=== PATIENT | female | born 1955 | race Caucasian/White ===

== ENCOUNTER → 2016-08-12 | Outpatient (CLI) | payer OTHER, MEDICAID ==
[2016-05-07 13:13] VITALS: BP 111/92
--- NOTE | 2016-08-12 11:11 | RAD ---
HISTORY: Preoperative evaluation for shoulder surgery Study: Two view chest Comparison: 03/08/2016 Findings: Stable right IJ port catheter. The lungs are clear without consolidation, effusion or pneumothorax. The cardiac and mediastinal contours are within normal limits. The soft tissues are unremarkable. IMPRESSION: 1. No acute cardiopulmonary abnormality. Reported By:
[2016-08-12 11:33] LABS: BILIRUBIN,URINE NEGATIVE (NEGATIVE); BLOOD/HEMOGLOBIN,URINE 3+ (NEGATIVE); GLUCOSE, URINE 4+ (NEGATIVE); KETONES,URINE NEGATIVE (NEGATIVE); LEUKOCYTE ESTERASE ,URINE NEGATIVE (NEGATIVE); NITRITES,URINE NEGATIVE (NEGATIVE); PROTEIN,URINE NEGATIVE (NEGATIVE); UROBILINOGEN,URINE NORMAL (NORMAL)
[2016-08-12 11:40] LABS: ALANINE AMINOTRANSFERASE 26 Units/L (12-78); ALBUMIN 3.7 g/dL (3.4-5.0); ALKALINE PHOSPHATASE 103 Units/L (46-116); ASPARTATE AMINO TRANSFERASE 13 Units/L (15-37); BLOOD UREA NITROGEN 19 mg/dL (7-18); CALCIUM 8.7 mg/dL (8.5-10.1); CARBON DIOXIDE 27.1 mmol/L (21-32); CHLORIDE 103 mmol/L (98-107); COR NA(FOR HYPERGLY) 142 mmol/L (136-145); CREATININE 0.81 mg/dL (0.55-1.02); GLUCOSE 223 mg/dL (65-99); SODIUM 139 mmol/L (136-145); TOTAL PROTEIN 7.4 g/dL (6.4-8.2); eGFR BLACK RACES > 60 (>60); eGFR NON BLACK RACES > 60 (>60)
[2016-08-12 11:42] LABS: APPEARANCE,URINE CLEAR (CLEAR); BACTERIA,URINE TRACE /HPF (NEGATIVE); COLOR,URINE YELLOW (YELLOW); SQUAMOUS EPITHELIAL CELL,UR RARE /HPF (NEGATIVE)
[2016-08-12 11:53] LABS: BASOPHILS # (AUTO) 0.1 X10^3/uL (0.0-0.1); BASOPHILS % (AUTO) 1.4 % (0.2-1.0); EOSINOPHILS # (AUTO) 0.2 x10^3/uL (0.0-0.2); EOSINOPHILS % (AUTO) 1.8 % (0.9-2.9); HEMATOCRIT 46.6 % (36.0-47.0); HEMOGLOBIN 15.4 g/dL (12.0-16.0); LYMPHOCYTES # (AUTO) 3.1 X10^3/uL (1.3-2.9); LYMPHOCYTES % (AUTO) 31.8 % (21.0-51.0); MEAN CORPUSCULAR HEMOGLOBIN 30.1 pg (27.0-34.0); MEAN CORPUSCULAR HGB CONC 33.2 g/dL (33.0-35.0); MEAN CORPUSCULAR VOLUME 90.7 fL (80.0-100.0); MEAN PLATELET VOLUME 9.9 fL (7.4-11.0); MONOCYTES # (AUTO) 0.6 x10^3/uL (0.3-0.8); MONOCYTES % (AUTO) 6.8 % (0.0-13.0); NEUTROPHILS # (AUTO) 5.6 x10^3/uL (2.2-4.8); NEUTROPHILS % (AUTO) 58.2 % (42.0-75.0); PLATELET COUNT 270 X10^3/uL (150.0-450.0); RED BLOOD COUNT 5.14 X10^6/uL (3.5-5.4); RED CELL DISTRIBUTION WIDTH 14.5 % (11.6-16.5); WHITE BLOOD COUNT 9.6 X10^3/uL (3.6-10.0)
[2016-08-12 12:38] LABS: ERYTHROCYTE SEDIMENTATION RATE 86 MM/HOUR (0-20)
== END ==
LOC: LAB 10:32
PROVIDERS: ATTEND Specialist
DX: Z01.818 Encounter for other preprocedural examination (principal); Z01.810 Encounter for preprocedural cardiovascular examination; Z01.811 Encounter for preprocedural respiratory examination; Z79.899 Other long term (current) drug therapy; Z11.8 Encounter for screening for other infectious and parasitic diseases; M75.82 Other shoulder lesions, left shoulder; M19.012 Primary osteoarthritis, left shoulder
CPT/HCPCS: 36415; 71020; 80053; 81001; 85025; 85652; 86140; 87641; 93005; 93010

== ENCOUNTER → 2016-08-18 | Day surgery (SDC) | payer OTHER, MEDICAID ==
[~2016-08-18] MED LIST: ADRENALINE CHL INJ ONE; BENADRYL INJ 50 MG VIAL IVP PRN; D5 LR 1000 ML 1,000 ML IV ONE; DILAUDID INJ ONE; DIPRIVAN VIAL ONE; DYLOJECT INJ ONE; KENALOG INJ 40 MG ONE; MARCAINE 0.25% INJ ONE; MARCAINE 0.25% WITH EPI IJ ONE; NEOSTIGMINE INJ ONE; NORCURON INJ 10 MG VIAL ONE; NS 50 ML IV + SPIKE MINIBAG* 50 ML IV ONE; NS IRRIGATION 3000 ML 3,000 ML with ADRENALINE CHL INJ 1 MG IR ONE; PHENERGAN INJ 25 MG IVP PRN; QUELICIN (OR ANECTINE) ONE; REGLAN INJ 10 MG VIAL IVP PRN; ROBINUL ONE; ULTANE GAS IN ONE; VERSED ONE; ZOFRAN INJ 4 MG VIAL IVP PRN; ZOFRAN INJ 4 MG VIAL ONE
[2016-08-18] MEDS: ANCEF VIAL 1 GM ONE ×4 (08:30→08:45)
[2016-08-18] MEDS: FENTANYL INJ 100 mcg ONE ×2 (08:32→08:40)
[2016-08-18] MEDS: DILAUDID INJ IVP PRN ×2 (09:56→10:08)
[2016-08-18 11:34] VITALS: BP 106/64
== END ==
LOC: SURG1 07:27
PROVIDERS: ATTEND Specialist
PROC: 0MN24ZZ Release Left Shoulder Bursa and Ligament, Percutaneous Endoscopic Approach (ICD-10-PCS; principal; 2016-08-18 08:30)
PROC: 0PBB4ZZ Excision of Left Clavicle, Percutaneous Endoscopic Approach (ICD-10-PCS; principal; 2016-08-18 08:30)
DX: M75.42 Impingement syndrome of left shoulder (principal); M19.012 Primary osteoarthritis, left shoulder
CPT/HCPCS: A4216; A4222; S0020; J0170; J0330; J0690; J1170; J2250; J2405; J2710; J3010; J3301; J3490; J7120

== ENCOUNTER 2016-08-23 08:42 | Emergency (ER) | payer OTHER, MEDICAID ==
[2016-08-23 08:52] VITALS: BP 152/88; BMI 32.1
--- NOTE | 2016-08-23 09:38 | DR.GENAD ---
HPI - PCP Primary Care Physician: holli - HPI Comment HPI Comment: PATIENT HAD LEFT ROTATORY CUFF REPAIR 5 DAYS AGO. ONE OF THE WOUND IS DRAINIG. NO FEVER OR REDNESS. - Complaint/Symptoms Chief Complaint Doctors Comments: WOUND DRAINAGE. Chief Complaint:: patient stated had shoulder surgery on 08-18-16 and it starting bleeding and her home health aid stated she could not change the dressing due to bleeding. the office stated to come to the er. 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 - Family History History of Family Medical Conditions: Yes Family Medical History: Diabetes Mellitus, Cancer, [place], Coronary Artery Disease, Sudden Cardiac , Hypertension - Social History Does patient currently use any type of tobacco product: Yes Have you used tobacco products in the last 12 months: Yes Type of Tobacco Use: Cigarettes How many years tobacco product used: 40 Does any household member use tobacco: No Alcohol Use: None Do you use any recreational Drugs:: No Lives With: Family Lives Where: Home - infectious screening In the last 2 months have you had wt loss of >10#?: NO Have you had fever, night sweats or hemotysis?: No Have you traveled outside the country in the last 6 months?: No Isolation: Standard ROS - Review of Systems Constitutional: No Symptoms Reported. negative: Fever Eyes: No Symptoms Reported ENTM: No Symptoms Reported Respiratoy: No Symptoms Reported Cardiovascular: No Symptoms Reported Gastrointestinal/Abdominal: No Symptoms Reported Genitourinary: No Symptoms Reported Neurological: No Symptoms Reported Musculoskeletal: Left, Shoulder Integumentary: Wound (DRAINAGE LEFT SHOULDER WOUND.) Endocrine: No Symptoms Reported All Other Systems: Reviewed and Negative PE - Vital Signs Vitals: Pulse Rate 105 Respiratory Rate 16 Blood Pressure [Right Arm] 127/61 Blood Pressure [Left Arm] 137/60 Blood Pressure 152/88 O2 Sat by Pulse Oximetry 99 - General Limitations: No Limitations - Head Head Exam: Normal Inspection - Eyes Eye exam: Normal Appearance - Neck Neck Exam: Trachea Midline - Respiratory Respiratory Exam: Bilateral Clear to Auscultation - Cardiovascular Cardiovascular Exam: Regular Rate, Normal Rhythm, Normal Heart Sounds - Extremities Extremities Exam: Tenderness (LT SHOULDER) - Neurologic Neurological Exam: Alert, Oriented X3 - Skin Skin Exam: Other (LT SHOULDER WOUND RICHARD INTACT. NO BLEEDING OR DRAINAGE.) MDM - Differential Diagnosis Differential Diagnosis: WOUCH CHECK RIGHT SHOULDER. WOUND DRESSING. Course - Treatment Treatment: SEE ORDERS. DRESSING CHANGE IN ED. - Education/Counseling Education/Counseling: Patient, Education Educated On: Diagnosis, Needs for Follow Up - Diagnosis Discharge Problem: Visit for wound check - Discharge Plan Disposition: 01 HOME, SELF-CARE Condition: Stable - Follow ups/Referrals Follow ups/Referrals: FARSHAD FRAUSTO [Primary Care Provider] - 3 days - Instructions Instructions: Wound Care Additional Instructions: RETURN [facility] IF WORSE.
== END 2016-08-23 10:01 | disposition home or self-care (01) ==
LOC: ER 08:42
DX: Z48.01 Encounter for change or removal of surgical wound dressing (principal)
CPT/HCPCS: 10060; 99281; 99282

== ENCOUNTER 2016-08-26 07:58 | Observation (INO) | payer OTHER, MEDICAID ==
[2016-08-26] MEDS ORDERED: NS 1000 ML 1,000 ML IV ONE (08:06)
[2016-08-26] MEDS ORDERED: ZOFRAN INJ 4 MG VIAL IVP ONE (08:07)
--- NOTE | 2016-08-26 08:11 | DR.GENAD ---
HPI - PCP Primary Care Physician: hunt - Complaint/Symptoms Chief Complaint:: patient stated she has been vomiting and diarrhea since last night with abd pain. 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 - Family History History of Family Medical Conditions: Yes Family Medical History: Diabetes Mellitus, Cancer, [place], Coronary Artery Disease, Sudden Cardiac , Hypertension - Social History Does patient currently use any type of tobacco product: Yes Have you used tobacco products in the last 12 months: Yes How many years tobacco product used: 30 Does any household member use tobacco: No Alcohol Use: None Do you use any recreational Drugs:: No Lives With: Family Lives Where: Home - infectious screening In the last 2 months have you had wt loss of >10#?: NO Have you had fever, night sweats or hemotysis?: No Have you traveled outside the country in the last 6 months?: No Isolation: Standard ROS - Review of Systems Constitutional: Weakness Eyes: No Symptoms Reported ENTM: No Symptoms Reported Respiratoy: No Symptoms Reported Cardiovascular: No Symptoms Reported Gastrointestinal/Abdominal: Diarrhea, Nausea, Vomiting Genitourinary: No Symptoms Reported Neurological: No Symptoms Reported Musculoskeletal: No Symptoms Reported Integumentary: No Symptoms Reported Hematologic/Lymphatic: No Symptoms Reported Endocrine: No Symptoms Reported All Other Systems: Reviewed and Negative PE - Vital Signs Vitals: Temperature 98.2 F Pulse Rate 120 Respiratory Rate 16 Blood Pressure [Right Arm] 127/61 Blood Pressure [Left Arm] 137/60 Blood Pressure 130/95 O2 Sat by Pulse Oximetry 95 - General Limitations: No Limitations General Appearance: Alert - Eyes Eye exam: Normal Appearance, EOMI. negative: Scleral Icterus, Conjunctival Injection - ENT ENT Exam: Mucous Membranes Dry External Ear Exam: Normal External Inspection - Neck Neck Exam: Normal Inspection, Full ROM, Trachea Midline - Chest Chest Inspection: Normal Inspection - Respiratory Respiratory Exam: negative: Accessory Muscle Use, Respiratory Distress Respiratory Exam: Bilateral Clear to Auscultation - Cardiovascular Cardiovascular Exam: Tachycardia - Abdominal Exam Abdominal Exam: Normal Inspection, Normal Bowel Sounds, Soft. negative: Distention, Guarding, Rebound - Neurologic Neurological Exam: Alert, Oriented X3, CN II-XII Intact - Psychiatric Psychiatric Exam: Depressed - Skin Skin Exam: Intact, Normal Color Course - Consultation Called: 09:50 Call Returned: 09:50 Consultation Comments: case discussed with DR. Hunt admit and get AAS. give IVF ROR - Labs Reviewed Result Diagrams: 08/26/16 08:17 08/26/16 08:17 Laboratory: WBC 11.5 X10^3/uL (3.6-10.0) H 08/26/16 08:17 RBC 5.25 X10^6/uL (3.5-5.4) 08/26/16 08: Hgb 16.1 g/dL (12.0-16.0) H 08/26/16 08: Hct 47.2 % (36.0-47.0) H 08/26/16 08: MCV 89.9 fL (80.0-100.0) 08/26/16 08: MCH 30.7 pg (27.0-34.0) 08/26/16 08: MCHC 34.2 g/dL (33.0-35.0) 08/26/16 08: RDW 14.7 % (11.6-16.5) 08/26/16 08:17 Plt Count 229 X10^3/uL (150.0-450.0) 08/26/16 08:17 MPV 9.5 fL (7.4-11.0) 08/26/16 08:17 Neut % 86.2 % (42.0-75.0) H 08/26/16 08: Lymph % 6.3 % (21.0-51.0) L 08/26/16: [place] % 5.5 % (0.0-13.0) 08/26/16 08:17 Eos % 1.0 % (0.9-2.9) 08/26/16 08: Baso % 1.0 % (0.2-1.0) 08/26/16 08: Neut # 9.9 x10^3/uL (2.2-4.8) H 08/26/16 08:17 Lymph # 0.7 X10^3/uL (1.3-2.9) L 08/26/16 08:17 [place] # 0.6 x10^3/uL (0.3-0.8) 08/26/16 08:17 Eos # 0.1 x10^3/uL (0.0-0.2) 08/26/16 08:17 Baso # 0.1 X10^3/uL (0.0-0.1) 08/26/16 08:17 Absolute Nucleated RBC 0.0 /100WBC 08/26/16 08:17 Sodium 142 mmol/L (136-145) 08/26/16 08:17 Corrected Sodium 143 mmol/L (136-145) 08/26/16 08:17 Potassium 4.2 mmol/L (3.5-5.1) 08/26/16 08:17 Chloride 104 mmol/L (98-107) 08/26/16 08:17 Carbon Dioxide 19.4 mmol/L (21-32) L 08/26/16 08:17 BUN 16 mg/dL (7-18) 08/26/16 08:17 Creatinine 0.76 mg/dL (0.55-1.02) 08/26/16 08:17 Est GFR (MDRD) Af Amer > 60 (>60) 08/26/16 08:17 Est GFR (MDRD) Non-Af > 60 (>60) 08/26/16 08:17 Glucose 154 mg/dL (65-99) H 08/26/16 08:17 Calcium 8.4 mg/dL (8.5-10.1) L 08/26/16 08:17 Corrected Calcium TNP 08/26/16 08:17 Total Bilirubin 0.40 mg/dL (0.2-1.0) 08/26/16 08:17 AST 23 Units/L (15-37) 08/26/16 08:17 ALT 30 Units/L (12-78) 08/26/16 08:17 Alkaline Phosphatase 99 Units/L (46-116) 08/26/16 08:17 Total Protein 7.2 g/dL (6.4-8.2) 08/26/16 08:17 Albumin 3.5 g/dL (3.4-5.0) 08/26/16 08:17 Globulin 3.7 g/dL (2.5-4.5) 08/26/16 08:17 Albumin/Globulin Ratio 0.9 Ratio (1.1-2.1) L 08/26/16 08:17 Lipase 64 Units/L (73-393) L 08/26/16 08:17 Specimen Type Clean catch urine 08/26/16 09:25 Urine Color Yellow (YELLOW) 08/26/16 09:25 Urine Appearance Hazy (CLEAR) 08/26/16 09:25 Urine pH 5.0 (5.0 - 8.0) 08/26/16 09:25 Ur Specific [place] 1.025 (1.000-1.030) 08/26/16 09:25 Urine Protein 2+ (NEGATIVE) 08/26/16 09:25 Urine Glucose (UA) 4+ (NEGATIVE) 08/26/16 09:25 Urine Ketones 4+ (NEGATIVE) 08/26/16 09:25 Urine Occult Blood 4+ (NEGATIVE) 08/26/16 09:25 Urine Nitrite Negative (NEGATIVE) 08/26/16 09:25 Urine Bilirubin Negative (NEGATIVE) 08/26/16 09:25 Urine Urobilinogen Normal (NORMAL) 08/26/16 09:25 Ur Leukocyte Esterase Negative (NEGATIVE) 08/26/16 09:25 Urine RBC 0-3 /HPF (NEGATIVE) 08/26/16 09:25 Urine WBC 0-3 /HPF (NEGATIVE) 08/26/16 09:25 Ur Squamous Epith Cells Few /HPF (NEGATIVE) 08/26/16 09:25 Urine Bacteria Trace /HPF (NEGATIVE) 08/26/16 09:25 Ur Culture Indicated? No/not indicated 08/26/16 09:25 Acetone, Semi-Quant Moderate (NEGATIVE) H 08/26/16 08:17 - Diagnosis Discharge Problem: Gastroenteritis - Discharge Plan Condition: Stable - Follow ups/Referrals Follow ups/Referrals: Stuart Toth [Primary Care Provider] - 3 days - Instructions
[2016-08-26] MEDS ORDERED: ZOFRAN INJ 4 MG VIAL ONE (08:18)
[2016-08-26] MEDS ORDERED: NS 1000 ML 1,000 ML ONE (08:18)
[2016-08-26 08:33] LABS: BASOPHILS # (AUTO) 0.1 X10^3/uL (0.0-0.1); EOSINOPHILS # (AUTO) 0.1 x10^3/uL (0.0-0.2); HEMATOCRIT 47.2 % (36.0-47.0); HEMOGLOBIN 16.1 g/dL (12.0-16.0); LYMPHOCYTES # (AUTO) 0.7 X10^3/uL (1.3-2.9); LYMPHOCYTES % (AUTO) 6.3 % (21.0-51.0); MEAN CORPUSCULAR HEMOGLOBIN 30.7 pg (27.0-34.0); MEAN CORPUSCULAR HGB CONC 34.2 g/dL (33.0-35.0); MEAN CORPUSCULAR VOLUME 89.9 fL (80.0-100.0); MEAN PLATELET VOLUME 9.5 fL (7.4-11.0); MONOCYTES # (AUTO) 0.6 x10^3/uL (0.3-0.8); MONOCYTES % (AUTO) 5.5 % (0.0-13.0); NEUTROPHILS # (AUTO) 9.9 x10^3/uL (2.2-4.8); NEUTROPHILS % (AUTO) 86.2 % (42.0-75.0); PLATELET COUNT 229 X10^3/uL (150.0-450.0); RED BLOOD COUNT 5.25 X10^6/uL (3.5-5.4); RED CELL DISTRIBUTION WIDTH 14.7 % (11.6-16.5); WHITE BLOOD COUNT 11.5 X10^3/uL (3.6-10.0)
[2016-08-26 08:44] LABS: ALANINE AMINOTRANSFERASE 30 Units/L (12-78); ALBUMIN 3.5 g/dL (3.4-5.0); ALKALINE PHOSPHATASE 99 Units/L (46-116); ASPARTATE AMINO TRANSFERASE 23 Units/L (15-37); BLOOD UREA NITROGEN 16 mg/dL (7-18); CALCIUM 8.4 mg/dL (8.5-10.1); CARBON DIOXIDE 19.4 mmol/L (21-32); CHLORIDE 104 mmol/L (98-107); COR NA(FOR HYPERGLY) 143 mmol/L (136-145); CREATININE 0.76 mg/dL (0.55-1.02); GLUCOSE 154 mg/dL (65-99); LIPASE 64 Units/L (73-393); SODIUM 142 mmol/L (136-145); TOTAL PROTEIN 7.2 g/dL (6.4-8.2); eGFR BLACK RACES > 60 (>60); eGFR NON BLACK RACES > 60 (>60)
[2016-08-26 09:38] LABS: BILIRUBIN,URINE NEGATIVE (NEGATIVE); BLOOD/HEMOGLOBIN,URINE 4+ (NEGATIVE); GLUCOSE, URINE 4+ (NEGATIVE); KETONES,URINE 4+ (NEGATIVE); LEUKOCYTE ESTERASE ,URINE NEGATIVE (NEGATIVE); NITRITES,URINE NEGATIVE (NEGATIVE); PROTEIN,URINE 2+ (NEGATIVE); UROBILINOGEN,URINE NORMAL (NORMAL)
[2016-08-26 09:48] LABS: APPEARANCE,URINE HAZY (CLEAR); BACTERIA,URINE TRACE /HPF (NEGATIVE); COLOR,URINE YELLOW (YELLOW); RBC,URINE 0-3 /HPF (NEGATIVE); SQUAMOUS EPITHELIAL CELL,UR FEW /HPF (NEGATIVE)
[2016-08-26] MEDS ORDERED: REGLAN INJ 10 MG VIAL IVP ONE (09:59)
[2016-08-26] MEDS ORDERED: REGLAN INJ 10 MG VIAL ONE (10:00)
--- NOTE | 2016-08-26 10:31 | RAD ---
HISTORY: Abdominal pain, nausea, vomiting Study: Acute abdominal series Comparison: Abdomen CT 03/07/2014 Findings: Right subclavian port catheter terminates in the region of the SVC. The lungs are clear without cons olidation, effusion or pneumothorax. The cardiac and mediastinal contours are within normal limits. Flat plate and upright evaluation of the abdomen demonstrates a normal bowel gas pattern. No gross f ree intraperitoneal air. No pathological soft tissue mass or calcification can be observed. There i s chronic lumbar dextroscoliosis. Cholecystectomy clips are present. IMPRESSION: 1. No acute cardiopulmonary disease. 2. No evidence for acute abdominal pathology identified. Reported By:
[2016-08-26] MEDS ORDERED: LINZESS PO ONE (12:58)
[2016-08-26] MEDS ORDERED: COLACE CAP 100 MG PO STA (12:58)
[2016-08-26] MEDS ORDERED: REQUIP PO PRN (13:02)
[2016-08-26] MEDS: NS 1000 ML 1,000 ML IV SCH ×2 (13:12→21:13)
[2016-08-26] MEDS ORDERED: [UNRECOGNIZED DRUG - OTHER] PO SCH (13:15)
[2016-08-26] MEDS: CLARITIN PO SCH (13:39)
[2016-08-26] MEDS: ASPIRIN EC 81 MG PO SCH (13:39)
[2016-08-26] MEDS: NexIUM PO SCH (13:39)
[2016-08-26] MEDS: ACTOS PO SCH (13:40)
[2016-08-26] MEDS: GLUCOPHAGE XR PO SCH ×2 (13:40→21:09)
[2016-08-26] MEDS: SINGULAIR TAB 10 MG PO SCH (13:40)
[2016-08-26] MEDS: SYNTHROID 100 mcg TAB PO SCH (13:40)
[2016-08-26] MEDS: NEURONTIN CAP 300 MG PO SCH ×2 (13:40→21:08)
[2016-08-26] MEDS: MOBIC TAB 15 MG PO SCH (13:40)
[2016-08-26] MEDS: [UNRECOGNIZED DRUG - OTHER] PO SCH (13:41)
[2016-08-26] MEDS: [UNRECOGNIZED DRUG - OTHER] PO SCH (13:41)
[2016-08-26 14:23] VITALS: BMI 32.8
[2016-08-26] MEDS: NORCO 10/325 TAB PO PRN ×2 (14:59→21:09)
[2016-08-26] MEDS: ZOFRAN INJ 4 MG VIAL IVP PRN (16:32)
[2016-08-26] MEDS: PHENERGAN TAB 25 MG PO PRN (21:10)
[2016-08-26] MEDS: LIPITOR TAB 20 MG PO SCH (21:10)
[2016-08-27] MEDS: NS 1000 ML 1,000 ML IV SCH ×3 (03:00→16:44)
[2016-08-27] MEDS: ZOFRAN INJ 4 MG VIAL IVP PRN ×2 (04:15→13:24)
[2016-08-27] MEDS: NORCO 10/325 TAB PO PRN ×4 (04:15→23:01)
[2016-08-27] MEDS: NEURONTIN CAP 300 MG PO SCH ×3 (05:45→21:08)
[2016-08-27 05:56] LABS: BASOPHILS # (AUTO) 0.1 X10^3/uL (0.0-0.1); BASOPHILS % (AUTO) 0.8 % (0.2-1.0); EOSINOPHILS # (AUTO) 0.2 x10^3/uL (0.0-0.2); EOSINOPHILS % (AUTO) 2.8 % (0.9-2.9); HEMATOCRIT 43.5 % (36.0-47.0); HEMOGLOBIN 14.4 g/dL (12.0-16.0); LYMPHOCYTES # (AUTO) 1.5 X10^3/uL (1.3-2.9); LYMPHOCYTES % (AUTO) 21.2 % (21.0-51.0); MEAN CORPUSCULAR HEMOGLOBIN 29.9 pg (27.0-34.0); MEAN CORPUSCULAR HGB CONC 33.1 g/dL (33.0-35.0); MEAN CORPUSCULAR VOLUME 90.3 fL (80.0-100.0); MEAN PLATELET VOLUME 9.9 fL (7.4-11.0); MONOCYTES # (AUTO) 0.9 x10^3/uL (0.3-0.8); MONOCYTES % (AUTO) 12.6 % (0.0-13.0); NEUTROPHILS # (AUTO) 4.4 x10^3/uL (2.2-4.8); NEUTROPHILS % (AUTO) 62.6 % (42.0-75.0); PLATELET COUNT 211 X10^3/uL (150.0-450.0); RED BLOOD COUNT 4.82 X10^6/uL (3.5-5.4); RED CELL DISTRIBUTION WIDTH 14.7 % (11.6-16.5)
[2016-08-27 06:18] LABS: ALANINE AMINOTRANSFERASE 27 Units/L (12-78); ALKALINE PHOSPHATASE 81 Units/L (46-116); ASPARTATE AMINO TRANSFERASE 23 Units/L (15-37); BLOOD UREA NITROGEN 15 mg/dL (7-18); CALCIUM 7.5 mg/dL (8.5-10.1); CARBON DIOXIDE 23.1 mmol/L (21-32); CHLORIDE 105 mmol/L (98-107); COR CA(FOR HYPOALB) 8.3 mg/dL (8.5-10.1); COR NA(FOR HYPERGLY) 142 mmol/L (136-145); CREATININE 0.75 mg/dL (0.55-1.02); GLUCOSE 170 mg/dL (65-99); SODIUM 140 mmol/L (136-145); TOTAL PROTEIN 6.3 g/dL (6.4-8.2); eGFR BLACK RACES > 60 (>60); eGFR NON BLACK RACES > 60 (>60)
[2016-08-27] MEDS: ACTOS PO SCH (09:57)
[2016-08-27] MEDS: MOBIC TAB 15 MG PO SCH (09:57)
[2016-08-27] MEDS: CLARITIN PO SCH (09:57)
[2016-08-27] MEDS: GLUCOPHAGE XR PO SCH ×2 (09:58→21:08)
[2016-08-27] MEDS: SYNTHROID 100 mcg TAB PO SCH (09:58)
[2016-08-27] MEDS: COLACE CAP 100 MG PO SCH (09:58)
[2016-08-27] MEDS: ASPIRIN EC 81 MG PO SCH (09:58)
[2016-08-27] MEDS: SINGULAIR TAB 10 MG PO SCH (09:58)
[2016-08-27] MEDS: NexIUM PO SCH (09:58)
[2016-08-27] MEDS: [UNRECOGNIZED DRUG - OTHER] PO SCH (10:04)
[2016-08-27] MEDS: [UNRECOGNIZED DRUG - OTHER] PO SCH (10:04)
--- NOTE | 2016-08-27 12:53 | RAD ---
HISTORY: Fecal impaction Study: Frontal view of the chest, flat and upright views of the abdomen Comparison: None. Findings: Cardiomediastinal silhouette is normal in size. No focal consolidations, pleural effusions or pneumo thorax. Osseous structures are without acute abnormality. Flat and upright views of the abdomen demonstrates a normal bowel gas pattern. No free air. No abno rmal calcifications or abnormal soft tissue shadows. No acute bony abnormalities. IMPRESSION: 1. No acute cardiopulmonary disease. 2. No evidence for acute abdominal pathology. Reported By:
[2016-08-27] MEDS: PHENERGAN TAB 25 MG PO PRN (19:52)
[2016-08-27] MEDS ORDERED: SNACK - Diabetic Appropriate PO SCH (20:00)
[2016-08-27] MEDS: LIPITOR TAB 20 MG PO SCH (21:07)
[2016-08-28] MEDS: ZOFRAN INJ 4 MG VIAL IVP PRN ×2 (00:21→09:26)
[2016-08-28] MEDS: NS 1000 ML 1,000 ML IV SCH (02:35)
[2016-08-28] MEDS: NORCO 10/325 TAB PO PRN (05:05)
[2016-08-28] MEDS: NEURONTIN CAP 300 MG PO SCH (05:35)
[2016-08-28 08:26] VITALS: BP 95/51
[2016-08-28] MEDS: [UNRECOGNIZED DRUG - OTHER] PO SCH (09:15)
[2016-08-28] MEDS: [UNRECOGNIZED DRUG - OTHER] PO SCH (09:16)
[2016-08-28] MEDS: GLUCOPHAGE XR PO SCH (09:17)
[2016-08-28] MEDS: SYNTHROID 100 mcg TAB PO SCH (09:17)
[2016-08-28] MEDS: CLARITIN PO SCH (09:17)
[2016-08-28] MEDS: ASPIRIN EC 81 MG PO SCH (09:17)
[2016-08-28] MEDS: NexIUM PO SCH (09:17)
[2016-08-28] MEDS: COLACE CAP 100 MG PO SCH ×2 (09:17→09:21)
[2016-08-28] MEDS: ACTOS PO SCH (09:17)
[2016-08-28] MEDS: SINGULAIR TAB 10 MG PO SCH (09:18)
[2016-08-28] MEDS: MOBIC TAB 15 MG PO SCH (10:08)
== END 2016-08-28 11:30 | disposition home or self-care (01) ==
LOC: ER 07:58 → MED/SURG 09:52
PROVIDERS: ADMIT Obstetrics & Gynecology Obstetrics; ATTEND Obstetrics & Gynecology Obstetrics
DX: K52.89 Other specified noninfective gastroenteritis and colitis (principal); K59.1 Functional diarrhea; R10.84 Generalized abdominal pain; R11.2 Nausea with vomiting, unspecified; J44.9 Chronic obstructive pulmonary disease, unspecified; K21.9 Gastro-esophageal reflux disease without esophagitis; I10 Essential (primary) hypertension; E03.8 Other specified hypothyroidism; M13.89 Other specified arthritis, multiple sites; D72.828 Other elevated white blood cell count; E11.65 Type 2 diabetes mellitus with hyperglycemia; R25.8 Other abnormal involuntary movements
CPT/HCPCS: 36415; 74022; 80053; 81001; 82009; 83690; 85025; 94760; 96365; 96374; 96375; 97535; 99284; A4216; G8987; G8988; Q0169; G0378; J2405; J2765

== ENCOUNTER → 2016-11-25 | Outpatient (CLI) | payer OTHER, MEDICAID ==
--- NOTE | 2016-11-25 15:18 | MG ---
Examination: Bilateral diagnostic mammogram and left breast ultrasound. Clinical history: Pain in left axilla, questionable enlarged lymph nodes. Technique: Multiple digital images of both breasts were obtained. Targeted left breast ultrasound wa s also obtained evaluating the left axillary region. Comparison: 10/28/2015. Findings: The breasts are composed of scattered fibroglandular densities. Benign-appearing calcifications and vascular calcifications are noted in the breasts bilaterally. No suspicious mass, area of architectural distortion or suspicious cluster of microcalcifications is noted. Targeted left breast ultrasound evaluating the left axillary region reveals no sonographic abnormali ty. No suspicious cystic or solid mass is noted. No enlarged lymph nodes are evident in the left axi lla. Impression: 1. No mammographic or sonographic evidence of malignancy. BI-RADS category 2-benign findings. Recommend routine annual screening mammogram. Diagnostic CAD was utilized and reviewed. * 0 (ZERO) - ASSESSMENT INCOMPLETE; ADDITIONAL IMAGING IS NEEDED. * 0C - ASSESSMENT INCOMPLETE, NEEDS ADDITIONAL IMAGING EVALUATION AND/OR PRIOR MAMMOGRAMS FOR COMPAR [place]. * 1/1 (ONE) - NEGATIVE. * 2/II (TWO) - BENIGN FINDINGS. * 3/III (THREE) - PROBABLY BENIGN FINDING; SHORT INTERVAL FOLLOW-UP SUGGESTED. * 4/IV (FOUR) - SUSPICIOUS ABNORMALITY; BIOPSY SHOULD BE CONSIDERED. * 5/V - HIGHLY SUSPICIOUS OF MALIGNANCY; BIOPSY SHOULD BE PERFORMED. * 6/IV - KNOWN BIOPSY PROVEN MALIGNANCY-APPROPRIATE ACTION SHOULD BE TAKEN. A NEGATIVE X-RAY REPORT SHOULD NOT DELAY BIOPSY IF A DOMINANT OR CLINICALLY SUSPICIOUS MASS IS PRESENT; 4 TO 8 PERCENT OF CANCERS ARE NOT IDENTIFIED BY X-RAY. A NEGATIVE REPORT MAY REINFORCE THE CLINICAL IMPRESSION. ADENOSIS AND DENSE BREASTS MAY OBSCURE AN UNDERLYING NEOPLASM. Reported By:
--- NOTE | 2016-11-25 15:31 | US ---
History: Uterine bleeding. Exam: Pelvic ultrasound Comparison: None. Technique: Multiple grayscale and color flow Doppler images of the pelvis were obtained. Findings: The uterus measures 4.0 x 3.4 by 4.0 cm. No evidence for myometrial masses or calcifications can be observed. The endometrial stripe is normal in size measuring 1 mm. The right and left adnexa are unremarkable. The ovaries are not well seen. No adnexal mass or free fluid can be identified. IMPRESSION: 1. The ovaries are not well seen. 2. Otherwise, unremarkable pelvic ultrasound. Reported By:
== END ==
LOC: RAD 13:38
PROVIDERS: ATTEND Obstetrics & Gynecology Obstetrics
DX: N93.8 Other specified abnormal uterine and vaginal bleeding (principal); R59.0 Localized enlarged lymph nodes
CPT/HCPCS: 76642; 76856; 77066

== ENCOUNTER 2016-11-30 09:39 | Emergency (ER) | payer OTHER, MEDICAID ==
[2016-11-30 09:45] VITALS: BMI 32.1
[2016-11-30] MEDS ORDERED: DUONEB 0.5 MG/3 MG ONE (09:46)
[2016-11-30] MEDS ORDERED: DUONEB 0.5 MG/3 MG NEB ONE (09:47)
--- NOTE | 2016-11-30 09:57 | DR.GENAD ---
HPI - PCP Primary Care Physician: peñaloza - Complaint/Symptoms Chief Complaint:: pt has been sick coughing for two weeks now she woke up this moring and was having a hard time breathing - Nurses notes reviewed Nurses Notes Review: Yes - Source History Provided: Patient - Mode of Arrival Mode of Arrival: Ambulatory - Timing Onset of Chief Complaint: 11/24/16 Came on: Gradually - Duration Duration: Constant How lon Duration: Weeks - Location Location: lungs - Severity Severity: Moderate - Modifying Factors Worsens:: exertion - Associated Signs and Symptoms Associated Signs and Symptoms: productive cough - Other History Other History: COPD PMH - PMH Past Medical History: Yes Past Medical History: Arthritis, COPD, Diabetes, GERD, Hypertension, Hypothyroidism Past Surgical History: Yes 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 - Family History History of Family Medical Conditions: Yes Family Medical History: Diabetes Mellitus, Hypertension - Social History Does patient currently use any type of tobacco product: Yes Have you used tobacco products in the last 12 months: Yes Type of Tobacco Use: Cigarettes How many years tobacco product used: 20 Does any household member use tobacco: No Alcohol Use: None Do you use any recreational Drugs:: No Lives With: Alone Lives Where: Home - infectious screening In the last 2 months have you had wt loss of >10#?: NO Have you had fever, night sweats or hemotysis?: No Have you traveled outside the country in the last 6 months?: No Isolation: Standard ROS - Review of Systems Constitutional: No Symptoms Reported Eyes: No Symptoms Reported ENTM: Nose Discharge Respiratoy: Productive Cough Cardiovascular: No Symptoms Reported Gastrointestinal/Abdominal: No Symptoms Reported Genitourinary: No Symptoms Reported Neurological: No Symptoms Reported Musculoskeletal: No Symptoms Reported Integumentary: No Symptoms Reported Hematologic/Lymphatic: No Symptoms Reported Endocrine: No Symptoms Reported Psychiatric: Depression PE - Vital Signs Vitals: Temperature 98.5 F Pulse Rate [Right Brachial] 105 Pulse Rate 108 Respiratory Rate 22 Blood Pressure [Right Arm] 175/81 Blood Pressure [Left Arm] 137/60 Blood Pressure 162/87 O2 Sat by Pulse Oximetry 96 - General Limitations: No Limitations General Appearance: Alert, In No Apparent Distress - Head Head Exam: Normal Inspection - Eyes Eye exam: Normal Appearance, EOMI. negative: Scleral Icterus, Conjunctival Injection - ENT ENT Exam: Normal Exam, Normal Oropharynx External Ear Exam: Normal External Inspection Mouth Exam: Normal Inspection Throat Exam: Normal Inspection - Neck Neck Exam: Normal Inspection, Full ROM, Trachea Midline - Chest Chest Inspection: Normal Inspection - Respiratory Respiratory Exam: Respiratory Distress. negative: Normal Lung Sounds Bilat, Accessory Muscle Use Respiratory Exam: Bilateral Wheezing (moderate) - Abdominal Exam Abdominal Exam: Normal Inspection - Extremities Extremities Exam: Normal Inspection, Full ROM, Tenderness - Back Back Exam: Normal Inspection - Neurologic Neurological Exam: Alert, Oriented X3, CN II-XII Intact - Psychiatric Psychiatric Exam: Depressed - Skin Skin Exam: Intact, Normal Color ROR - Labs Reviewed Result Diagrams: 11/30/16 10:15 11/30/16 10:15 Laboratory: WBC 11.4 X10^3/uL (3.6-10.0) H 11/30/16 10:15 RBC 5.07 X10^6/uL (3.5-5.4) 11/30/16 10:15 Hgb 15.4 g/dL (12.0-16.0) 11/30/16 10:15 Hct 45.2 % (36.0-47.0) 11/30/16 10:15 MCV 89.1 fL (80.0-100.0) 11/30/16 10:15 MCH 30.4 pg (27.0-34.0) 11/30/16 10:15 MCHC 34.1 g/dL (33.0-35.0) 11/30/16 10:15 RDW 14.8 % (11.6-16.5) 11/30/16 10:15 Plt Count 263 X10^3/uL (150.0-450.0) 11/30/16 10:15 MPV 9.9 fL (7.4-11.0) 11/30/16 10:15 Neut % 54.8 % (42.0-75.0) 11/30/16 10:15 Lymph % 35.2 % (21.0-51.0) 11/30/16 10:15 [place] % 6.7 % (0.0-13.0) 11/30/16 10:15 Eos % 1.9 % (0.9-2.9) 11/30/16 10:15 Baso % 1.4 % (0.2-1.0) H 11/30/16 10:15 Neut # 6.3 x10^3/uL (2.2-4.8) H 11/30/16 10:15 Lymph # 4.0 X10^3/uL (1.3-2.9) H 11/30/16 10:15 [place] # 0.8 x10^3/uL (0.3-0.8) 11/30/16 10:15 Eos # 0.2 x10^3/uL (0.0-0.2) 11/30/16 10:15 Baso # 0.2 X10^3/uL (0.0-0.1) H 11/30/16 10:15 Absolute Nucleated RBC 0.0 /100WBC 11/30/16 10:15 Sample Site Rr 11/30/16 10:18 ABG pH 7.400 (7.35-7.45) 11/30/16 10:18 ABG pCO2 38.0 mmHg (35.0-45.0) 11/30/16 10:18 ABG pO2 77.0 mmHg (80.0-100.0) L 11/30/16 10:18 ABG HCO3 23.5 mmol/L (22-26) 11/30/16 10:18 ABG O2 Saturation 95.0 % (90-100) 11/30/16 10:18 ABG Base Excess -1.1 mmol/L (-2.0-2.0) 11/30/16 10:18 Nikolay Test Pos 11/30/16 10:18 A-a Gradient 75.0 mmHg 11/30/16 10:18 FiO2 28.000 11/30/16 10:18 Blood Gas Comments Pt sunil well. cdn 11/30/16 10:18 Sodium 137 mmol/L (136-145) 11/30/16 10:15 Corrected Sodium 141 mmol/L (136-145) 11/30/16 10:15 Potassium 3.8 mmol/L (3.5-5.1) 11/30/16 10:15 Chloride 102 mmol/L (98-107) 11/30/16 10:15 Carbon Dioxide 22.8 mmol/L (21-32) 11/30/16 10:15 BUN 18 mg/dL (7-18) 11/30/16 10:15 Creatinine 0.80 mg/dL (0.55-1.02) 11/30/16 10:15 Est GFR (MDRD) Af Amer > 60 (>60) 11/30/16 10:15 Est GFR (MDRD) Non-Af > 60 (>60) 11/30/16 10:15 Glucose 274 mg/dL (65-99) H 11/30/16 10:15 Calcium 8.7 mg/dL (8.5-10.1) 11/30/16 10:15 Corrected Calcium TNP 11/30/16 10:15 Total Bilirubin 0.40 mg/dL (0.2-1.0) 11/30/16 10:15 AST 10 Units/L (15-37) L 11/30/16 10:15 ALT 16 Units/L (12-78) 11/30/16 10:15 Alkaline Phosphatase 111 Units/L (46-116) 11/30/16 10:15 Creatine Kinase 36 Units/L (26-192) 11/30/16 10:15 CK-MB (CK-2) < 1.0 ng/mL (0-4.0) 11/30/16 10:15 CK/CKMB % Calc 2.8 % (<4) 11/30/16 10:15 Troponin I < 0.02 ng/mL (0-1.5) 11/30/16 10:15 Total Protein 7.3 g/dL (6.4-8.2) 11/30/16 10:15 Albumin 3.7 g/dL (3.4-5.0) 11/30/16 10:15 Globulin 3.6 g/dL (2.5-4.5) 11/30/16 10:15 Albumin/Globulin Ratio 1.0 Ratio (1.1-2.1) L 11/30/16 10:15 - EKG Rate: 96 [place]: LAD Rhythm: NSR Hypertrophy: None ST: Nonsp - Diagnosis Discharge Problem: COPD exacerbation Acute sinusitis Qualifiers: Sinusitis location: maxillary Recurrence: recurrent Qualified Code(s): J01.01 - Acute recurrent maxillary sinusitis - Discharge Plan Condition: Stable Prescriptions: Amoxicillin/Potassium Clav [Augmentin 875-125 Tablet] 1 tab PO Q12H #20 tab Prednisone [Prednisone DS Dosepak 10 mg (12 day)] 1 nilson PO ONCE #1 nilson - Follow ups/Referrals Follow ups/Referrals: TEMO PEÑALOZA [Primary Care Provider] - 3 days - Instructions
[2016-11-30] MEDS ORDERED: SOLU-Medrol 125 MG VIAL IVP ONE (10:05)
[2016-11-30] MEDS ORDERED: XOPENEX 1.25 MG/3 ML NEBULE NEB ONE (10:06)
[2016-11-30] MEDS ORDERED: XOPENEX 1.25 MG/3 ML NEBULE ONE (10:08)
[2016-11-30] MEDS ORDERED: SOLU-Medrol 125 MG VIAL ONE (10:19)
[2016-11-30 10:24] LABS: ABG ALLEN TEST POS; ABG BASE EXCESS -1.1 mmol/L (-2.0-2.0); ABG HCO3 23.5 mmol/L (22-26)
[2016-11-30 10:28] LABS: BASOPHILS # (AUTO) 0.2 X10^3/uL (0.0-0.1); BASOPHILS % (AUTO) 1.4 % (0.2-1.0); EOSINOPHILS # (AUTO) 0.2 x10^3/uL (0.0-0.2); EOSINOPHILS % (AUTO) 1.9 % (0.9-2.9); HEMATOCRIT 45.2 % (36.0-47.0); HEMOGLOBIN 15.4 g/dL (12.0-16.0); LYMPHOCYTES % (AUTO) 35.2 % (21.0-51.0); MEAN CORPUSCULAR HEMOGLOBIN 30.4 pg (27.0-34.0); MEAN CORPUSCULAR HGB CONC 34.1 g/dL (33.0-35.0); MEAN CORPUSCULAR VOLUME 89.1 fL (80.0-100.0); MEAN PLATELET VOLUME 9.9 fL (7.4-11.0); MONOCYTES # (AUTO) 0.8 x10^3/uL (0.3-0.8); MONOCYTES % (AUTO) 6.7 % (0.0-13.0); NEUTROPHILS # (AUTO) 6.3 x10^3/uL (2.2-4.8); NEUTROPHILS % (AUTO) 54.8 % (42.0-75.0); PLATELET COUNT 263 X10^3/uL (150.0-450.0); RED BLOOD COUNT 5.07 X10^6/uL (3.5-5.4); RED CELL DISTRIBUTION WIDTH 14.8 % (11.6-16.5); WHITE BLOOD COUNT 11.4 X10^3/uL (3.6-10.0)
--- NOTE | 2016-11-30 10:38 | RAD ---
History: Shortness of breath Study: Chest two views Findings: PA and left lateral projections of the chest are compared to the study of of August 27 7. Heart and mediastinal structures are unchanged in appearance. The right subclavian Port-A-Cath re luisana in place. There is mild overexpansion of the lungs with slight accentuation of the interstitia l markings unchanged. There are mild to moderate spondylitic changes of the thoracic spine. Impression: No change in the appearance of the chest and no evidence of acute disease. Reported By:
[2016-11-30 10:42] LABS: BLOOD UREA NITROGEN 18 mg/dL (7-18); CALCIUM 8.7 mg/dL (8.5-10.1); CARBON DIOXIDE 22.8 mmol/L (21-32); CHLORIDE 102 mmol/L (98-107); COR NA(FOR HYPERGLY) 141 mmol/L (136-145); GLUCOSE 274 mg/dL (65-99); SODIUM 137 mmol/L (136-145); TROPONIN I < 0.02 ng/mL (0-1.5); eGFR BLACK RACES > 60 (>60); eGFR NON BLACK RACES > 60 (>60)
[2016-11-30 10:43] VITALS: BP 175/81
[2016-11-30 10:46] LABS: ALANINE AMINOTRANSFERASE 16 Units/L (12-78); ALBUMIN 3.7 g/dL (3.4-5.0); ALKALINE PHOSPHATASE 111 Units/L (46-116); ASPARTATE AMINO TRANSFERASE 10 Units/L (15-37); CKMB % 2.8 % (<4); CREATINE KINASE 36 Units/L (26-192); CREATINE KINASE MB < 1.0 ng/mL (0-4.0); TOTAL PROTEIN 7.3 g/dL (6.4-8.2)
[2016-11-30] MEDS ORDERED: ROCEPHIN VIAL 1 GM IM ONE (11:31)
[2016-11-30] MEDS ORDERED: ROCEPHIN VIAL 1 GM 1 GM in NS 50 ML IV + SPIKE MINIBAG* 50 ML IV ONE (11:34)
[2016-11-30] MEDS ORDERED: ROCEPHIN 1 GM IV PREMIX * OUT OF STOCK 50 ML IV ONE (11:34)
== END 2016-11-30 11:51 | disposition home or self-care (01) ==
LOC: ER 09:48
DX: J44.1 Chronic obstructive pulmonary disease with (acute) exacerbation (principal); J01.01 Acute recurrent maxillary sinusitis; Z72.0 Tobacco use
CPT/HCPCS: 36415; 36600; 71020; 80053; 82550; 82553; 82803; 84484; 85025; 93005; 93010; 94640; 96365; 96374; 96375; 99283; A4222; J0696; J2930; J7620

== ENCOUNTER → 2016-12-02 | Outpatient (CLI) | payer OTHER, MEDICAID ==
[2016-11-30 10:43] VITALS: BP 175/81
== END ==
LOC: RAD 13:25
PROVIDERS: ATTEND Specialist
DX: M75.02 Adhesive capsulitis of left shoulder (principal)
CPT/HCPCS: 73030

== ENCOUNTER → 2016-12-23 | Outpatient (CLI) | payer OTHER, MEDICAID ==
[2016-12-03 09:59] VITALS: BP 151/87
== END ==
LOC: RT 09:15
PROVIDERS: ATTEND Obstetrics & Gynecology Obstetrics
DX: M25.512 Pain in left shoulder (principal)
CPT/HCPCS: 95909

== ENCOUNTER → 2017-01-27 | Outpatient (CLI) | payer OTHER, MEDICAID ==
[2016-12-03 09:59] VITALS: BP 151/87
[2017-01-27 12:29] LABS: BASOPHILS # (AUTO) 0.1 X10^3/uL (0.0-0.1); BASOPHILS % (AUTO) 1.5 % (0.2-1.0); EOSINOPHILS # (AUTO) 0.2 x10^3/uL (0.0-0.2); EOSINOPHILS % (AUTO) 2.2 % (0.9-2.9); HEMATOCRIT 45.5 % (36.0-47.0); HEMOGLOBIN 15.5 g/dL (12.0-16.0); LYMPHOCYTES # (AUTO) 2.7 X10^3/uL (1.3-2.9); LYMPHOCYTES % (AUTO) 33.8 % (21.0-51.0); MEAN CORPUSCULAR HEMOGLOBIN 30.6 pg (27.0-34.0); MEAN CORPUSCULAR HGB CONC 34.1 g/dL (33.0-35.0); MEAN CORPUSCULAR VOLUME 89.9 fL (80.0-100.0); MEAN PLATELET VOLUME 9.9 fL (7.4-11.0); MONOCYTES # (AUTO) 0.6 x10^3/uL (0.3-0.8); MONOCYTES % (AUTO) 7.5 % (0.0-13.0); NEUTROPHILS # (AUTO) 4.4 x10^3/uL (2.2-4.8); PLATELET COUNT 243 X10^3/uL (150.0-450.0); RED BLOOD COUNT 5.06 X10^6/uL (3.5-5.4); RED CELL DISTRIBUTION WIDTH 14.6 % (11.6-16.5)
[2017-01-27 12:38] LABS: ALANINE AMINOTRANSFERASE 15 Units/L (12-78); ALBUMIN 3.5 g/dL (3.4-5.0); ALKALINE PHOSPHATASE 99 Units/L (46-116); ASPARTATE AMINO TRANSFERASE 7 Units/L (15-37); BLOOD UREA NITROGEN 22 mg/dL (7-18); CALCIUM 8.9 mg/dL (8.5-10.1); CARBON DIOXIDE 32.2 mmol/L (21-32); CHLORIDE 102 mmol/L (98-107); COR NA(FOR HYPERGLY) 143 mmol/L (136-145); CREATININE 1.17 mg/dL (0.55-1.02); SODIUM 138 mmol/L (136-145); eGFR BLACK RACES > 60 (>60); eGFR NON BLACK RACES 50 (>60)
[2017-01-27 13:09] LABS: ERYTHROCYTE SEDIMENTATION RATE 9 MM/HOUR (0-20)
== END ==
LOC: LAB 11:44
PROVIDERS: ATTEND Orthopaedic Surgery
DX: M25.512 Pain in left shoulder (principal); R94.4 Abnormal results of kidney function studies; E11.65 Type 2 diabetes mellitus with hyperglycemia; R79.82 Elevated C-reactive protein (CRP); Z79.899 Other long term (current) drug therapy
CPT/HCPCS: 36415; 80053; 85025; 85652; 86140

== ENCOUNTER → 2017-02-10 | Outpatient (CLI) | payer OTHER, MEDICAID ==
[2016-12-03 09:59] VITALS: BP 151/87
--- NOTE | 2017-02-10 11:25 | MRI ---
MRI the left shoulder without contrast indication: Left shoulder pain. Technique: Multiplanar, multi sequence imaging of the left shoulder without IV contrast administratio n. Findings: There is high-grade, near complete, bursal and articular surface tearing of the entire dist al supraspinatus tendon, there appears to be a few residual intact fibers with moderate tendinopathy. There is no retraction of the supraspinatus tendon. Mild supraspinatus muscle belly atrophy. The inf raspinatus tendon demonstrates mild tendinopathy and undersurface fraying without intermediate or hig h-grade tear. No muscle belly atrophy. There is high-grade partial thickness tearing of the superior subscapularis tendon. No muscle belly atrophy. The intra-articular long head biceps tendon is medially subluxed with tendinopathy of the intra-artic ular biceps tendon however there is no full thickness tear or retraction. The superior labrum demonst rates intermediate signal consistent with chronic tearing at the superior labrum/biceps labral anchor . Additionally there is truncation and intermediate signal within the posterior labrum on axial image 12 consistent with chronic tear. There is irregularity of the anterior inferior labrum with increase d fluid extending into a labral tear seen on axial image 13 as well. Glenohumeral joint demonstrates moderate chondral thinning without subchondral marrow edema or cystic change. There is a large volume of fluid within the subacromial, subdeltoid bursa. There is also moderate edema within the AC joint with fluid extending from the subacromial, subdeltoid bursa into the AC joint. There is debris presen t within the subacromial, subdeltoid bursa. The inferior glenohumeral ligament is intact. Impression: 1.High-grade, near complete, bursal and articular surface tearing of the entire supraspinatus infrasp inatus tendon with mild muscle belly atrophy. No full thickness tear or retraction of the supraspinat us tendon. 2. Tendinopathy with low-grade articular surface fraying of the infraspinatus tendon. No muscle belly atrophy. 3. High-grade partial thickness tearing of the superior subscapularis tendon with associated medial s ubluxation of the intracanicular long head biceps tendon. The biceps tendon demonstrates moderate ten dinopathy without tear or retraction. 4. A 360, circumferential labral tear, there is mild displacement of the anterior inferior labral te ar. 5. Moderate diffuse thinning of the glenohumeral articular cartilage. 6. Large subacromial, subdeltoid bursal fluid with heterogeneous signal consistent with bursitis. The fluid extends into the AC joint with osteolysis of distal clavicle potentially secondary to previous trauma or surgical resection in the appropriate clinical setting. Reported By:
== END | disposition home or self-care (01) ==
LOC: RAD 08:47
PROVIDERS: ATTEND Orthopaedic Surgery
DX: M25.512 Pain in left shoulder (principal); S46.812A Strain of other muscles, fascia and tendons at shoulder and upper arm level, left arm, initial encounter; X58.XXXA Exposure to other specified factors, initial encounter
CPT/HCPCS: 73221

== ENCOUNTER → 2017-02-24 | Outpatient (CLI) | payer OTHER, MEDICAID ==
[2016-12-03 09:59] VITALS: BP 151/87
[2017-02-24 10:07] LABS: BASOPHILS # (AUTO) 0.1 X10^3/uL (0.0-0.1); BASOPHILS % (AUTO) 1.4 % (0.2-1.0); EOSINOPHILS # (AUTO) 0.2 x10^3/uL (0.0-0.2); EOSINOPHILS % (AUTO) 2.1 % (0.9-2.9); HEMATOCRIT 46.5 % (36.0-47.0); HEMOGLOBIN 15.7 g/dL (12.0-16.0); LYMPHOCYTES # (AUTO) 2.4 X10^3/uL (1.3-2.9); LYMPHOCYTES % (AUTO) 30.1 % (21.0-51.0); MEAN CORPUSCULAR HEMOGLOBIN 30.3 pg (27.0-34.0); MEAN CORPUSCULAR HGB CONC 33.8 g/dL (33.0-35.0); MEAN CORPUSCULAR VOLUME 89.5 fL (80.0-100.0); MEAN PLATELET VOLUME 9.4 fL (7.4-11.0); MONOCYTES # (AUTO) 0.6 x10^3/uL (0.3-0.8); NEUTROPHILS # (AUTO) 4.8 x10^3/uL (2.2-4.8); NEUTROPHILS % (AUTO) 59.4 % (42.0-75.0); PLATELET COUNT 245 X10^3/uL (150.0-450.0); RED BLOOD COUNT 5.19 X10^6/uL (3.5-5.4); RED CELL DISTRIBUTION WIDTH 14.8 % (11.6-16.5)
[2017-02-24 10:32] LABS: ALANINE AMINOTRANSFERASE 22 Units/L (12-78); ALBUMIN 3.6 g/dL (3.4-5.0); ALKALINE PHOSPHATASE 95 Units/L (46-116); ASPARTATE AMINO TRANSFERASE 15 Units/L (15-37); BLOOD UREA NITROGEN 19 mg/dL (7-18); CALCIUM 8.9 mg/dL (8.5-10.1); CARBON DIOXIDE 25.1 mmol/L (21-32); CHLORIDE 102 mmol/L (98-107); COR NA(FOR HYPERGLY) 140 mmol/L (136-145); CREATININE 0.85 mg/dL (0.55-1.02); SODIUM 137 mmol/L (136-145); TOTAL PROTEIN 7.1 g/dL (6.4-8.2); eGFR BLACK RACES > 60 (>60); eGFR NON BLACK RACES > 60 (>60)
[2017-02-24 11:06] LABS: ERYTHROCYTE SEDIMENTATION RATE 4 MM/HOUR (0-20)
== END ==
LOC: LAB 09:10
PROVIDERS: ATTEND Orthopaedic Surgery
DX: Z01.818 Encounter for other preprocedural examination (principal); Z01.812 Encounter for preprocedural laboratory examination; M75.50 Bursitis of unspecified shoulder
CPT/HCPCS: 36415; 80053; 85025; 85652; 86140

== ENCOUNTER 2017-07-03 08:52 | Emergency (ER) | payer OTHER, MEDICAID ==
[2017-07-03 09:00] VITALS: BP 114/75; BMI 32.1
--- NOTE | 2017-07-03 09:11 | DR.GENAD ---
HPI - PCP Primary Care Physician: peñaloza - Complaint/Symptoms Chief Complaint Doctors Comments: Patient presents with complaint of vomting and diarreha of one days duration. She denies fever or dysuria. 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 - Family History History of Family Medical Conditions: Yes Family Medical History: Diabetes Mellitus, Hypertension - Social History Does patient currently use any type of tobacco product: No Have you used tobacco products in the last 12 months: No Type of Tobacco Use: None Does any household member use tobacco: No Alcohol Use: None Do you use any recreational Drugs:: No Lives With: Alone Lives Where: Home - infectious screening In the last 2 months have you had wt loss of >10#?: NO Have you had fever, night sweats or hemotysis?: No Have you traveled outside the country in the last 6 months?: No Isolation: Standard ROS - Review of Systems Eyes: No Symptoms Reported ENTM: No Symptoms Reported Respiratoy: No Symptoms Reported Cardiovascular: No Symptoms Reported Gastrointestinal/Abdominal: No Symptoms Reported Genitourinary: No Symptoms Reported Neurological: No Symptoms Reported Musculoskeletal: No Symptoms Reported Integumentary: No Symptoms Reported Hematologic/Lymphatic: No Symptoms Reported Endocrine: No Symptoms Reported Psychiatric: No Symptoms Reported All Other Systems: Reviewed and Negative PE - Vital Signs Vitals: Temperature 97.9 F Pulse Rate 100 Respiratory Rate 18 Blood Pressure [Right Arm] 175/81 Blood Pressure [Left Arm] 137/60 Blood Pressure 114/75 O2 Sat by Pulse Oximetry 96 - General Limitations: No Limitations General Appearance: Alert, In No Apparent Distress - Head Head Exam: Normal Inspection, Atraumatic - Eyes Eye exam: Normal Appearance, PERRL, EOMI - ENT ENT Exam: Normal Exam External Ear Exam: Normal External Inspection TM/Canal Exam: Bilateral Normal Nose Exam: Normal Nose Exam Mouth Exam: Normal Inspection Throat Exam: Normal Inspection - Neck Neck Exam: Normal Inspection, Full ROM - Chest Chest Inspection: Normal Inspection, Symmetric Chest Wall Rise - Respiratory Respiratory Exam: Normal Lung Sounds Bilat Respiratory Exam: Bilateral Clear to Auscultation - Cardiovascular Cardiovascular Exam: Regular Rate, Tachycardia - Abdominal Exam Abdominal Exam: Normal Inspection Abdominal Tenderness: negative: RUQ, RLQ, LUQ, LLQ, Epigastrium, Suprapubic, Diffuse, Mild, Moderate, Severe, Other - Extremities Extremities Exam: Normal Inspection. negative: Normal Capillary Refill ( prolonged) - Back Back Exam: Normal Inspection - Neurologic Neurological Exam: Alert, Oriented X3, CN II-XII Intact - Psychiatric Psychiatric Exam: Normal Affect - Skin Skin Exam: Warm ROR - Labs Reviewed Result Diagrams: 07/03/17 09:22 07/03/17 09:22 Laboratory: WBC 12.2 X10^3/uL (3.6-10.0) H 07/03/17: RBC 5.16 X10^6/uL (3.5-5.4) 07/03/17 09: Hgb 15.7 g/dL (12.0-16.0) 07/03/17 09: Hct 46.7 % (36.0-47.0) 07/03/17 09: MCV 90.5 fL (80.0-100.0) 07/03/17 09: MCH 30.4 pg (27.0-34.0) 07/03/17 09: MCHC 33.6 g/dL (33.0-35.0) 07/03/17 09: RDW 14.6 % (11.6-16.5) 07/03/17 09: Plt Count 251 X10^3/uL (150.0-450.0) 07/03/17: MPV 9.4 fL (7.4-11.0) 07/03/17 09: Neut % 81.9 % (42.0-75.0) H 07/03/17: Lymph % 9.5 % (21.0-51.0) L 07/03/17: [place] % 6.5 % (0.0-13.0) 07/03/17 09: Eos % 1.3 % (0.9-2.9) 07/03/17 09: Baso % 0.8 % (0.2-1.0) 07/03/17: Neut # 10.0 x10^3/uL (2.2-4.8) H 07/03/17 09:22 Lymph # 1.2 X10^3/uL (1.3-2.9) L 07/03/17 09:22 [place] # 0.8 x10^3/uL (0.3-0.8) 07/03/17 09:22 Eos # 0.2 x10^3/uL (0.0-0.2) 07/03/17 09:22 Baso # 0.1 X10^3/uL (0.0-0.1) 07/03/17 09:22 Absolute Nucleated RBC 0.0 /100WBC 07/03/17 09:22 Sodium 140 mmol/L (136-145) 07/03/17 09:22 Corrected Sodium 142 mmol/L (136-145) 07/03/17 09:22 Potassium 4.2 mmol/L (3.5-5.1) 07/03/17 09:22 Chloride 105 mmol/L (98-107) 07/03/17 09:22 Carbon Dioxide 23.7 mmol/L (21-32) 07/03/17 09:22 BUN 25 mg/dL (7-18) H 07/03/17 09:22 Creatinine 0.75 mg/dL (0.55-1.02) 07/03/17 09:22 Est GFR (MDRD) Af Amer > 60 (>60) 07/03/17 09:22 Est GFR (MDRD) Non-Af > 60 (>60) 07/03/17 09:22 Glucose 180 mg/dL (65-99) H 07/03/17 09:22 Calcium 8.7 mg/dL (8.5-10.1) 07/03/17 09:22 Corrected Calcium TNP 07/03/17 09:22 Total Bilirubin 0.40 mg/dL (0.2-1.0) 07/03/17 09:22 AST 12 Units/L (15-37) L 07/03/17 09:22 ALT 18 Units/L (12-78) 07/03/17 09:22 Alkaline Phosphatase 91 Units/L (46-116) 07/03/17 09:22 C-Reactive Protein 2.70 mg/L (0-3.0) 07/03/17 09: Total Protein 7.1 g/dL (6.4-8.2) 07/03/17: Albumin 3.5 g/dL (3.4-5.0) 07/03/17: Globulin 3.6 g/dL (2.5-4.5) 07/03/17: Albumin/Globulin Ratio 1.0 Ratio (1.1-2.1) L 07/03/17: Specimen Type Random urine 07/03/17: Urine Color Yellow (YELLOW) 07/03/17: Urine Appearance Clear (CLEAR) 07/03/17: Urine pH 5.0 (5.0 - 8.0) 07/03/17: Ur Specific [place] 1.020 (1.000-1.030) 07/03/17 09: Urine Protein 1+ (NEGATIVE) 07/03/17 09: Urine Glucose (UA) 4+ (NEGATIVE) 07/03/17: Urine Ketones 3+ (NEGATIVE) 07/03/17 09: Urine Occult Blood 3+ (NEGATIVE) 07/03/17 09: Urine Nitrite Negative (NEGATIVE) 07/03/17 09: Urine Bilirubin Negative (NEGATIVE) 07/03/17 09: Urine Urobilinogen Normal (NORMAL) 07/03/17 09:26 Ur Leukocyte Esterase Negative (NEGATIVE) 07/03/17 09:26 Urine RBC 02 - 05 /HPF (NEGATIVE) 07/03/17 09:26 Urine WBC 02 - 05 /HPF (NEGATIVE) 07/03/17 09:26 Ur Squamous Epith Cells Few /HPF (NEGATIVE) 07/03/17 09:26 Amorphous Sediment Trace /HPF (NEGATIVE) 07/03/17 09:26 Urine Bacteria Trace /HPF (NEGATIVE) 07/03/17 09: Ur Culture Indicated? No/not indicated 07/03/17 09: H. pylori IgG Antibody Negative (NEGATIVE) 07/03/17: S. pyogenes (TEM-PCR) Not detected (NOT DETECT) 07/03/17: - Diagnosis Discharge Problem: Viral illness - Discharge Plan Condition: Stable - Follow ups/Referrals Follow ups/Referrals: TEMO PEÑALOZA [Primary Care Provider] - 3 days - Instructions
[2017-07-03] MEDS ORDERED: NS 1000 ML 1,000 ML IV ONE (09:13)
[2017-07-03] MEDS ORDERED: PROTONIX INJ 40 MG VIAL IVP ONE (09:14)
[2017-07-03] MEDS ORDERED: ZOFRAN INJ 4 MG VIAL IVP ONE (09:15)
[2017-07-03] MEDS ORDERED: NS 1000 ML 1,000 ML ONE (09:18)
[2017-07-03] MEDS ORDERED: PROTONIX INJ 40 MG VIAL ONE (09:18)
[2017-07-03] MEDS ORDERED: ZOFRAN INJ 4 MG VIAL ONE (09:18)
[2017-07-03 09:28] LABS: BASOPHILS # (AUTO) 0.1 X10^3/uL (0.0-0.1); BASOPHILS % (AUTO) 0.8 % (0.2-1.0); EOSINOPHILS # (AUTO) 0.2 x10^3/uL (0.0-0.2); EOSINOPHILS % (AUTO) 1.3 % (0.9-2.9); HEMATOCRIT 46.7 % (36.0-47.0); HEMOGLOBIN 15.7 g/dL (12.0-16.0); LYMPHOCYTES # (AUTO) 1.2 X10^3/uL (1.3-2.9); LYMPHOCYTES % (AUTO) 9.5 % (21.0-51.0); MEAN CORPUSCULAR HEMOGLOBIN 30.4 pg (27.0-34.0); MEAN CORPUSCULAR HGB CONC 33.6 g/dL (33.0-35.0); MEAN CORPUSCULAR VOLUME 90.5 fL (80.0-100.0); MEAN PLATELET VOLUME 9.4 fL (7.4-11.0); MONOCYTES # (AUTO) 0.8 x10^3/uL (0.3-0.8); MONOCYTES % (AUTO) 6.5 % (0.0-13.0); NEUTROPHILS % (AUTO) 81.9 % (42.0-75.0); PLATELET COUNT 251 X10^3/uL (150.0-450.0); RED BLOOD COUNT 5.16 X10^6/uL (3.5-5.4); RED CELL DISTRIBUTION WIDTH 14.6 % (11.6-16.5); WHITE BLOOD COUNT 12.2 X10^3/uL (3.6-10.0)
[2017-07-03 09:45] LABS: ALANINE AMINOTRANSFERASE 18 Units/L (12-78); ALBUMIN 3.5 g/dL (3.4-5.0); ALKALINE PHOSPHATASE 91 Units/L (46-116); ASPARTATE AMINO TRANSFERASE 12 Units/L (15-37); BLOOD UREA NITROGEN 25 mg/dL (7-18); CALCIUM 8.7 mg/dL (8.5-10.1); CARBON DIOXIDE 23.7 mmol/L (21-32); CHLORIDE 105 mmol/L (98-107); COR NA(FOR HYPERGLY) 142 mmol/L (136-145); CREATININE 0.75 mg/dL (0.55-1.02); SODIUM 140 mmol/L (136-145); TOTAL PROTEIN 7.1 g/dL (6.4-8.2); eGFR BLACK RACES > 60 (>60); eGFR NON BLACK RACES > 60 (>60)
[2017-07-03 09:58] LABS: BILIRUBIN,URINE NEGATIVE (NEGATIVE); BLOOD/HEMOGLOBIN,URINE 3+ (NEGATIVE); GLUCOSE, URINE 4+ (NEGATIVE); KETONES,URINE 3+ (NEGATIVE); LEUKOCYTE ESTERASE ,URINE NEGATIVE (NEGATIVE); NITRITES,URINE NEGATIVE (NEGATIVE); PROTEIN,URINE 1+ (NEGATIVE); UROBILINOGEN,URINE NORMAL (NORMAL)
[2017-07-03 10:10] LABS: APPEARANCE,URINE CLEAR (CLEAR); COLOR,URINE YELLOW (YELLOW)
[2017-07-03 10:22] LABS: AMORPHOUS SEDIMENT,UR TRACE /HPF (NEGATIVE); BACTERIA,URINE TRACE /HPF (NEGATIVE); SQUAMOUS EPITHELIAL CELL,UR FEW /HPF (NEGATIVE)
[2017-07-03] MEDS ORDERED: BENTYL CAP 10 MG PO ONE ×2 (10:34)
== END 2017-07-03 10:45 | disposition home or self-care (01) ==
LOC: ER 09:03
DX: R11.10 Vomiting, unspecified (principal); B97.89 Other viral agents as the cause of diseases classified elsewhere
CPT/HCPCS: 36415; 36591; 80053; 81001; 85025; 86140; 86677; 87651; 96365; 96374; 96375; 99282; 99283; C9113; J2405

== ENCOUNTER → 2017-07-05 | Outpatient (CLI) | payer OTHER, MEDICAID ==
[2017-07-03 09:00] VITALS: BP 114/75
--- NOTE | 2017-07-05 12:43 | RAD ---
Indication: Pain Exam: Acute abdominal series Comparison: 08/26/2016 Findings: The heart is normal. The pulmonary vessels are normal. There is a right Port-A-Cath in plac e which is unchanged. The lungs are mildly hyperinflated but clear. Supine and upright views of the abdomen were obtained which shows a nonspecific gas pattern. No renal stones are seen. Surgical clips are seen along the right upper quadrant. There is no free air. The b ones are intact. Impression: Stable chest. Nonspecific abdominal series. Reported By:
== END ==
LOC: RAD 10:50
PROVIDERS: ATTEND Obstetrics & Gynecology Obstetrics
DX: R10.12 Left upper quadrant pain (principal)
CPT/HCPCS: 74022

== ENCOUNTER 2017-07-06 01:35 | Emergency (ER) | payer OTHER, MEDICAID ==
[2017-07-06 01:52] VITALS: BP 118/55; BMI 32.1
--- NOTE | 2017-07-06 02:35 | DR.GENAD ---
HPI - PCP Primary Care Physician: JH - Complaint/Symptoms Chief Complaint Doctors Comments: Patient presents with complaint of constipation. Chief Complaint:: "I WAS HERE TUESDAY SEEN , BUT WHAT HE DID HAS NOT HELPED. I SEEN TUESDAY, HE SENT ME HERE TO HAVE XRAYS. THE XRAYS SHOWED I AM IMPACTED. I KEEP THROWING UP AND I AM HURTING. 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 - Family History History of Family Medical Conditions: Yes Family Medical History: Diabetes Mellitus, Hypertension - Social History Does patient currently use any type of tobacco product: No Have you used tobacco products in the last 12 months: No Type of Tobacco Use: None Does any household member use tobacco: No Alcohol Use: None Do you use any recreational Drugs:: No Lives With: Alone Lives Where: Home - infectious screening Have you traveled outside the country in the last 6 months?: No Isolation: Standard ROS - Review of Systems Eyes: No Symptoms Reported ENTM: No Symptoms Reported Respiratoy: No Symptoms Reported Cardiovascular: No Symptoms Reported Gastrointestinal/Abdominal: No Symptoms Reported Genitourinary: No Symptoms Reported Neurological: No Symptoms Reported Musculoskeletal: No Symptoms Reported Integumentary: No Symptoms Reported Hematologic/Lymphatic: No Symptoms Reported Endocrine: No Symptoms Reported Psychiatric: No Symptoms Reported All Other Systems: Reviewed and Negative PE - Vital Signs Vitals: Temperature 96.3 F Pulse Rate 100 Respiratory Rate 18 Blood Pressure [Right Arm] 175/81 Blood Pressure [Left Arm] 137/60 Blood Pressure 118/55 O2 Sat by Pulse Oximetry 95 - General Limitations: No Limitations General Appearance: Alert, In No Apparent Distress - Head Head Exam: Normal Inspection, Atraumatic - Eyes Eye exam: Normal Appearance, PERRL, EOMI - ENT ENT Exam: Normal Exam External Ear Exam: Normal External Inspection TM/Canal Exam: Bilateral Normal Nose Exam: Normal Nose Exam Mouth Exam: Normal Inspection Throat Exam: Normal Inspection - Neck Neck Exam: Normal Inspection, Full ROM - Chest Chest Inspection: Normal Inspection - Respiratory Respiratory Exam: Normal Lung Sounds Bilat Respiratory Exam: Bilateral Clear to Auscultation - Cardiovascular Cardiovascular Exam: Regular Rate, Normal Rhythm - Abdominal Exam Abdominal Exam: Normal Inspection Abdominal Tenderness: negative: RUQ, RLQ, LUQ, LLQ, Epigastrium, Suprapubic, Diffuse, Mild, Moderate, Severe, Other - Extremities Extremities Exam: Normal Inspection, Full ROM - Back Back Exam: Normal Inspection, Full ROM - Neurologic Neurological Exam: Alert, Oriented X3, CN II-XII Intact - Psychiatric Psychiatric Exam: Normal Affect - Skin Skin Exam: Warm, Dry, Intact Course - Treatment Treatment: Patient refused rectal inspection/exam ROR - XRAY XRAY Interpreted by: Radiologist (Ct: Abd/pel: The gallbladder is absent. The liver, spleen, adrenal glands, pancreas, stomach and small bowel are normal. Colonic diverticulosis noted without acute inflammatory change. No acute colonic abnormalities seen. Appendix is not convincingly demonstrated. Vascular plaque noted. The kindyes show no hydroureteronephrosis or stone. No acute abnormality to explain the patien's pain. Diverticulosis and other findings as discussed..) - Diagnosis Discharge Problem: Abdominal pain Qualifiers: Abdominal location: generalized Qualified Code(s): R10.84 - Generalized abdominal pain Diverticulosis Qualifiers: Diverticulosis site: diverticulosis of large intestine Diverticulosis bleeding : diverticulosis without bleeding Qualified Code(s): K57.30 - Diverticulosis of large intestine without perforation or abscess without bleeding - Discharge Plan Condition: Stable - Follow ups/Referrals Follow ups/Referrals: TEMO PEÑALOZA [Primary Care Provider] - 3 days - Instructions
[2017-07-06 03:40] LABS: BILIRUBIN,URINE NEGATIVE (NEGATIVE); BLOOD/HEMOGLOBIN,URINE 3+ (NEGATIVE); GLUCOSE, URINE 3+ (NEGATIVE); KETONES,URINE 3+ (NEGATIVE); LEUKOCYTE ESTERASE ,URINE 1+ (NEGATIVE); NITRITES,URINE NEGATIVE (NEGATIVE); PROTEIN,URINE 1+ (NEGATIVE); UROBILINOGEN,URINE NORMAL (NORMAL)
--- NOTE | 2017-07-06 03:42 | CT ---
CT abdomen and pelvis without contrast Indication: Abdominal pain with nausea vomiting Comparison: 03/07/2014 Technique: Helical images through the abdomen and pelvis without contrast. Coronal and sagittal refor mats provided. Findings: Limited images through the lower chest show acute abnormality. Review of bone windows shows no destructive osseous lesion with spine degenerative change noted. Abdomen: The gallbladder is absent. The liver, spleen, adrenal glands, pancreas, stomach and small edilia wel are normal. Colonic diverticulosis noted without acute inflammatory change. No acute colonic abno rmalities seen. Appendix is not convincingly demonstrated. Vascular plaque noted. The kidneys show no hydroureteronephrosis or stone. Pelvis: The urinary bladder and rectum appear. Rectal prolapse suggested. Uterus and adnexa show no a cute abnormality. Impression: 1. No acute abnormality to explain the patient's pain. 2. Diverticulosis and other findings as above. Reported By:
[2017-07-06 03:49] LABS: APPEARANCE,URINE CLEAR (CLEAR); BACTERIA,URINE NEGATIVE /HPF (NEGATIVE); COLOR,URINE YELLOW (YELLOW); RBC,URINE RARE /HPF (NEGATIVE); SQUAMOUS EPITHELIAL CELL,UR RARE /HPF (NEGATIVE)
== END 2017-07-06 04:05 | disposition home or self-care (01) ==
LOC: ER 01:35
DX: K57.30 Diverticulosis of large intestine without perforation or abscess without bleeding (principal); R10.84 Generalized abdominal pain
CPT/HCPCS: 74176; 81001; 99282; 99283

== ENCOUNTER 2017-08-29 10:54 | Emergency (ER) | payer OTHER, MEDICAID ==
[2017-08-29 11:03] VITALS: BP 129/75; BMI 32.1
--- NOTE | 2017-08-29 11:37 | DR.GENAD ---
HPI - PCP Primary Care Physician: Dr. Peñaloza - Complaint/Symptoms Chief Complaint Doctors Comments: I agree with history as stated. Patient reports that the injections she is getting from her primary care physician are not working. She take oxycodone 10/325 up to four times times a day for her shoulder but it is not helping her hip. Chief Complaint:: pt c/o ongoing left hip pain for about a year. about a week ago the pain is shooting down left leg to the pain pt can't stand, sit or lay down without pain. Pt has not been able to sleep because of pain Self Treatment fo Chief Complaint: pt has had multiple injection last of which was this past tuesday. also takes hydrocodone without relief - Source History Provided: Patient - Mode of Arrival Mode of Arrival: Ambulatory - Timing Onset of Chief Complaint: 09/22/16 PMH - PMH Past Medical History: Yes Past Medical History: Arthritis, Asthma, COPD, Diabetes, Hypothyroidism Past Medical History Comment: neuropathy Past Surgical History: Yes Surgical History: Joint Replacement Past Surgical History Comment: right shoulder surgery, right TKA x 2, cyst removed from ovary, PAC placement - Family History History of Family Medical Conditions: No Family Medical History: Diabetes Mellitus, Cancer, Coronary Artery Disease, Hypertension - Social History Does patient currently use any type of tobacco product: No Have you used tobacco products in the last 12 months: No Type of Tobacco Use: None Does any household member use tobacco: No Alcohol Use: Occasionally Do you use any recreational Drugs:: No Lives With: Alone Lives Where: Home - infectious screening In the last 2 months have you had wt loss of >10#?: NO Have you had fever, night sweats or hemotysis?: No Have you traveled outside the country in the last 6 months?: No Isolation: Standard ROS - Review of Systems Eyes: No Symptoms Reported ENTM: No Symptoms Reported Respiratoy: No Symptoms Reported Cardiovascular: No Symptoms Reported Gastrointestinal/Abdominal: No Symptoms Reported Genitourinary: No Symptoms Reported Neurological: No Symptoms Reported Musculoskeletal: No Symptoms Reported Integumentary: No Symptoms Reported Hematologic/Lymphatic: No Symptoms Reported Endocrine: No Symptoms Reported Psychiatric: No Symptoms Reported All Other Systems: Reviewed and Negative PE - Vital Signs Vitals: Temperature 97.3 F Pulse Rate 92 Respiratory Rate 24 Blood Pressure [Right Arm] 175/81 Blood Pressure [Left Arm] 137/60 Blood Pressure 129/75 O2 Sat by Pulse Oximetry 96 - General General Appearance: Alert, In No Apparent Distress - Head Head Exam: Normal Inspection, Atraumatic - Eyes Eye exam: Normal Appearance, PERRL, EOMI - ENT ENT Exam: Normal Exam External Ear Exam: Normal External Inspection TM/Canal Exam: Bilateral Normal Nose Exam: Normal Nose Exam Mouth Exam: Normal Inspection Throat Exam: Normal Inspection - Neck Neck Exam: Normal Inspection - Chest Chest Inspection: Normal Inspection - Respiratory Respiratory Exam: Normal Lung Sounds Bilat Respiratory Exam: Bilateral Clear to Auscultation - Cardiovascular Cardiovascular Exam: Regular Rate, Normal Rhythm - Abdominal Exam Abdominal Exam: Normal Inspection Abdominal Tenderness: negative: RUQ, RLQ, LUQ, LLQ, Epigastrium, Suprapubic, Diffuse, Mild, Moderate, Severe, Other - Extremities Extremities Exam: Normal Inspection - Back Back Exam: Normal Inspection, Full ROM - Neurologic Neurological Exam: Alert, Oriented X3, CN II-XII Intact - Psychiatric Psychiatric Exam: Normal Affect - Skin Skin Exam: Warm, Dry, Intact - Diagnosis Discharge Problem: Osteoarthritis Qualifiers: Osteoarthritis location: hip Osteoarthritis type: unspecified Laterality: left Qualified Code(s): M16.12 - Unilateral primary osteoarthritis, left hip - Discharge Plan Condition: Stable - Follow ups/Referrals Follow ups/Referrals: TEMO PEÑALOZA [Primary Care Provider] - 3 days - Instructions
[2017-08-29] MEDS ORDERED: DILAUDID INJ IM ONE (11:52)
[2017-08-29] MEDS ORDERED: DILAUDID INJ ONE (12:01)
== END 2017-08-29 12:09 | disposition home or self-care (01) ==
LOC: ER 11:08
DX: M16.12 Unilateral primary osteoarthritis, left hip (principal)
CPT/HCPCS: 96372; 99282; J1170

== ENCOUNTER 2017-09-01 10:54 | Emergency (ER) | payer OTHER, MEDICAID ==
[2017-09-01 11:00] VITALS: BP 122/69; BMI 32.1
[2017-09-01] MEDS ORDERED: TORADOL 30 MG VIAL IM ONE (11:37)
--- NOTE | 2017-09-01 11:38 | DR.GENAD ---
HPI - PCP Primary Care Physician: peñaloza - Complaint/Symptoms Chief Complaint Doctors Comments: Relates left hip pain radiating to the groin. She was here with same on 07/29/17. She sates se has oste something (OA hip ?). She has not seen orthopedist yet. Chief Complaint:: Patient c/o pain to left hip that radiates down her leg. Patient stated she has bursitis and recd a shot on tuesday that has wore off. Patient states she can not deal with the pain anymore. - Nurses notes reviewed Nurses Notes Review: Yes - Source History Provided: Patient - Mode of Arrival Mode of Arrival: Ambulatory - Timing Onset of Chief Complaint: 08/14/17 PMH - PMH Past Medical History: Yes Past Medical History: Arthritis, Asthma, COPD, Diabetes, Hypothyroidism Past Surgical History: Yes Surgical History: Joint Replacement - Family History History of Family Medical Conditions: Yes Family Medical History: Diabetes Mellitus, Cancer, Coronary Artery Disease, Hypertension - Social History Does patient currently use any type of tobacco product: No Have you used tobacco products in the last 12 months: No Type of Tobacco Use: None Does any household member use tobacco: No Do you use any recreational Drugs:: No Lives Where: Home - infectious screening In the last 2 months have you had wt loss of >10#?: NO Have you had fever, night sweats or hemotysis?: No Have you traveled outside the country in the last 6 months?: No Isolation: Standard ROS - Review of Systems Constitutional: No Symptoms Reported Eyes: No Symptoms Reported ENTM: No Symptoms Reported Respiratoy: No Symptoms Reported Cardiovascular: No Symptoms Reported Musculoskeletal: Left (going to groin. ), Hip Integumentary: No Symptoms Reported Hematologic/Lymphatic: No Symptoms Reported Endocrine: No Symptoms Reported PE - Vital Signs Vitals: Temperature 97.6 F Pulse Rate 95 Respiratory Rate 18 Blood Pressure [Right Arm] 175/81 Blood Pressure [Left Arm] 137/60 Blood Pressure 122/69 O2 Sat by Pulse Oximetry 96 - General Limitations: No Limitations General Appearance: Alert, In No Apparent Distress - Head Head Exam: Normal Inspection - Eyes Eye exam: Normal Appearance - ENT ENT Exam: Normal Exam External Ear Exam: Normal External Inspection TM/Canal Exam: Bilateral Normal Nose Exam: Normal Nose Exam Mouth Exam: Normal Inspection Throat Exam: Normal Inspection - Cardiovascular Cardiovascular Exam: Regular Rate, Normal Rhythm, +S1, +S2 - Extremities Extremities Exam: Normal Inspection, Other (SLR is positive on the left and Fabere's test could not be tested there. She ambukates with a cane ) - Back Back Exam: Normal Inspection - Neurologic Neurological Exam: Alert, Oriented X3 - Psychiatric Psychiatric Exam: Normal Mood - Skin Skin Exam: Warm, Dry, Intact, Normal Color Course - Reevaluation 1st: Improved - Education/Counseling Education/Counseling: Patient, Family, Education, Counseling Educated On: Treatment, Diagnosis, Prognosis, Needs for Follow Up - Diagnosis Discharge Problem: Osteoarthritis of left hip - Discharge Plan Disposition: 01 HOME, SELF-CARE Condition: Stable - Follow ups/Referrals Follow ups/Referrals: TEMO PEÑALOZA [Primary Care Provider] - 3 days - Instructions
[2017-09-01] MEDS ORDERED: TORADOL 30 MG VIAL ONE (11:51)
== END 2017-09-01 12:10 | disposition home or self-care (01) ==
LOC: ER 11:07
DX: M16.12 Unilateral primary osteoarthritis, left hip (principal)
CPT/HCPCS: 96372; 99282; J1885

== ENCOUNTER → 2017-09-08 | Outpatient (CLI) | payer OTHER, MEDICAID ==
[2017-09-01 11:00] VITALS: BP 122/69
--- NOTE | 2017-09-08 09:38 | RAD ---
Examination: X-rays of the left hip. Clinical history: Left hip pain. Technique: An AP view of the pelvis and a frog-leg lateral view of the left hip were obtained. Comparison: None available. Findings: No acute fracture, dislocation, or destructive bony lesion is noted. No arthropathy is noted at the hips bilaterally. Mild degenerative changes are noted in the visualize d portion of the lumbar spine. A soft tissue opacity is seen overlying the pelvis, likely a partially filled bladder. Calcific densi ties are seen overlying the pelvis, likely due to phleboliths. Additional vascular calcifications als o seen overlying the pelvis and inguinal regions bilaterally. Impression: 1. No acute fracture or dislocation. Reported By:
== END ==
LOC: RAD 08:37
PROVIDERS: ATTEND Orthopaedic Surgery
DX: M25.552 Pain in left hip (principal)
CPT/HCPCS: 73501

== ENCOUNTER → 2017-09-22 | Outpatient (CLI) | payer OTHER, MEDICAID ==
[2017-09-01 11:00] VITALS: BP 122/69
--- NOTE | 2017-09-22 10:06 | RAD ---
HISTORY: Low back pain Study: Five views of the lumbar spine Comparison: None Findings: Images demonstrate 5 [id number]-hjelzte lumbar vertebral bodies. Slight dextrocurvature of the lumbar sp ine is noted. Images demonstrate an anterior compression deformity of the L3 vertebral body which was also demonstrated on previous CT of the abdomen and pelvis performed on July 06, 2017. Correlatio n with MRI may be helpful as clinically indicated. The remaining lumbar vertebral body heights are re latively maintained. Mild degenerate facet changes are seen throughout the lumbar spine. Multilevel i ntervertebral disc space narrowing is noted and is most pronounced at L1/L2 and L2/L3. Degenerate fac et changes are seen throughout the lumbar spine. Mild multilevel osteophytosis is also noted. IMPRESSION: Anterior compression deformity of the L3 vertebral body which was also demonstrated on previous CT of the abdomen pelvis performed on July 06, 2017. Correlation with MRI may be helpful as clinically indicated. Multilevel degenerative changes as noted above. Reported By:
== END ==
LOC: RAD 08:40
PROVIDERS: ATTEND Orthopaedic Surgery
DX: M54.17 Radiculopathy, lumbosacral region (principal)
CPT/HCPCS: 72110

== ENCOUNTER 2022-09-01 11:34 | Inpatient (IN) ==
[2022-09-01 11:47] VITALS: BMI 24.5
--- NOTE | 2022-09-01 11:49 | DR.EXTPAIN ---
HPI Time seen Time Seen by Provider: 09/01/22 11:49 PCP Primary Care Physician: TEMO PEÑALOZA Complaint/Symptoms Chief Complaint Doctor Comments: 67 y/o female brought in via EMS, after having a fall. Tripped on curb, was walking without her cane. Landed on the ground, on her R hip. C/o pain of the right hip, down the right leg. + worse with palpation, movement. Nothing makes it better. Denies head injury, neck pain, LOC. No recent illness. Is on chronic pain management. Chief Complaint:: PT STATES SHE WENT TO STEP OVER A CURVE WITHOUT HER ABUNDIO AND FELL ON THE RIGHT SIDE PT C/O OF RIGHT HIP/KNEE,LEG PAIN COVID-19 Coronavirus risk:travel/contact w/high risk person: No Has patient experienced Coronavirus symptoms: No Source History Provided: Patient Mode of arrival Mode of Arrival: Stretcher Timing Onset of Chief Complaint: 09/01/22 PMH PMH Past Medical History: Yes Past Medical History: COPD, Diabetes and GERD Past Surgical History: Yes Surgical History: Ortho Surgery Past Surgical History Comment: KNEE Family History History of Family Medical Conditions: Yes Family Medical History: Diabetes Mellitus and CA Social History Does patient currently use any type of tobacco product: Yes Have you used tobacco products in the last 12 months: Yes Type of Tobacco Use: Cigarettes Does any household member use tobacco: Yes Alcohol Use: None Do you use any recreational Drugs:: No Lives With: Family Lives Where: Home Travel Risk Coronavirus risk:travel/contact w/high risk person: No Has patient experienced Coronavirus symptoms: No Infectious screening In the last 2 months have you had wt loss of >10#?: NO Have you had fever, night sweats or hemotysis?: No Have you traveled outside the country in the last 6 months?: No Isolation: Standard ROS Review of Systems Constitutional: No Symptoms Reported Eyes: No Symptoms Reported ENTM: No Symptoms Reported Respiratoy: No Symptoms Reported Cardiovascular: No Symptoms Reported Gastrointestinal/Abdominal: No Symptoms Reported Genitourinary: No Symptoms Reported Neurological: No Symptoms Reported Musculoskeletal: See HPI Integumentary: No Symptoms Reported Psychiatric: No Symptoms Reported All Other Systems: Reviewed and Negative PE Vital Signs Vitals: Temperature 98.3 F Pulse Rate 81 Respiratory Rate 17 Blood Pressure [Right Arm] 115/68 Blood Pressure [Left Arm] 120/53 Blood Pressure 142/62 O2 Sat by Pulse Oximetry 96 General General Appearance: Alert and In No Apparent Distress Head Head Exam: Normal Inspection, Atraumatic and Normocephalic Eyes Eye exam: Normal Appearance ENT ENT Exam: Normal Oropharynx and Mucous Membranes Moist Neck Neck Exam: Normal Inspection Respiratory Respiratory Exam: Normal Lung Sounds Bilat; negative Accessory Muscle Use or Respiratory Distress Cardiovascular Cardiovascular Exam: Regular Rate, Normal Rhythm and Normal Heart Sounds Abdominal Exam Abdominal Exam: Normal Bowel Sounds and Soft; negative Tenderness Extremities Extremities Exam: negative Edema Lower Extremities Hip/Pelvis Exam: Tenderness (R lateral hip, + pain with limited ROM. Distal NV intact.) Neurological Neurological Exam: Alert, Oriented X3 and CN II-XII Intact; negative Motor Sensory Deficit Skin Skin Exam: Warm and Dry COURSE Treatment Treatment: Pt fell [employer], onto her R hip. Will x-ray the R hip/tib/fib regions. 1300 - x-rays without obvious fracture. Cannot absolutely r/o intertrochanteric fx, will pursue a CT of the R hip. 1330 - CT of R hip concerning for non displaced fracture of the R greater trochanter, andbase of the surgical neck, not displaced. Pt should have hip pinned, consulted with Dr Lal. He discussed with anesthesia, will plan on pinning tomorrow. Will admit to medicine, call put out to her MD, Dr Peñaloza. Dr Peñaloza accepts the admission. ROR Labs Reviewed Laboratory Results Reviewed?: Yes Result Diagrams: 09/01/22 14:15 09/01/22 14:15 Laboratory: WBC 8.0 X10^3/uL (3.6-10.0) 09/01/22 14:15 RBC 4.73 X10^6/uL (3.5-5.4) 09/01/22 14:15 Hgb 14.4 g/dL (12.0-16.0) 09/01/22 14:15 Hct 42.7 % (36.0-47.0) 09/01/22 14:15 MCV 90.1 fL (80.0-100.0) 09/01/22 14:15 MCH 30.4 pg (27.0-34.0) 09/01/22 14:15 MCHC 33.7 g/dL (33.0-35.0) 09/01/22 14:15 RDW 14.2 % (11.6-16.5) 09/01/22 14:15 Plt Count 242 X10^3/uL (150.0-450.0) 09/01/22 14:15 MPV 9.2 fL (7.4-11.0) 09/01/22 14:15 Neut % (Auto) 65.1 % (42.0-75.0) 09/01/22 14:15 Lymph % (Auto) 26.7 % (21.0-51.0) 09/01/22 14:15 [place] % (Auto) 5.5 % (0.0-13.0) 09/01/22 14:15 Eos % (Auto) 1.7 % (0.9-2.9) 09/01/22 14:15 Baso % (Auto) 1.0 % (0.2-1.0) 09/01/22 14:15 Neut # (Auto) 5.2 x10^3/uL (2.2-4.8) H 09/01/22 14:15 Lymph # (Auto) 2.1 X10^3/uL (1.3-2.9) 09/01/22 14:15 [place] # (Auto) 0.4 x10^3/uL (0.3-0.8) 09/01/22 14:15 Eos # (Auto) 0.1 x10^3/uL (0.0-0.2) 09/01/22 14:15 Baso # (Auto) 0.1 X10^3/uL (0.0-0.1) 09/01/22 14:15 Absolute Nucleated RBC 0.1 /100WBC 09/01/22 14:15 PT 12.8 SECONDS (11.8-14.3) 09/01/22 14:20 INR Target Range - 09/01/22 14:20 INR 0.99 (0.8-1.3) 09/01/22 14:20 APTT 73.4 SECONDS (22.9-36.5) H 09/01/22 14:20 PTT Comment - 09/01/22 14:20 Sodium 138 mmol/L (136-145) 09/01/22 14:15 Corrected Sodium 143 mmol/L (136-145) 09/01/22 14:15 Potassium 4.2 mmol/L (3.5-5.1) 09/01/22 14:15 Chloride 101 mmol/L (98-107) 09/01/22 14:15 Carbon Dioxide 29.5 mmol/L (21-32) 09/01/22 14:15 BUN 10 mg/dL (7-18) 09/01/22 14:15 Creatinine 0.69 mg/dL (0.55-1.02) 09/01/22 14:15 Est GFR (MDRD) Af Amer > 60 (>60) 09/01/22 14:15 Est GFR (MDRD) Non-Af > 60 (>60) 09/01/22 14:15 Glucose 325 mg/dL (65-99) H 09/01/22 14:15 Calcium 8.3 mg/dL (8.5-10.1) L 09/01/22 14:15 Corrected Calcium TNP 09/01/22 14:15 Total Bilirubin 0.40 mg/dL (0.2-1.0) 09/01/22 14:15 AST 22 Units/L (15-37) 09/01/22 14:15 ALT 19 Units/L (12-78) 09/01/22 14:15 Alkaline Phosphatase 100 Units/L (46-116) 09/01/22 14:15 Total Protein 6.6 g/dL (6.4-8.2) 09/01/22 14:15 Albumin 3.5 g/dL (3.4-5.0) 09/01/22 14:15 Globulin 3.1 g/dL (2.5-4.5) 09/01/22 14:15 Albumin/Globulin Ratio 1.1 Ratio (1.1-2.1) 09/01/22 14:15 Specimen Type Catherized urine 09/01/22 14:45 Urine Color Yellow (YELLOW) 09/01/22 14:45 Urine Appearance Clear (CLEAR) 09/01/22 14:45 Urine pH 5.0 (5.0 - 8.0) 09/01/22 14:45 Ur Specific [place] 1.015 (1.000-1.030) 09/01/22 14:45 Urine Protein 2+ (NEGATIVE) 09/01/22 14:45 Urine Glucose (UA) 4+ (NEGATIVE) 09/01/22 14:45 Urine Ketones 2+ (NEGATIVE) 09/01/22 14:45 Urine Blood Negative (NEGATIVE) 09/01/22 14:45 Urine Nitrite Negative (NEGATIVE) 09/01/22 14:45 Urine Bilirubin Negative (NEGATIVE) 09/01/22 14:45 Urine Urobilinogen Normal (NORMAL) 09/01/22 14:45 Ur Leukocyte Esterase 1+ (NEGATIVE) 09/01/22 14:45 Urine RBC None seen /HPF (0-3) 09/01/22 14:45 Urine WBC 0-2 /HPF (0-5) 09/01/22 14:45 Ur Squamous Epith Cells Rare /HPF (NEGATIVE) 09/01/22 14:45 Urine Bacteria Trace /HPF (NEGATIVE) 09/01/22 14:45 Ur Culture Indicated? No/not indicated 09/01/22 14:45 elevated glucose, labs otherwise acceptable. XRAY XRAY Interpreted by: Both Opioid Opioid Risk Tool Age (Ryan box if 16-45): No History of Preadolescent Sexual Abuse: No Total: 0 Total Score Risk Category: Low Risk Copyright: Luke WOMACK predicting aberrant behaviors Discharge Plan Diagnosis Discharge Problem: Fracture of femoral neck, right Discharge Plan Patient Disposition: ADMITTED INPATIENT Condition: Stable
[2022-09-01] MEDS ORDERED: DILAUDID INJ IVP ONE ×2 (12:00→14:22)
[2022-09-01] MEDS ORDERED: DILAUDID INJ ONE (12:07)
--- NOTE | 2022-09-01 14:06 | RAD ---
HISTORYpre op cxr for hip fx Relevant Clinical InformationSTUDYCHEST, 1 VIEWCOMPARISONChest radiograph dated June 27, 2022.FINDINGSThe trachea is midline. The cardiac silhouette is unremarkable. The lungs are clear without focal infiltrate or effusion. The bony thorax is unremarkable.There is an unchanged right-sided huseyin catheter CVL. Chronic interstitial changes are seen throughout the lung marie, likely from COPD/chronic bronchitis.IMPRESSIONNo acute cardiopulmonary findings or changes.Electronically signed by: MONICA FLOWERS III (Sep 01, 2022 14:03:49)
--- NOTE | 2022-09-01 14:13 | CT ---
HISTORYRight hip painSTUDYCT right hip without contrastTechnique: Axial noncontrast images with coronal and sagittal reformats. Dose reduction procedures were used with mA/kv adjusted for body size.COMPARISONPlain-film same dateFINDINGSBones are osteopenic. The visualized right side of the sacrum is intact as is the right SI joint. The visualized right pelvic bones are intact. The right hip joint is intact. No joint erosions are identified. No definite degenerative arthritic changes are identified. There is a cortical discontinuity along the superior aspect of the right greater trochanter best visualized on CT series 12, image 43 similarly there does appear to be a cortical discontinuity along the lateral aspect of the greater trochanter best visualized on CT series 12, image 41. These appear to represent cortical fractures of the greater trochanter. No hip joint effusion is identified. No periarticular soft tissue abnormality is identified with the exception of what may represent some soft tissue contusion in the subcutaneous fat overlying the greater trochanter.IMPRESSIONFindings suggestive of an incomplete fracture of the right greater trochanter with some overlying subcutaneous soft tissue contusion.Electronically signed by: JOSH RANDOLPH (Sep 01, 2022 14:12:25)
--- NOTE | 2022-09-01 14:24 | EKG ---
Test Reason : pre op Blood Pressure : */* mmHG Vent. Rate : 70 BPM Atrial Rate : 70 BPM P-R Int : 158 ms QRS Dur : 94 ms QT Int : 412 ms P-R-T Axes : 73 -34 80 degrees QTc Int : 444 ms Normal sinus rhythm Left axis deviation Abnormal ECG No previous ECGs available Confirmed by Shekhar Schumacher ([id number]) on 09/03/2022 10:28:31 AM Referred By: Confirmed By: Shekhar Schumacher
[2022-09-01 14:34] LABS: BASOPHILS # (AUTO) 0.1 X10^3/uL (0.0-0.1); EOSINOPHILS # (AUTO) 0.1 x10^3/uL (0.0-0.2); EOSINOPHILS % (AUTO) 1.7 % (0.9-2.9); HEMATOCRIT 42.7 % (36.0-47.0); HEMOGLOBIN 14.4 g/dL (12.0-16.0); LYMPHOCYTES # (AUTO) 2.1 X10^3/uL (1.3-2.9); LYMPHOCYTES % (AUTO) 26.7 % (21.0-51.0); MEAN CORPUSCULAR HEMOGLOBIN 30.4 pg (27.0-34.0); MEAN CORPUSCULAR HGB CONC 33.7 g/dL (33.0-35.0); MEAN CORPUSCULAR VOLUME 90.1 fL (80.0-100.0); MEAN PLATELET VOLUME 9.2 fL (7.4-11.0); MONOCYTES # (AUTO) 0.4 x10^3/uL (0.3-0.8); MONOCYTES % (AUTO) 5.5 % (0.0-13.0); NEUTROPHILS # (AUTO) 5.2 x10^3/uL (2.2-4.8); NEUTROPHILS % (AUTO) 65.1 % (42.0-75.0); RED BLOOD COUNT 4.73 X10^6/uL (3.5-5.4); RED CELL DISTRIBUTION WIDTH 14.2 % (11.6-16.5)
[2022-09-01 14:37] LABS: INR 0.99 (0.8-1.3)
[2022-09-01 14:45] LABS: ALANINE AMINOTRANSFERASE 19 Units/L (12-78); ALBUMIN 3.5 g/dL (3.4-5.0); ALKALINE PHOSPHATASE 100 Units/L (46-116); ASPARTATE AMINO TRANSFERASE 22 Units/L (15-37); BLOOD UREA NITROGEN 10 mg/dL (7-18); CALCIUM 8.3 mg/dL (8.5-10.1); CARBON DIOXIDE 29.5 mmol/L (21-32); CHLORIDE 101 mmol/L (98-107); COR NA(FOR HYPERGLY) 143 mmol/L (136-145); CREATININE 0.69 mg/dL (0.55-1.02); SODIUM 138 mmol/L (136-145); TOTAL PROTEIN 6.6 g/dL (6.4-8.2); eGFR NON BLACK RACES > 60 (>60)
[2022-09-01 14:57] LABS: BILIRUBIN,URINE NEGATIVE (NEGATIVE); BLOOD/HEMOGLOBIN,URINE NEGATIVE (NEGATIVE); GLUCOSE, URINE 4+ (NEGATIVE); KETONES,URINE 2+ (NEGATIVE); LEUKOCYTE ESTERASE ,URINE 1+ (NEGATIVE); NITRITES,URINE NEGATIVE (NEGATIVE); PROTEIN,URINE 2+ (NEGATIVE); UROBILINOGEN,URINE NORMAL (NORMAL)
[2022-09-01 15:00] LABS: APPEARANCE,URINE CLEAR (CLEAR); COLOR,URINE YELLOW (YELLOW)
[2022-09-01 15:01] LABS: BACTERIA,URINE TRACE /HPF (NEGATIVE); RBC,URINE NONE SEEN /HPF (0-3); SQUAMOUS EPITHELIAL CELL,UR RARE /HPF (NEGATIVE)
[2022-09-01] MEDS ORDERED: ZOFRAN INJ 4 MG VIAL IVP PRN (15:35)
[2022-09-01] MEDS: DILAUDID INJ IVP PRN ×2 (15:50→21:12)
[2022-09-01] MEDS: D5 1/2 NS 1,000 ML 1,000 ML IV SCH (15:51)
[2022-09-01] MEDS ORDERED: D5 1/2 NS 1,000 ML 1,000 ML IV ONE (15:52)
--- NOTE | 2022-09-01 16:15 | RAD ---
HISTORYFALL, PAIN DM, COPD, GERD, CATARACTS SX: ORTHO, PARTIAL HYST, RIGHT SIDE PORTSTUDYHIP-RIGHTCOMPARISONFI NDINGSA single frontal view of the pelvis demonstrates the pelvic ring to be intact. No evidence for acute cortical disruption or dislocation of the hip can be observed. Frog leg views of the hip fails to demonstrate evidence for fracture or significant joint abnormality.IMPRESSIONNegative examElectronically signed by: Antwon Og (Sep 01, 2022 16:14:03)
--- NOTE | 2022-09-01 16:16 | RAD ---
HISTORYFALL, PAIN DM, COPD, GERD, CATARACTS SX: ORTHO, PARTIAL HYST, RIGHT SIDE PORTSTUDYLOWER LEG, TIB/FIB RIGHTCOMPARISONFINDINGSAP and lateral radiographs of the lower extremity demonstrate no evidence for acute cortical disruption. Total right knee arthroplasty with extended intramedullary tibial component. No significant soft tissue abnormality can be identified.IMPRESSIONTotal right knee arthroplasty.No acute bony abnormalityElectronically signed by: Antwon Og (Sep 01, 2022 16:15:07)
[2022-09-01] MEDS ORDERED: PULMICORT NEB TX 0.5 MG NEB ONE (19:57)
[2022-09-01] MEDS ORDERED: XOPENEX 1.25 MG/3 ML NEBULE NEB ONE (19:57)
[2022-09-01] MEDS: NEURONTIN CAP 300 MG PO SCH (21:05)
[2022-09-01] MEDS: REQUIP PO SCH (21:05)
[2022-09-01] MEDS: BUSPAR PO SCH (21:06)
[2022-09-01] MEDS: GLUCOPHAGE XR 24-HR PO SCH (21:07)
[2022-09-01] MEDS: PULMICORT NEB TX 0.5 MG NEB SCH (21:20)
[2022-09-01] MEDS: XOPENEX 1.25 MG/3 ML NEBULE NEB SCH (21:20)
[2022-09-02] MEDS: D5 1/2 NS 1,000 ML 1,000 ML IV SCH ×3 (00:42→09:42)
[2022-09-02] MEDS: BUSPAR PO SCH ×3 (05:53→21:00)
[2022-09-02] MEDS: SYNTHROID 150 mcg TAB PO SCH (05:58)
[2022-09-02 06:01] LABS: BASOPHILS # (AUTO) 0.1 X10^3/uL (0.0-0.1); BASOPHILS % (AUTO) 1.3 % (0.2-1.0); EOSINOPHILS # (AUTO) 0.2 x10^3/uL (0.0-0.2); EOSINOPHILS % (AUTO) 2.4 % (0.9-2.9); HEMATOCRIT 40.6 % (36.0-47.0); HEMOGLOBIN 13.7 g/dL (12.0-16.0); LYMPHOCYTES # (AUTO) 1.5 X10^3/uL (1.3-2.9); LYMPHOCYTES % (AUTO) 16.9 % (21.0-51.0); MEAN CORPUSCULAR HEMOGLOBIN 30.7 pg (27.0-34.0); MEAN CORPUSCULAR HGB CONC 33.8 g/dL (33.0-35.0); MEAN CORPUSCULAR VOLUME 90.9 fL (80.0-100.0); MEAN PLATELET VOLUME 10.1 fL (7.4-11.0); MONOCYTES # (AUTO) 0.8 x10^3/uL (0.3-0.8); MONOCYTES % (AUTO) 8.7 % (0.0-13.0); NEUTROPHILS # (AUTO) 6.3 x10^3/uL (2.2-4.8); NEUTROPHILS % (AUTO) 70.7 % (42.0-75.0); RED BLOOD COUNT 4.46 X10^6/uL (3.5-5.4); RED CELL DISTRIBUTION WIDTH 14.6 % (11.6-16.5); WHITE BLOOD COUNT 8.9 X10^3/uL (3.6-10.0)
[2022-09-02 06:16] LABS: ALANINE AMINOTRANSFERASE 15 Units/L (12-78); ALBUMIN 3.2 g/dL (3.4-5.0); ALKALINE PHOSPHATASE 93 Units/L (46-116); ASPARTATE AMINO TRANSFERASE 13 Units/L (15-37); BLOOD UREA NITROGEN 13 mg/dL (7-18); CALCIUM 8.1 mg/dL (8.5-10.1); CARBON DIOXIDE 30.5 mmol/L (21-32); CHLORIDE 100 mmol/L (98-107); COR CA(FOR HYPOALB) 8.7 mg/dL (8.5-10.1); COR NA(FOR HYPERGLY) 144 mmol/L (136-145); CREATININE 0.88 mg/dL (0.55-1.02); SODIUM 136 mmol/L (136-145); TOTAL PROTEIN 6.2 g/dL (6.4-8.2); eGFR NON BLACK RACES > 60 (>60)
[2022-09-02] MEDS: XOPENEX 1.25 MG/3 ML NEBULE NEB SCH ×3 (06:20→21:00)
[2022-09-02] MEDS: DILAUDID INJ IVP PRN ×2 (08:00→18:20)
[2022-09-02] MEDS: PULMICORT NEB TX 0.5 MG NEB SCH ×2 (08:04→21:00)
[2022-09-02] MEDS: SINGULAIR TAB 10 MG PO SCH (09:40)
[2022-09-02] MEDS: GLUCOPHAGE XR 24-HR PO SCH ×2 (09:40→21:00)
[2022-09-02] MEDS: WELLBUTRIN XL 150 MG (DAILY) PO SCH ×2 (09:40→15:00)
[2022-09-02] MEDS: LEXAPRO PO SCH ×2 (09:41→15:00)
[2022-09-02] MEDS: LIPITOR TAB 20 MG PO SCH (09:41)
[2022-09-02] MEDS: NEURONTIN CAP 300 MG PO SCH ×2 (09:41→21:01)
[2022-09-02] MEDS: PROTONIX TAB 40 MG PO SCH (09:41)
[2022-09-02] MEDS: REQUIP PO SCH ×2 (09:41→21:01)
[2022-09-02] MEDS: ACTOS PO SCH (09:42)
[2022-09-02] MEDS: INVOKANA PO SCH (09:42)
[2022-09-02] MEDS ORDERED: NS 1,000 ML IV 1,000 ML ONE (11:35)
[2022-09-02] MEDS: VERSED ONE ×2 (12:11→12:56)
[2022-09-02] MEDS: DIPRIVAN VIAL 20 ML ONE ×2 (12:12→12:55)
[2022-09-02] MEDS: PEPCID 20 MG VIAL ONE ×2 (12:12→12:56)
[2022-09-02] MEDS: ZOFRAN INJ 4 MG VIAL ONE ×2 (12:12→12:55)
[2022-09-02] MEDS: FENTANYL VIAL INJ 100 mcg ONE ×2 (12:12→12:56)
[2022-09-02] MEDS: XYLOCAINE 2 % (PLAIN) ONE ×2 (12:30→12:56)
[2022-09-02] MEDS: NS 100 ML IV 100 ML ONE ×2 (12:49→12:56)
[2022-09-02] MEDS ORDERED: KETAMINE HCL ONE (12:49)
[2022-09-02] MEDS: NEO-SYNEPHRINE INJ ONE ×2 (12:49→13:31)
[2022-09-02] MEDS: MARCAINE SPINAL ONE ×2 (12:49→12:56)
[2022-09-02] MEDS: ANCEF VIAL 1 GRAM ONE ×2 (12:49→12:56)
[2022-09-02] MEDS: NS 1,000 ML IV 1,000 ML IV SCH ×3 (12:55→18:24)
[2022-09-02] MEDS ORDERED: LEXAPRO ONE (13:04)
--- NOTE | 2022-09-02 13:53 | DR.OPNOTE ---
OP NOTE Pre-Op Diagnosis: femoral neck fracture, right nondisplaced Post-Op Diagnosis: same Procedure Date Date Of Procedure: 09/01/22 Procedure: percutaneous screw fixation right hip fracture Type of Anesthesia: Spinal Anesthetic EBL: less than 10cc Hardware: armond 6.5mm screws x 3 Disposition/Condition: Pt. tolerated procedure without difficulty. Extubated in the OR and taken to PACU in stable condition.
[2022-09-02] MEDS ORDERED: BENADRYL INJ 50 MG VIAL IVP PRN (14:14)
[2022-09-02] MEDS ORDERED: ZOFRAN INJ 4 MG VIAL IVP PRN (14:14)
[2022-09-02] MEDS ORDERED: DILAUDID INJ IVP PRN (14:14)
[2022-09-02] MEDS ORDERED: REGLAN INJ 10 MG VIAL IVP PRN (14:14)
[2022-09-02] MEDS ORDERED: BARHEMSYS INJ IVP PRN (14:14)
[2022-09-02] MEDS: NovoLIN R (or HumuLIN R) SC PRN (21:45)
[2022-09-03] MEDS: NS 1,000 ML IV 1,000 ML IV SCH ×4 (02:15→17:59)
[2022-09-03] MEDS: BUSPAR PO SCH ×3 (05:21→21:26)
[2022-09-03] MEDS: XOPENEX 1.25 MG/3 ML NEBULE NEB SCH ×3 (05:45→20:50)
[2022-09-03] MEDS: SYNTHROID 150 mcg TAB PO SCH (05:47)
[2022-09-03] MEDS: NovoLIN R (or HumuLIN R) SC PRN ×2 (05:50→12:01)
[2022-09-03 06:38] LABS: BASOPHILS # (AUTO) 0.1 X10^3/uL (0.0-0.1); BASOPHILS % (AUTO) 1.2 % (0.2-1.0); EOSINOPHILS # (AUTO) 0.3 x10^3/uL (0.0-0.2); EOSINOPHILS % (AUTO) 3.1 % (0.9-2.9); HEMATOCRIT 38.3 % (36.0-47.0); HEMOGLOBIN 12.9 g/dL (12.0-16.0); LYMPHOCYTES # (AUTO) 1.3 X10^3/uL (1.3-2.9); LYMPHOCYTES % (AUTO) 14.6 % (21.0-51.0); MEAN CORPUSCULAR HEMOGLOBIN 30.7 pg (27.0-34.0); MEAN CORPUSCULAR HGB CONC 33.7 g/dL (33.0-35.0); MEAN CORPUSCULAR VOLUME 91.2 fL (80.0-100.0); MEAN PLATELET VOLUME 9.8 fL (7.4-11.0); MONOCYTES # (AUTO) 0.9 x10^3/uL (0.3-0.8); MONOCYTES % (AUTO) 9.8 % (0.0-13.0); NEUTROPHILS # (AUTO) 6.3 x10^3/uL (2.2-4.8); NEUTROPHILS % (AUTO) 71.3 % (42.0-75.0); RED CELL DISTRIBUTION WIDTH 13.9 % (11.6-16.5); WHITE BLOOD COUNT 8.8 X10^3/uL (3.6-10.0)
[2022-09-03 06:57] LABS: ALANINE AMINOTRANSFERASE 14 Units/L (12-78); ALBUMIN 2.7 g/dL (3.4-5.0); ALKALINE PHOSPHATASE 85 Units/L (46-116); ASPARTATE AMINO TRANSFERASE 10 Units/L (15-37); BLOOD UREA NITROGEN 12 mg/dL (7-18); CALCIUM 8.1 mg/dL (8.5-10.1); CARBON DIOXIDE 27.7 mmol/L (21-32); CHLORIDE 105 mmol/L (98-107); COR CA(FOR HYPOALB) 9.1 mg/dL (8.5-10.1); COR NA(FOR HYPERGLY) 145 mmol/L (136-145); CREATININE 0.68 mg/dL (0.55-1.02); SODIUM 141 mmol/L (136-145); TOTAL PROTEIN 5.9 g/dL (6.4-8.2); eGFR NON BLACK RACES > 60 (>60)
[2022-09-03] MEDS ORDERED: LEXAPRO ONE (08:19)
[2022-09-03] MEDS: PULMICORT NEB TX 0.5 MG NEB SCH ×2 (08:49→20:50)
[2022-09-03] MEDS: ACTOS PO SCH (08:51)
[2022-09-03] MEDS: PROTONIX TAB 40 MG PO SCH (08:51)
[2022-09-03] MEDS: NORCO 5/325 MG TAB PO PRN ×2 (08:51→17:54)
[2022-09-03] MEDS: GLUCOPHAGE XR 24-HR PO SCH ×2 (08:51→21:26)
[2022-09-03] MEDS: REQUIP PO SCH ×2 (08:51→21:28)
[2022-09-03] MEDS: WELLBUTRIN XL 150 MG (DAILY) PO SCH (08:51)
[2022-09-03] MEDS: NEURONTIN CAP 300 MG PO SCH ×2 (08:51→21:27)
[2022-09-03] MEDS: SINGULAIR TAB 10 MG PO SCH (08:51)
[2022-09-03] MEDS: LEXAPRO PO SCH (08:52)
[2022-09-03] MEDS: INVOKANA PO SCH (08:52)
[2022-09-03] MEDS: LIPITOR TAB 20 MG PO SCH (11:02)
[2022-09-03] MEDS: XARELTO PO SCH (12:01)
[2022-09-03] MEDS ORDERED: LINZESS PO ONE (14:00)
[2022-09-03] MEDS ORDERED: BUTT CREAM (COMPOUND) TOP PRN (18:40)
[2022-09-03] MEDS: COLACE CAP 100 MG PO SCH (21:27)
[2022-09-03] MEDS: MIRALAX POWDER (1 DOSE 17 G) PO SCH (21:29)
[2022-09-04] MEDS: NORCO 5/325 MG TAB PO PRN ×3 (01:16→12:56)
[2022-09-04] MEDS: BUSPAR PO SCH ×3 (05:49→21:28)
[2022-09-04] MEDS: NS 1,000 ML IV 1,000 ML IV SCH ×4 (05:51→20:07)
[2022-09-04] MEDS: XOPENEX 1.25 MG/3 ML NEBULE NEB SCH ×3 (05:53→21:00)
[2022-09-04] MEDS: SYNTHROID 150 mcg TAB PO SCH (06:15)
[2022-09-04] MEDS: PULMICORT NEB TX 0.5 MG NEB SCH ×2 (08:46→21:00)
[2022-09-04] MEDS ORDERED: LINZESS PO SCH (09:00)
[2022-09-04] MEDS ORDERED: LEXAPRO ONE (09:13)
[2022-09-04] MEDS: REQUIP PO SCH ×2 (09:35→20:09)
[2022-09-04] MEDS: GLUCOPHAGE XR 24-HR PO SCH ×2 (09:36→20:08)
[2022-09-04] MEDS: WELLBUTRIN XL 150 MG (DAILY) PO SCH (09:36)
[2022-09-04] MEDS: INVOKANA PO SCH (09:36)
[2022-09-04] MEDS: XARELTO PO SCH (09:37)
[2022-09-04] MEDS: PROTONIX TAB 40 MG PO SCH (09:37)
[2022-09-04] MEDS: LIPITOR TAB 20 MG PO SCH (09:37)
[2022-09-04] MEDS: NEURONTIN CAP 300 MG PO SCH ×2 (09:37→20:10)
[2022-09-04] MEDS: SINGULAIR TAB 10 MG PO SCH (10:08)
[2022-09-04] MEDS: ACTOS PO SCH (10:08)
[2022-09-04] MEDS: LEXAPRO PO SCH (10:08)
[2022-09-04] MEDS: COLACE CAP 100 MG PO SCH (20:08)
[2022-09-04] MEDS: MIRALAX POWDER (1 DOSE 17 G) PO SCH (20:11)
[2022-09-04] MEDS: NovoLIN R (or HumuLIN R) SC PRN (20:13)
[2022-09-05] MEDS: NS 1,000 ML IV 1,000 ML IV SCH ×6 (03:08→21:51)
[2022-09-05] MEDS: NORCO 5/325 MG TAB PO PRN ×3 (04:18→18:27)
[2022-09-05] MEDS: XOPENEX 1.25 MG/3 ML NEBULE NEB SCH ×4 (05:10→22:08)
[2022-09-05] MEDS: BUSPAR PO SCH ×3 (05:18→21:41)
[2022-09-05] MEDS: SYNTHROID 150 mcg TAB PO SCH (05:31)
[2022-09-05 06:26] LABS: BASOPHILS # (AUTO) 0.1 X10^3/uL (0.0-0.1); BASOPHILS % (AUTO) 1.3 % (0.2-1.0); EOSINOPHILS # (AUTO) 0.4 x10^3/uL (0.0-0.2); EOSINOPHILS % (AUTO) 5.5 % (0.9-2.9); HEMATOCRIT 34.1 % (36.0-47.0); HEMOGLOBIN 11.4 g/dL (12.0-16.0); LYMPHOCYTES # (AUTO) 1.3 X10^3/uL (1.3-2.9); LYMPHOCYTES % (AUTO) 19.7 % (21.0-51.0); MEAN CORPUSCULAR HEMOGLOBIN 30.5 pg (27.0-34.0); MEAN CORPUSCULAR HGB CONC 33.5 g/dL (33.0-35.0); MEAN PLATELET VOLUME 9.5 fL (7.4-11.0); MONOCYTES # (AUTO) 0.8 x10^3/uL (0.3-0.8); MONOCYTES % (AUTO) 11.9 % (0.0-13.0); NEUTROPHILS % (AUTO) 61.6 % (42.0-75.0); RED BLOOD COUNT 3.74 X10^6/uL (3.5-5.4); WHITE BLOOD COUNT 6.5 X10^3/uL (3.6-10.0)
[2022-09-05 06:46] LABS: ALANINE AMINOTRANSFERASE 13 Units/L (12-78); ALBUMIN 2.3 g/dL (3.4-5.0); ALKALINE PHOSPHATASE 74 Units/L (46-116); ASPARTATE AMINO TRANSFERASE 12 Units/L (15-37); BLOOD UREA NITROGEN 10 mg/dL (7-18); CALCIUM 7.9 mg/dL (8.5-10.1); CARBON DIOXIDE 26.7 mmol/L (21-32); CHLORIDE 107 mmol/L (98-107); COR CA(FOR HYPOALB) 9.3 mg/dL (8.5-10.1); COR NA(FOR HYPERGLY) 143 mmol/L (136-145); CREATININE 0.69 mg/dL (0.55-1.02); SODIUM 142 mmol/L (136-145); TOTAL PROTEIN 5.4 g/dL (6.4-8.2); eGFR NON BLACK RACES > 60 (>60)
[2022-09-05] MEDS ORDERED: LEXAPRO ONE (07:31)
[2022-09-05] MEDS: PULMICORT NEB TX 0.5 MG NEB SCH ×2 (09:20→22:08)
[2022-09-05] MEDS: INVOKANA PO SCH (09:51)
[2022-09-05] MEDS: REQUIP PO SCH ×2 (09:51→20:35)
[2022-09-05] MEDS: LEXAPRO PO SCH (09:51)
[2022-09-05] MEDS: SINGULAIR TAB 10 MG PO SCH (09:51)
[2022-09-05] MEDS: XARELTO PO SCH (09:52)
[2022-09-05] MEDS: WELLBUTRIN XL 150 MG (DAILY) PO SCH (09:52)
[2022-09-05] MEDS: GLUCOPHAGE XR 24-HR PO SCH ×2 (09:52→20:36)
[2022-09-05] MEDS: PROTONIX TAB 40 MG PO SCH (09:52)
[2022-09-05] MEDS: NEURONTIN CAP 300 MG PO SCH ×2 (09:52→20:34)
[2022-09-05] MEDS: LIPITOR TAB 20 MG PO SCH (09:52)
[2022-09-05] MEDS: ACTOS PO SCH (09:59)
[2022-09-05] MEDS ORDERED: K-RIDER 10 MEQ/NS 100 ML 10 MEQ/100 ML BAG IV PRN (11:11)
[2022-09-05] MEDS ORDERED: KLOR-CON PO PRN (11:11)
[2022-09-05] MEDS ORDERED: POTASSIUM CHLORIDE LIQ 20 MEQ UDC PO PRN (11:11)
[2022-09-05] MEDS ORDERED: POTASSIUM CHL 40 MEQ/NS 0.45% 500 ML IV PRN (11:11)
[2022-09-05] MEDS ORDERED: MICRO K EXTEN CAP 10 MEQ PO PRN (11:11)
[2022-09-05] MEDS ORDERED: POTASSIUM CHL 60 MEQ/NS 0.45% 500 ML IV PRN (11:11)
[2022-09-05] MEDS: K-DUR TAB 20 MEQ PO PRN (13:29)
[2022-09-05] MEDS: COLACE CAP 100 MG PO SCH (20:36)
[2022-09-05] MEDS: MIRALAX POWDER (1 DOSE 17 G) PO SCH (20:36)
[2022-09-06] MEDS: NS 1,000 ML IV 1,000 ML IV SCH ×4 (03:11→20:47)
[2022-09-06] MEDS: NORCO 5/325 MG TAB PO PRN ×4 (04:02→22:46)
[2022-09-06] MEDS: BUSPAR PO SCH ×3 (05:23→21:04)
[2022-09-06] MEDS: SYNTHROID 150 mcg TAB PO SCH (05:36)
[2022-09-06] MEDS ORDERED: LEXAPRO ONE (08:16)
[2022-09-06] MEDS: XARELTO PO SCH (08:38)
[2022-09-06] MEDS: REQUIP PO SCH ×2 (08:39→20:48)
[2022-09-06] MEDS: GLUCOPHAGE XR 24-HR PO SCH ×2 (08:39→20:48)
[2022-09-06] MEDS: SINGULAIR TAB 10 MG PO SCH (08:40)
[2022-09-06] MEDS: LEXAPRO PO SCH (08:41)
[2022-09-06] MEDS: PROTONIX TAB 40 MG PO SCH (08:41)
[2022-09-06] MEDS: INVOKANA PO SCH (08:41)
[2022-09-06] MEDS: ACTOS PO SCH (08:41)
[2022-09-06] MEDS: WELLBUTRIN XL 150 MG (DAILY) PO SCH (08:42)
[2022-09-06] MEDS: NEURONTIN CAP 300 MG PO SCH ×2 (08:42→20:48)
[2022-09-06] MEDS: LIPITOR TAB 20 MG PO SCH (08:42)
[2022-09-06] MEDS: PULMICORT NEB TX 0.5 MG NEB SCH ×2 (08:53→21:04)
[2022-09-06] MEDS: XOPENEX 1.25 MG/3 ML NEBULE NEB SCH ×2 (14:38→21:04)
[2022-09-06] MEDS: MIRALAX POWDER (1 DOSE 17 G) PO SCH (20:51)
[2022-09-06] MEDS: COLACE CAP 100 MG PO SCH (20:51)
[2022-09-07] MEDS: NS 1,000 ML IV 1,000 ML IV SCH ×2 (05:01→17:07)
[2022-09-07] MEDS: BUSPAR PO SCH (05:29)
[2022-09-07] MEDS: SYNTHROID 150 mcg TAB PO SCH (05:30)
[2022-09-07 05:44] LABS: BASOPHILS # (AUTO) 0.1 X10^3/uL (0.0-0.1); BASOPHILS % (AUTO) 1.4 % (0.2-1.0); EOSINOPHILS # (AUTO) 0.4 x10^3/uL (0.0-0.2); EOSINOPHILS % (AUTO) 6.7 % (0.9-2.9); HEMATOCRIT 33.3 % (36.0-47.0); HEMOGLOBIN 11.4 g/dL (12.0-16.0); LYMPHOCYTES # (AUTO) 1.4 X10^3/uL (1.3-2.9); LYMPHOCYTES % (AUTO) 24.2 % (21.0-51.0); MEAN CORPUSCULAR HEMOGLOBIN 30.8 pg (27.0-34.0); MEAN CORPUSCULAR HGB CONC 34.2 g/dL (33.0-35.0); MEAN CORPUSCULAR VOLUME 90.1 fL (80.0-100.0); MEAN PLATELET VOLUME 8.7 fL (7.4-11.0); MONOCYTES # (AUTO) 0.6 x10^3/uL (0.3-0.8); MONOCYTES % (AUTO) 10.5 % (0.0-13.0); NEUTROPHILS # (AUTO) 3.4 x10^3/uL (2.2-4.8); NEUTROPHILS % (AUTO) 57.2 % (42.0-75.0); RED BLOOD COUNT 3.69 X10^6/uL (3.5-5.4)
[2022-09-07 05:58] LABS: ALANINE AMINOTRANSFERASE 11 Units/L (12-78); ALBUMIN 2.3 g/dL (3.4-5.0); ALKALINE PHOSPHATASE 71 Units/L (46-116); ASPARTATE AMINO TRANSFERASE 10 Units/L (15-37); BLOOD UREA NITROGEN 7 mg/dL (7-18); CARBON DIOXIDE 27.5 mmol/L (21-32); CHLORIDE 107 mmol/L (98-107); COR CA(FOR HYPOALB) 9.4 mg/dL (8.5-10.1); COR NA(FOR HYPERGLY) 142 mmol/L (136-145); CREATININE 0.69 mg/dL (0.55-1.02); SODIUM 141 mmol/L (136-145); TOTAL PROTEIN 5.3 g/dL (6.4-8.2); eGFR NON BLACK RACES > 60 (>60)
[2022-09-07] MEDS: XOPENEX 1.25 MG/3 ML NEBULE NEB SCH ×2 (06:21→13:13)
[2022-09-07] MEDS ORDERED: LEXAPRO ONE (08:19)
[2022-09-07] MEDS: REQUIP PO SCH (08:37)
[2022-09-07] MEDS: NEURONTIN CAP 300 MG PO SCH (08:37)
[2022-09-07] MEDS: NORCO 5/325 MG TAB PO PRN ×2 (08:37→17:16)
[2022-09-07] MEDS: INVOKANA PO SCH (08:38)
[2022-09-07] MEDS: SINGULAIR TAB 10 MG PO SCH (08:39)
[2022-09-07] MEDS: PROTONIX TAB 40 MG PO SCH (08:39)
[2022-09-07] MEDS: WELLBUTRIN XL 150 MG (DAILY) PO SCH (08:39)
[2022-09-07] MEDS: GLUCOPHAGE XR 24-HR PO SCH (08:39)
[2022-09-07] MEDS: XARELTO PO SCH (08:39)
[2022-09-07] MEDS: ACTOS PO SCH (09:06)
[2022-09-07] MEDS: LIPITOR TAB 20 MG PO SCH (09:07)
[2022-09-07] MEDS: LEXAPRO PO SCH (09:07)
[2022-09-07] MEDS: K-DUR TAB 20 MEQ PO PRN (09:12)
[2022-09-07] MEDS: PULMICORT NEB TX 0.5 MG NEB SCH (09:26)
[2022-09-07] MEDS ORDERED: APLISOL ID ONE (10:34)
[2022-09-07 12:34] VITALS: BP 148/65
== END 2022-09-07 17:10 | DRG 482 ==
LOC: ER 11:34 → MED/SURG 15:08
PROVIDERS: ADMIT Obstetrics & Gynecology Obstetrics; ATTEND Obstetrics & Gynecology Obstetrics
PROC: [UNRECOGNIZED PROCEDURE] (2022-09-02 12:15)
DX: Z01.811 Encounter for preprocedural respiratory examination; K59.09 Other constipation; R79.89 Other specified abnormal findings of blood chemistry; Y92.9 Unspecified place or not applicable; X58.XXXA Exposure to other specified factors, initial encounter; Z20.822 Contact with and (suspected) exposure to COVID-19; R26.89 Other abnormalities of gait and mobility; I10 Essential (primary) hypertension; Z66 Do not resuscitate; S72.044A Nondisplaced fracture of base of neck of right femur, initial encounter for closed fracture; Z99.81 Dependence on supplemental oxygen; E11.65 Type 2 diabetes mellitus with hyperglycemia

== ENCOUNTER 2023-05-24 11:31 | Inpatient (IN) ==
--- NOTE | 2023-05-24 11:37 | EKG ---
Test Reason : sob Blood Pressure : */* mmHG Vent. Rate : 71 BPM Atrial Rate : 71 BPM P-R Int : 152 ms QRS Dur : 106 ms QT Int : 430 ms P-R-T Axes : 44 -34 49 degrees QTc Int : 467 ms Normal sinus rhythm Left axis deviation Minimal voltage criteria for LVH, may be normal variant ( [place] product ) Nonspecific T wave abnormality Abnormal ECG When compared with ECG of 11-NOV-2022 10:38, Criteria for Septal infarct are no longer present Nonspecific T wave abnormality has replaced inverted T waves in Anterolateral leads Confirmed by Dakota Abernathy MD ([id number]) on 05/25/2023 7:39:02 AM Referred By: Confirmed By: Dakota Abernathy MD
--- NOTE | 2023-05-24 11:46 | DR.AMS ---
HPI Time Seen Time Seen by Provider: 05/24/23 11:42 PCP Primary Care Physician: DARI Complaint Cheif Complaint Doctors Comments: 68 y/o female , [facility], sent over for decreased responsiveness. Reportedly developed this a.m., had an outpatient ABG which showed elevated pCO2 at 81. Patient is a COPD patient. Patient oxygenating well, placed on BiPAP. She is somnolent, unarousable to verbal or noxious stimuli to me. Has pinpoint pupils. No fever. Patient unable to offer complaints. Chief Complaint:: [facility] STATES PT HAS BEEN UNRESPONSIVE AND HAVING A LOW O2 SAT SINCE THEY ARRIVED ON THE SHIFT THIS AM. SHE IS [place] IN [place] AT THIS TIME. COVID-19 Coronavirus risk:travel/contact w/high risk person: No Has patient experienced Coronavirus symptoms: No Reviewed Nurses Notes Reviewed: Yes Source History Provided: [facility] Mode of Arrival Mode of Arrival: Wheelchair Timing Onset of Chief Complaint: 05/24/23 PMH PMH Past Medical History: Yes Past Medical History: COPD, Diabetes and GERD Past Surgical History: Yes Surgical History: Cholecystectomy, Hysterectomy and Ortho Surgery Family History History of Family Medical Conditions: Yes Family Medical History: Diabetes Mellitus and ID Social History Does any household member use tobacco: No Alcohol Use: None Do you use any recreational Drugs:: No Lives With: Family Lives Where: Home Travel Risk Coronavirus risk:travel/contact w/high risk person: No Has patient experienced Coronavirus symptoms: No Infectious screening In the last 2 months have you had wt loss of >10#?: NO Have you had fever, night sweats or hemotysis?: No Have you traveled outside the country in the last 6 months?: No Isolation: Standard ROS Review of Systems Unable to Obtain Due To: Altered mental status PE Vitals Vital Signs: Temp Pulse Resp BP Pulse Ox O2 Del Method FiO2 05/24/23 16:00 89 33 H 05/24/23 16:00 140/95 05/24/23 15:45 93 H 66 H 05/24/23 15:30 165/78 05/24/23 15:30 165/78 05/24/23 15:30 165/78 05/24/23 15:30 85 27 H 100 05/24/23 15:15 84 30 H 100 05/24/23 15:15 171/73 05/24/23 15:00 81 32 H 100 05/24/23 15:00 170/79 05/24/23 14:50 186/91 05/24/23 14:50 80 22 99 05/24/23 14:45 81 20 99 05/24/23 14:42 79 26 H 97 05/24/23 14:15 202/98 05/24/23 14:15 83 18 98 05/24/23 14:15 202/98 05/24/23 14:01 79 18 98 05/24/23 14:01 94/51 05/24/23 14:00 79 18 99 05/24/23 13:45 78 18 99 05/24/23 13:30 76 18 05/24/23 13:30 183/96 05/24/23 13:15 75 15 05/24/23 13:15 181/88 05/24/23 13:00 73 14 05/24/23 13:00 181/93 05/24/23 12:57 74 15 05/24/23 11:35 40 05/24/23 11:32 98.7 F 73 26 H 187/87 72 L Bi-pap General General Appearance: Obtunded Head Head Exam: Normal Inspection, Atraumatic and Normocephalic Eyes Eye exam: Other (bilateral pinpoint pupils. ) Respiratory Respiratory Exam: Normal Lung Sounds Bilat; negative Accessory Muscle Use or Respiratory Distress Cardiovascular Cardiovascular Exam: Regular Rate, Normal Rhythm and Normal Heart Sounds Abdominal Exam Abdominal Exam: Normal Bowel Sounds and Soft Extremities Extremities Exam: negative Edema Skin Skin Exam: Warm and Dry COURSE Treatment Treatment: 68-year-old female history of COPD retirement patient, is unresponsive. In no respiratory distress. pCO2 of 81 prior to arrival. Placed on BiPAP. Workup initiated. Patient was maintained on BiPAP, repeat ABG being on for a while shows slight improvement of her pCO2 down to 78. Respiratory does have a history of CO2 retention. Becoming more alert after CT scan. CT of the head without acute abnormalities. Discussed with her covering attending, will admit to the hospital for exacerbation of COPD, altered mental status. ROR Labs Reviewed 05/24/23 11:45 05/24/23 11:45 Laboratory: WBC 8.7 X10^3/uL (3.6-10.0) 05/24/23 11:45 RBC 3.39 X10^6/uL (3.5-5.4) L 05/24/23 11:45 Hgb 9.1 g/dL (12.0-16.0) L 05/24/23 11:45 Hct 29.1 % (36.0-47.0) L 05/24/23 11:45 MCV 85.6 fL (80.0-100.0) 05/24/23 11:45 MCH 26.9 pg (27.0-34.0) L 05/24/23 11:45 MCHC 31.5 g/dL (33.0-35.0) L 05/24/23 11:45 RDW 17.6 % (11.6-16.5) H 05/24/23 11:45 Plt Count 394 X10^3/uL (150.0-450.0) 05/24/23 11:45 MPV 8.5 fL (7.4-11.0) 05/24/23 11:45 Neut % (Auto) 80.0 % (42.0-75.0) H 05/24/23 11:45 Lymph % (Auto) 15.0 % (21.0-51.0) L 05/24/23 11:45 [place] % (Auto) 3.0 % (0.0-13.0) 05/24/23 11:45 Eos % (Auto) 0.7 % (0.9-2.9) L 05/24/23 11:45 Baso % (Auto) 1.3 % (0.2-1.0) H 05/24/23 11:45 Neut # (Auto) 7.0 x10^3/uL (2.2-4.8) H 05/24/23 11:45 Lymph # (Auto) 1.3 X10^3/uL (1.3-2.9) 05/24/23 11:45 [place] # (Auto) 0.3 x10^3/uL (0.3-0.8) 05/24/23 11:45 Eos # (Auto) 0.1 x10^3/uL (0.0-0.2) 05/24/23 11:45 Baso # (Auto) 0.1 X10^3/uL (0.0-0.1) 05/24/23 11:45 Absolute Nucleated RBC 0.0 /100WBC 05/24/23 11:45 Sample Site Rbra 05/24/23 13:49 ABG pH 7.310 (7.35-7.45) L 05/24/23 13:49 ABG pCO2 78.0 mmHg (35.0-45.0) H* 05/24/23 13:49 ABG pO2 80.0 mmHg (80.0-100.0) 05/24/23 13:49 ABG HCO3 39.3 mmol/L (22-26) H* 05/24/23 13:49 ABG O2 Saturation 95.0 % (90-100) 05/24/23 13:49 ABG Base Excess 10.1 mmol/L (-2.0-2.0) H 05/24/23 13:49 Nikolay Test N/a 05/24/23 13:49 A-a Gradient 108.0 mmHg 05/24/23 13:49 FiO2 40.0 05/24/23 13:49 Blood Gas Comments Pt sunil well elj 05/24/23 13:49 Sodium 142 mmol/L (136-145) 05/24/23 11:45 Corrected Sodium 143 mmol/L (136-145) 05/24/23 11:45 Potassium 5.0 mmol/L (3.5-5.1) 05/24/23 11:45 Chloride 104 mmol/L (98-107) 05/24/23 11:45 Carbon Dioxide 36.9 mmol/L (21-32) H 05/24/23 11:45 BUN 19 mg/dL (7-18) H 05/24/23 11:45 Creatinine 1.07 mg/dL (0.55-1.02) H 05/24/23 11:45 Est GFR (MDRD) Af Amer > 60 (>60) 05/24/23 11:45 Est GFR (MDRD) Non-Af 54 (>60) L 05/24/23 11:45 Glucose 145 mg/dL (65-99) H 05/24/23 11:45 POC Glucose (mg/dL) 121 mg/dL (65-99) H 05/24/23 11:44 Lactic Acid 0.8 mmol/L (0.4-2.0) 05/24/23 12:27 Calcium 8.1 mg/dL (8.5-10.1) L 05/24/23 11:45 Corrected Calcium 9.3 mg/dL (8.5-10.1) 05/24/23 11:45 Total Bilirubin 0.20 mg/dL (0.2-1.0) 05/24/23 11:45 AST 29 Units/L (15-37) 05/24/23 11:45 ALT 18 Units/L (12-78) 05/24/23 11:45 Alkaline Phosphatase 133 Units/L (46-116) H 05/24/23 11:45 Total Protein 7.9 g/dL (6.4-8.2) 05/24/23 11:45 Albumin 2.5 g/dL (3.4-5.0) L 05/24/23 11:45 Globulin 5.4 g/dL (2.5-4.5) H 05/24/23 11:45 Albumin/Globulin Ratio 0.5 Ratio (1.1-2.1) L 05/24/23 11:45 Specimen Type Catherized urine 05/24/23 14:20 Urine Color Yellow (YELLOW) 05/24/23 14:20 Urine Appearance Clear (CLEAR) 05/24/23 14:20 Urine pH 6.0 (5.0 - 8.0) 05/24/23 14:20 Ur Specific [place] 1.020 (1.000-1.030) 05/24/23 14:20 Urine Protein 2+ (NEGATIVE) 05/24/23 14:20 Urine Glucose (UA) 4+ (NEGATIVE) 05/24/23 14:20 Urine Ketones Negative (NEGATIVE) 05/24/23 14:20 Urine Blood 1+ (NEGATIVE) 05/24/23 14:20 Urine Nitrite Negative (NEGATIVE) 05/24/23 14:20 Urine Bilirubin Negative (NEGATIVE) 05/24/23 14:20 Urine Urobilinogen Normal (NORMAL) 05/24/23 14:20 Ur Leukocyte Esterase 2+ (NEGATIVE) 05/24/23 14:20 Urine RBC 0-2 /HPF (0-3) 05/24/23 14:20 Urine WBC 3-5 /HPF (0-5) 05/24/23 14:20 Ur Squamous Epith Cells Rare /HPF (NEGATIVE) 05/24/23 14:20 Ur Renal Epithelial Cell Rare /HPF (NEGATIVE) 05/24/23 14:20 Amorphous Sediment Trace /HPF (NEGATIVE) 05/24/23 14:20 Urine Bacteria Trace /HPF (NEGATIVE) 05/24/23 14:20 Hyaline Casts Moderate /LPF (NEGATIVE) 05/24/23 14:20 Granular Casts Rare /LPF (NEGATIVE) 05/24/23 14:20 Ur Culture Indicated? No/not indicated 05/24/23 14:20 EKG Rate: 71 Mellott: LAD (-34) Rhythm: NSR ST: Nonsp Opioid Opioid Risk Tool Age (Ryan box if 16-45): No History of Preadolescent Sexual Abuse: No Total: 0 Total Score Risk Category: Low Risk Copyright: Luke WMOACK predicting aberrant behaviors Discharge Plan Diagnosis Discharge Problem: COPD exacerbation, Altered mental status Discharge Plan Patient Disposition: ADMITTED INPATIENT Condition: Stable
[2023-05-24] MEDS ORDERED: ROCEPHIN VIAL 1 GRAM IVP ONE (12:09)
[2023-05-24 12:15] LABS: BASOPHILS # (AUTO) 0.1 X10^3/uL (0.0-0.1); BASOPHILS % (AUTO) 1.3 % (0.2-1.0); EOSINOPHILS # (AUTO) 0.1 x10^3/uL (0.0-0.2); EOSINOPHILS % (AUTO) 0.7 % (0.9-2.9); HEMATOCRIT 29.1 % (36.0-47.0); HEMOGLOBIN 9.1 g/dL (12.0-16.0); LYMPHOCYTES # (AUTO) 1.3 X10^3/uL (1.3-2.9); MEAN CORPUSCULAR HEMOGLOBIN 26.9 pg (27.0-34.0); MEAN CORPUSCULAR HGB CONC 31.5 g/dL (33.0-35.0); MEAN CORPUSCULAR VOLUME 85.6 fL (80.0-100.0); MEAN PLATELET VOLUME 8.5 fL (7.4-11.0); MONOCYTES # (AUTO) 0.3 x10^3/uL (0.3-0.8); PLATELET COUNT 394 X10^3/uL (150.0-450.0); RED BLOOD COUNT 3.39 X10^6/uL (3.5-5.4); RED CELL DISTRIBUTION WIDTH 17.6 % (11.6-16.5); WHITE BLOOD COUNT 8.7 X10^3/uL (3.6-10.0)
[2023-05-24] MEDS ORDERED: ROCEPHIN VIAL 1 GRAM ONE (12:16)
[2023-05-24 12:25] LABS: ALANINE AMINOTRANSFERASE 18 Units/L (12-78); ALBUMIN 2.5 g/dL (3.4-5.0); ALKALINE PHOSPHATASE 133 Units/L (46-116); ASPARTATE AMINO TRANSFERASE 29 Units/L (15-37); BLOOD UREA NITROGEN 19 mg/dL (7-18); CALCIUM 8.1 mg/dL (8.5-10.1); CARBON DIOXIDE 36.9 mmol/L (21-32); CHLORIDE 104 mmol/L (98-107); COR CA(FOR HYPOALB) 9.3 mg/dL (8.5-10.1); COR NA(FOR HYPERGLY) 143 mmol/L (136-145); CREATININE 1.07 mg/dL (0.55-1.02); GLUCOSE 145 mg/dL (65-99); SODIUM 142 mmol/L (136-145); TOTAL PROTEIN 7.9 g/dL (6.4-8.2); eGFR NON BLACK RACES 54 (>60)
[2023-05-24 13:51] LABS: ABG BASE EXCESS 10.1 mmol/L (-2.0-2.0)
[2023-05-24 13:52] LABS: ABG HCO3 39.3 mmol/L (22-26)
[2023-05-24 14:26] LABS: BILIRUBIN,URINE NEGATIVE (NEGATIVE); BLOOD/HEMOGLOBIN,URINE 1+ (NEGATIVE); GLUCOSE, URINE 4+ (NEGATIVE); KETONES,URINE NEGATIVE (NEGATIVE); LEUKOCYTE ESTERASE ,URINE 2+ (NEGATIVE); NITRITES,URINE NEGATIVE (NEGATIVE); PROTEIN,URINE 2+ (NEGATIVE); UROBILINOGEN,URINE NORMAL (NORMAL)
[2023-05-24 14:37] LABS: APPEARANCE,URINE CLEAR (CLEAR); COLOR,URINE YELLOW (YELLOW)
[2023-05-24 14:38] LABS: BACTERIA,URINE TRACE /HPF (NEGATIVE); GRANULAR CASTS,URINE RARE /LPF (NEGATIVE); HYALINE CASTS, URINE MODERATE /LPF (NEGATIVE); RBC,URINE 0-2 /HPF (0-3); RENAL EPITHELIAL CELLS,URINE RARE /HPF (NEGATIVE); SQUAMOUS EPITHELIAL CELL,UR RARE /HPF (NEGATIVE)
--- NOTE | 2023-05-24 15:08 | CT ---
EXAM:BRAIN W/O CONHISTORY:ALTERED MENTAL STATUS;COMPARISON:None.TECHNIQUE:Multipl e axial images of the head were performed from the skullbase to the vertex using standard departmental protocol. Sagittal and coronal reformatted images were performed. Dose reduction techniques including Automated Exposure Control (AEC) and adjustment of mA and kV were utilized.FINDINGS:No hemorrhage or midline shift. [place]-white matter differentiation maintained. Mild atrophy and chronic small vessel ischemic change.Ventricles and cisterns are appropriate.Visualized sinuses show mucosal thickening left sphenoid sinus.. Calvarium unremarkable. No evidence for mass or mass effect by noncontrast CT.IMPRESSION:Mild atrophy and chronic small-vessel ischemic change with no acute intracranial findings. MRI is more sensitive for acute infarct. Mucosal thickening left sphenoid sinus.THIS IS AN ELECTRONICALLY VERIFIED FINAL [id number]/2023 3:05 PM - Electronically signed by Jack Guevara MD
[2023-05-24] MEDS ORDERED: DUONEB 0.5 MG/3 MG (3 mL) NEB ONE (16:20)
[2023-05-24] MEDS: DUONEB 0.5 MG/3 MG (3 mL) NEB SCH ×2 (16:28→18:36)
[2023-05-24] MEDS ORDERED: CONSULT PHARMACY - POTASSIUM & MAGNESIUM XX SCH (16:49)
--- NOTE | 2023-05-24 17:34 | RAD ---
EXAM:CHEST, 1 VIEWHISTORY:UNRESPONSIVE;COMPARISON:10/28FINDINGS:The cardiomediastinal silhouette is prominent. Post sternotomy changes. Right-sided chest port unchanged.Scattered bilateral opacities and large right-sided effusion. No pneumothorax.No acute osseous abnormality.IMPRESSION:Pleural-parenchymal opacities which may be due to edema or pneumonia. Recommend follow-up to resolution.THIS IS AN ELECTRONICALLY VERIFIED FINAL [id number]/24/2023 5:31 PM - Electronically signed by Gil Healy MD
[2023-05-24] MEDS ORDERED: VALIUM INJ ONE (17:43)
[2023-05-24 17:49] VITALS: BMI 25.7
[2023-05-24] MEDS ORDERED: VALIUM INJ IVP ONE (17:51)
[2023-05-24] MEDS ORDERED: DUONEB 0.5 MG/3 MG (3 mL) NEB SCH (18:00)
[2023-05-24] MEDS: D5 1/2 NS 1,000 ML 1,000 ML IV SCH (18:19)
[2023-05-24] MEDS: ROCEPHIN VIAL 1 GRAM 1 G in NS 100 ML IV 100 ML IV SCH (18:20)
[2023-05-24] MEDS ORDERED: RESTORIL CAP 15 MG PO PRN (18:50)
[2023-05-24] MEDS: SOLU-Medrol 40 MG VIAL IVP SCH (21:09)
[2023-05-24] MEDS: PULMICORT NEB TX 0.5 MG NEB SCH (21:30)
[2023-05-25] MEDS: DUONEB 0.5 MG/3 MG (3 mL) NEB SCH ×4 (00:15→17:26)
[2023-05-25] MEDS: D5 1/2 NS 1,000 ML 1,000 ML IV SCH ×3 (04:09→20:07)
[2023-05-25] MEDS ORDERED: MORPHINE SULFATE INJ 2 MG INJ IVP ONE (04:55)
[2023-05-25 05:10] LABS: BASOPHILS % (AUTO) 0.4 % (0.2-1.0); HEMATOCRIT 30.6 % (36.0-47.0); HEMOGLOBIN 9.5 g/dL (12.0-16.0); LYMPHOCYTES # (AUTO) 0.9 X10^3/uL (1.3-2.9); LYMPHOCYTES % (AUTO) 10.6 % (21.0-51.0); MEAN CORPUSCULAR HEMOGLOBIN 26.7 pg (27.0-34.0); MEAN CORPUSCULAR HGB CONC 31.2 g/dL (33.0-35.0); MEAN CORPUSCULAR VOLUME 85.5 fL (80.0-100.0); MEAN PLATELET VOLUME 8.8 fL (7.4-11.0); MONOCYTES # (AUTO) 0.1 x10^3/uL (0.3-0.8); MONOCYTES % (AUTO) 1.6 % (0.0-13.0); NEUTROPHILS # (AUTO) 7.1 x10^3/uL (2.2-4.8); NEUTROPHILS % (AUTO) 87.4 % (42.0-75.0); PLATELET COUNT 400 X10^3/uL (150.0-450.0); RED BLOOD COUNT 3.58 X10^6/uL (3.5-5.4); RED CELL DISTRIBUTION WIDTH 17.9 % (11.6-16.5); WHITE BLOOD COUNT 8.1 X10^3/uL (3.6-10.0)
[2023-05-25 05:16] LABS: ALANINE AMINOTRANSFERASE 14 Units/L (12-78); ALBUMIN 2.4 g/dL (3.4-5.0); ALKALINE PHOSPHATASE 137 Units/L (46-116); ASPARTATE AMINO TRANSFERASE 18 Units/L (15-37); BLOOD UREA NITROGEN 19 mg/dL (7-18); CALCIUM 8.4 mg/dL (8.5-10.1); CHLORIDE 101 mmol/L (98-107); COR CA(FOR HYPOALB) 9.7 mg/dL (8.5-10.1); COR NA(FOR HYPERGLY) 141 mmol/L (136-145); CREATININE 0.99 mg/dL (0.55-1.02); GLUCOSE 200 mg/dL (65-99); MAGNESIUM 2.3 mg/dL (2.0-2.9); POTASSIUM 4.9 mmol/L (3.5-5.1); SODIUM 139 mmol/L (136-145); TOTAL PROTEIN 7.7 g/dL (6.4-8.2); eGFR NON BLACK RACES 59 (>60)
[2023-05-25] MEDS: SOLU-Medrol 40 MG VIAL IVP SCH ×3 (05:27→21:38)
[2023-05-25] MEDS: ROCEPHIN VIAL 1 GRAM 1 G in NS 100 ML IV 100 ML IV SCH (08:22)
--- NOTE | 2023-05-25 08:30 | RAD ---
EXAM:CHEST, 1 VIEWHISTORY:SOB, EXACERBATED COPD ;COMPARISON:05/24/2023FINDINGS:Lungs are better inflated than on prior study. Abnormal opacity present in the lower lateral right chest. This is probably a combination of effusion lung disease. Lung disease may be atelectasis or pneumonia.There may be a small left effusion.Overall no change from yesterday.Heart size probably large. There are calcifications in the arteries consistent with atherosclerosis.The bones are unremarkable.Right subclavian central venous catheter is in the expected location of the superior vena cava. Median sternotomy fixation hardware is present. EKG leads are noted.IMPRESSION:1. Unchanged right effusion2. Unchanged right basilar atelectasis or pneumoniaTHIS IS AN ELECTRONICALLY VERIFIED FINAL [id number]/25/2023 8:21 AM - Electronically signed by Nitesh Danielle MD
[2023-05-25] MEDS ORDERED: LEVAQUIN PREMIX IV 500 MG 500 MG/100 ML BAG IV SCH (09:00)
[2023-05-25] MEDS ORDERED: LOVENOX INJ 40 MG SYR SC SCH (09:00)
[2023-05-25] MEDS: PULMICORT NEB TX 0.5 MG NEB SCH ×2 (09:01→20:24)
[2023-05-25] MEDS: LOVENOX INJ 30 MG SYR SC SCH (09:11)
[2023-05-25] MEDS: FORTAZ or TAZICEF VIAL INJ 1 G in NS 100 ML IV 100 ML IV SCH ×3 (09:21→22:51)
[2023-05-25] MEDS ORDERED: SOLU-Medrol 125 MG VIAL IVP ONE (10:09)
[2023-05-25 10:24] LABS: ABG BASE EXCESS 7.6 mmol/L (-2.0-2.0)
[2023-05-25 10:25] LABS: ABG HCO3 34.7 mmol/L (22-26)
[2023-05-25] MEDS: KLONOPIN TAB 0.5 MG PO SCH ×2 (10:42→21:37)
[2023-05-25] MEDS: NovoLIN R (or HumuLIN R) SUBCUT PRN ×2 (10:58→16:44)
[2023-05-25] MEDS: MORPHINE SULFATE INJ 2 MG INJ IVP PRN ×2 (11:16→21:41)
--- NOTE | 2023-05-25 12:33 | DR.H&P ---
H&P - History & Physical for Day of: H&P Date: 05/24/23 - Chief Complaint Chief Complaint: AMS, RESPIRATORY DISTRESS - History of Present Illness History of Present Illness: IS A 68 YEAR OLD PATIENT OF . SHE HAS A PMH OF COPD, DM II, HYPERLIPIDEMIA, RLS, GERD, ALLERGIC RHINITIS, HTN, HYPOTHYROIDISM, CHF, DEPRESSION. SHE IS A RESIDENT OF [facility]. SHE WAS SENT OVER TO THE ER FROM THE ALF DUE TO DECREASED RESPONSIVENESS AND RESPIRATORY DISTRESS. THEY REPORT THAT HER OXYGEN SATURATIONS HAVE BEEN 84-85% ON OXYGEN AT 4 LPM. AN OUTPATIENT ABG WAS OBTAINED AT 11:45 ON 05/24 AND REVEALED: PH 7.310, PC02 81, P02 82, HC03 40.8, 02 SAT 95, BASE EXCESS 11.3, A-A GRADIENT 73, FI02 36. ON ARRIVAL TO THE ER, SHE WAS SOMNOLENT AND UNAROUSABLE TO VERBAL STIMULATION. SKIN WAS NOTED TO BE GREYISH IN COLOR. ON A RRIVAL, HER VITALS WERE: 98.7-73-26-72%-187/87. SHE WAS PLACED ON THE BIPAP. SATURATIONS INCREASED TO 99% ON THE BIPAP. LABS WERE OBTAINED. WBC 8.7, RBC 3.39, HGB 9.1, HCT 29.1, PLT COUNT 394, SODIUM 142, POTASSIUM 5.0, CHLORIDE 104, BUN 19, CREATININE 1.07, GLUCOSE 145, CALCIUM 8.1, TOTAL BILI 0.20, AST 29, ALT 18, ALK PHOS 133, TOTAL PROTEIN 7.9, ALBUMIN 2.5. ABG WAS REPEATED AT 13:49 AND REVEALED: PH 7.310, PC02 78, P02 80, HC03 39.3, 02 SAT 95, FI02 40. URINALYSIS WAS OBTAINED AND REVEALED: WBC 3-5, RBC 0-2, LEUKOCYTES 2+, BACTERIA TRACE. BLOOD CULTURES WERE SET UP. A CHEST XRAY WAS OBTAINED AND REVEALED: Pleural- parenchymal opacities which may be due to edema or pneumonia. BRAIN CT WITHOUT CONTRAST WAS OBTAINED AND REVEALED: Mild atrophy and chronic small-vessel ischemic change with no acute intracranial findings. MRI is more sensitive for acute infarct. Mucosal thickening left sphenoid sinus. IN THE ER, SHE WAS GIVEN ROCEPHIN 1G IV X 1 DOSE. SHE WAS ADMITTED TO THE HOSPITAL FOR FURTHER EVALUATION AND TREATMENT OF PNEUMONIA, COPD EXACERBATION, RESPIRATORY FAILURE WITH HYPERCAPNIA AND HYPOXIA, AND AMS. SHE WAS STARTED ON D51/2 NS AT KVO, LEVAQUIN 500MG IV DAILY, FORTAZ 1 G IV Q8H, SOLU-MEDROL 80MG IV Q8H, MORPHINE SULFATE 2MG IV Q4H PRN, DUONEBS Q6H, PULMICORT NEBS BID, LOVENOX 30MG SC DAILY, OTBS ACHS, HUMULIN R SLIDING SCALE, KLONOPIN 0.5MG BID. WE WILL RESUME HER HOME MEDICATIONS OF ROSUVASTATIN, PIOGLITAZONE, PANTOPRAZOLE, MONTELUKAST, MYRBETRIQ, METOPROLOL, METFORMIN, LINZESS, LEVOTHYROXINE, LACTULOSE, NORCO, LEVEMIR, GABAPENTIN, FUROSEMIDE, FLONASE, ESCITALOPRAM, EMPAGLIFLOZIN, COLACE, DICLOFENAC, BUSPIRONE, BUPROPION, AND ASPIRIN. OTHERWISE, WE PLAN TO FOLLOW-UP WITH AM LABS AND CHEST XRAY AND CONTINUE TO MONITOR. TIME SPENT ON CLINICAL ASSESSMENT, REVIEWING LABS AND IMAGING, DECISION MAKING, AND DOCUMENTATION GREATER THAN 45 MINUTES. - Past Medical History Past Medical History: Diabetes, COPD, GERD - Past Surgical History Surgical History: Angioplasty/Stents, CABG/Valve Surgery, Cholecystectomy, Hysterectomy, Ortho Surgery - Family History Family Medical History: Diabetes Mellitus, [place] - Social History Does patient currently use any type of tobacco product: No Have you used tobacco products in the last 12 months: No Type of Tobacco Use: None Does any household member use tobacco: No Alcohol Use: None Drug Use: Prescription Drugs - Review of Systems Constitutional: Weakness. denies: Fever, Chills Eyes: No Symptoms Reported ENT: No Symptoms Reported Respiratory: Cough, Shortness of Breath, SOB with Excertion, Wheezing Cardiovascular: Light Headedness Gastrointestinal: No Symptoms Reported Genitourinary: No Symptoms Reported Musculoskeletal: No Symptoms Reported Skin: No Symptoms Reported Neurological: Weakness - Physical Exam Vital Signs: Vital Signs Temperature 97.7 F Pulse Rate [Apical] 71 Pulse Rate [Apical] 71 Pulse Rate 93 Pulse Rate 87 Pulse Rate 81 Pulse Rate 80 Pulse Rate 75 Pulse Rate 73 Pulse Rate 74 Pulse Rate 73 Pulse Rate 72 Pulse Rate 73 Pulse Rate 72 Pulse Rate 71 Pulse Rate 73 Pulse Rate 73 Pulse Rate 75 Pulse Rate 77 Pulse Rate 74 Pulse Rate 78 Pulse Rate 74 Pulse Rate 72 Pulse Rate 70 Pulse Rate 68 Pulse Rate 69 Pulse Rate 71 Pulse Rate 76 Pulse Rate 75 Pulse Rate 76 Pulse Rate 76 Pulse Rate 79 Pulse Rate 78 Pulse Rate 72 Pulse Rate 72 Respiratory Rate 22 Respiratory Rate 23 Respiratory Rate 22 Respiratory Rate 24 Respiratory Rate 23 Respiratory Rate 18 Respiratory Rate 20 Respiratory Rate 20 Respiratory Rate 21 Respiratory Rate 22 Respiratory Rate 24 Respiratory Rate 19 Respiratory Rate 13 Respiratory Rate 15 Respiratory Rate 13 Respiratory Rate 15 Respiratory Rate 14 Respiratory Rate 22 Respiratory Rate 12 Respiratory Rate 17 Respiratory Rate 16 Respiratory Rate 19 Respiratory Rate 22 Respiratory Rate 22 Respiratory Rate 19 Respiratory Rate 22 Respiratory Rate 24 Respiratory Rate 20 Respiratory Rate 22 Respiratory Rate 23 Respiratory Rate 24 Respiratory Rate 24 Respiratory Rate 19 Respiratory Rate 17 Respiratory Rate 14 Blood Pressure [Right Arm] 141/91 Blood Pressure [Right Arm] 165/72 Blood Pressure 144/82 Blood Pressure 144/82 Blood Pressure 144/82 Blood Pressure 135/76 Blood Pressure 142/102 Blood Pressure 155/79 Blood Pressure 152/61 Blood Pressure 154/73 Blood Pressure 141/91 Blood Pressure 165/72 Blood Pressure 201/88 Blood Pressure 213/90 Blood Pressure 183/78 Blood Pressure 201/91 O2 Sat by Pulse Oximetry 95 O2 Sat by Pulse Oximetry 93 O2 Sat by Pulse Oximetry 100 O2 Sat by Pulse Oximetry 99 O2 Sat by Pulse Oximetry 97 O2 Sat by Pulse Oximetry 98 O2 Sat by Pulse Oximetry 99 O2 Sat by Pulse Oximetry 98 O2 Sat by Pulse Oximetry 98 O2 Sat by Pulse Oximetry 96 O2 Sat by Pulse Oximetry 98 O2 Sat by Pulse Oximetry 99 O2 Sat by Pulse Oximetry 99 O2 Sat by Pulse Oximetry 100 O2 Sat by Pulse Oximetry 100 O2 Sat by Pulse Oximetry 100 O2 Sat by Pulse Oximetry 100 O2 Sat by Pulse Oximetry 100 O2 Sat by Pulse Oximetry 100 O2 Sat by Pulse Oximetry 100 O2 Sat by Pulse Oximetry 100 O2 Sat by Pulse Oximetry 100 O2 Sat by Pulse Oximetry 100 O2 Sat by Pulse Oximetry 99 O2 Sat by Pulse Oximetry 100 O2 Sat by Pulse Oximetry 100 O2 Sat by Pulse Oximetry 99 O2 Sat by Pulse Oximetry 100 O2 Sat by Pulse Oximetry 100 O2 Sat by Pulse Oximetry 100 O2 Sat by Pulse Oximetry 100 O2 Sat by Pulse Oximetry 100 O2 Sat by Pulse Oximetry 98 O2 Sat by Pulse Oximetry 98 Oriented: Normal Eyes: Normal Nose: Normal Throat: Normal Respiratory: Wheezes Throughout Cardiovascular: Normal : Normal Auscultation: Bowel Sounds: Normal Palpation: Normal Tenderness: Normal Skin: Normal Musculoskeletal: Normal Psychiatric: Normal Mood Description: Flat Affect: Flat Speech Pattern: Clear, Inappropriate - Assessment/Plan (1) Pneumonia Qualifiers: Pneumonia type: due to unspecified organism Laterality: right Lung locati on: lower lobe of lung Qualified Code(s): J18.9 - Pneumonia, unspecified organism Status: Acute Plan: ADMIT, RESPIRATORY THERAPY, BIPAP/SUPPLEMENTAL OXYGEN, D51/2 NS AT KVO, LEVAQUIN 500MG IV DAILY, FORTAZ 1 G IV Q8H, SOLU-MEDROL 80MG IV Q8H, MORPHINE SULFATE 2MG IV Q4H PRN, DUONEBS Q6H, PULMICORT NEBS BID, LOVENOX 30MG SC DAILY, OTBS ACHS, HUMULIN R SLIDING SCALE, KLONOPIN 0.5MG BID. 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 insulin use: with fpc use Diabetes mellitus complication status: with hyperglycemia Qualified Code(s): E11.65 - Type 2 diabetes mellitus with hyperglycemia; Z79.4 - jail (current) use of insulin Status: Chronic (7) Depressive disorder Status: Chronic (8) Essential hypertension Status: Chronic (9) Hypothyroidism Qualifiers: Hypothyroidism type: acquired Qualified Code(s): E03.9 - Hypothyroidism, unspecified Status: Chronic - Allergies Allergies/Adverse Reactions: Allergies Allergy/AdvReac Type Severity Reaction Status Date / Time No Known Allergies [NKA] Allergy Verified 01/28/22 09:59 - Medications Home Medications: Home Medications Medication Instructions Recorded Confirmed albuterol sulfate 2.5 mg/3 mL 2.5 mg inhalation Q6H 05/25/23 05/25/23 (0.083 %) solution for nebulization aspirin 81 mg tablet 81 mg PO QDAY 05/25/23 05/25/23 budesonide 0.25 mg/2 mL suspension 0.25 mg inhalation BID 05/25/23 05/25/23 for nebulization bupropion HCl 150 mg 24 hr tablet, 150 mg PO QDAY 05/25/23 05/25/23 extended release buspirone 7.5 mg tablet 7.5 mg PO TID 05/25/23 05/25/23 buspirone 7.5 mg tablet 7.5 mg PO TID 05/25/23 05/25/23 diclofenac sodium 1 % topical gel 1 g topical BID 05/25/23 05/25/23 docusate sodium 100 mg capsule 100 mg PO QDAY 05/25/23 05/25/23 (Colace) empagliflozin 25 mg tablet 25 mg PO QDAY 05/25/23 05/25/23 escitalopram oxalate 20 mg tablet 20 mg PO QDAY 05/25/23 05/25/23 fluticasone propionate 50 1 spray intranasal QDAY 05/25/23 05/25/23 mcg/actuation nasal spray,suspension furosemide 20 mg tablet 20 mg PO QDAY 05/25/23 05/25/23 gabapentin 600 mg tablet 600 mg PO BID 05/25/23 05/25/23 hydrocodone 10 mg-acetaminophen 1 tab PO QID PRN Pain 05/25/23 05/25/23 325 mg tablet insulin detemir U-100 100 unit/mL 10 unit subcut HS 05/25/23 05/25/23 subcutaneous solution (Levemir U-100 Insulin) lactulose 10 gram/15 mL oral 45 ml PO TID 05/25/23 05/25/23 solution levothyroxine 88 mcg tablet 88 mcg PO QDAY 05/25/23 05/25/23 linaclotide 290 mcg capsule 290 mcg PO QDAY 05/25/23 05/25/23 (Linzess) metformin 1,000 mg tablet 1,000 mg PO BID 05/25/23 05/25/23 metoprolol tartrate 25 mg tablet 25 mg PO BID 05/25/23 05/25/23 mirabegron 25 mg tablet,extended 25 mg PO QDAY 05/25/23 05/25/23 release 24 hr (Myrbetriq) montelukast 10 mg tablet 10 mg PO HS 05/25/23 05/25/23 pantoprazole 40 mg tablet,delayed 40 mg PO QDAY 05/25/23 05/25/23 release pioglitazone 30 mg tablet 30 mg PO QDAY 05/25/23 05/25/23 ropinirole 2 mg tablet 2 mg PO BID 05/25/23 05/25/23 rosuvastatin 40 mg tablet 40 mg PO HS 05/25/23 05/25/23
[2023-05-25] MEDS ORDERED: GLUCOPHAGE ONE ×2 (13:45→21:16)
[2023-05-25] MEDS ORDERED: LEXAPRO ONE (13:46)
[2023-05-25] MEDS: FLONASE NASAL SPRAY ENOSTRIL SCH (13:53)
[2023-05-25] MEDS: LEXAPRO PO SCH (13:54)
[2023-05-25] MEDS: LASIX PO SCH (13:55)
[2023-05-25] MEDS: GLUCOPHAGE PO SCH ×2 (13:55→21:38)
[2023-05-25] MEDS: LINZESS PO SCH (13:55)
[2023-05-25] MEDS: WELLBUTRIN XL 150 MG (DAILY) PO SCH (13:55)
[2023-05-25] MEDS: ACTOS PO SCH (13:55)
[2023-05-25] MEDS: ASPIRIN EC 81 MG PO SCH (13:56)
[2023-05-25] MEDS: PROTONIX TAB 40 MG PO SCH (13:56)
[2023-05-25] MEDS: SYNTHROID 88 mcg TAB PO SCH (13:56)
[2023-05-25] MEDS: BUSPAR PO SCH ×2 (13:57→22:51)
[2023-05-25] MEDS ORDERED: CHRONULAC PO SCH (14:00)
[2023-05-25] MEDS: VOLTAREN 1 % GEL MULTI DOSE TUBE TOP SCH ×2 (14:04→21:46)
[2023-05-25] MEDS: NORCO 10/325 TAB PO PRN (14:06)
[2023-05-25] MEDS: PATIENT'S HOME MEDICATION (Empagliflozin 25 mg Tablet) PO SCH (14:51)
[2023-05-25] MEDS ORDERED: SNACK - Diabetic Appropriate PO SCH (20:00)
[2023-05-25] MEDS ORDERED: NEURONTIN TAB 600 MG PO SCH (21:00)
[2023-05-25] MEDS: CRESTOR TAB 10 MG PO SCH (21:36)
[2023-05-25] MEDS: LEVEMIR SC SCH (21:36)
[2023-05-25] MEDS: LOPRESSOR TAB 25 MG PO SCH (21:37)
[2023-05-25] MEDS: SINGULAIR TAB 10 MG PO SCH (21:39)
[2023-05-25] MEDS: SNACK - Diabetic Appropriate PO SCH (21:45)
[2023-05-26] MEDS: DUONEB 0.5 MG/3 MG (3 mL) NEB SCH ×4 (00:08→17:30)
[2023-05-26] MEDS: NORCO 10/325 TAB PO PRN ×2 (04:52→21:19)
[2023-05-26 05:17] LABS: ABG BASE EXCESS 10.9 mmol/L (-2.0-2.0)
[2023-05-26 05:32] LABS: BASOPHILS % (AUTO) 0.1 % (0.2-1.0); HEMATOCRIT 29.9 % (36.0-47.0); HEMOGLOBIN 9.4 g/dL (12.0-16.0); LYMPHOCYTES # (AUTO) 0.3 X10^3/uL (1.3-2.9); LYMPHOCYTES % (AUTO) 3.2 % (21.0-51.0); MEAN CORPUSCULAR HGB CONC 31.4 g/dL (33.0-35.0); MONOCYTES # (AUTO) 0.3 x10^3/uL (0.3-0.8); MONOCYTES % (AUTO) 3.6 % (0.0-13.0); NEUTROPHILS # (AUTO) 8.4 x10^3/uL (2.2-4.8); NEUTROPHILS % (AUTO) 93.1 % (42.0-75.0); PLATELET COUNT 401 X10^3/uL (150.0-450.0); RED BLOOD COUNT 3.48 X10^6/uL (3.5-5.4); RED CELL DISTRIBUTION WIDTH 18.5 % (11.6-16.5)
[2023-05-26 05:48] LABS: ALANINE AMINOTRANSFERASE 19 Units/L (12-78); ALBUMIN 2.3 g/dL (3.4-5.0); ALKALINE PHOSPHATASE 139 Units/L (46-116); ASPARTATE AMINO TRANSFERASE 23 Units/L (15-37); BLOOD UREA NITROGEN 26 mg/dL (7-18); CALCIUM 8.3 mg/dL (8.5-10.1); CARBON DIOXIDE 35.1 mmol/L (21-32); CHLORIDE 102 mmol/L (98-107); COR CA(FOR HYPOALB) 9.7 mg/dL (8.5-10.1); COR NA(FOR HYPERGLY) 145 mmol/L (136-145); CREATININE 1.15 mg/dL (0.55-1.02); GLUCOSE 362 mg/dL (65-99); SODIUM 139 mmol/L (136-145); TOTAL PROTEIN 7.3 g/dL (6.4-8.2); eGFR NON BLACK RACES 50 (>60)
[2023-05-26 05:53] LABS: POTASSIUM 5.6 mmol/L (3.5-5.1)
[2023-05-26] MEDS: NovoLIN R (or HumuLIN R) SUBCUT PRN ×3 (06:04→21:25)
[2023-05-26] MEDS: SOLU-Medrol 40 MG VIAL IVP SCH ×3 (06:05→21:19)
[2023-05-26] MEDS: FORTAZ or TAZICEF VIAL INJ 1 G in NS 100 ML IV 100 ML IV SCH ×2 (06:05→21:18)
[2023-05-26] MEDS: BUSPAR PO SCH ×3 (06:06→21:23)
[2023-05-26 06:07] LABS: PLATELET MORPHOLOGY COMMENT NORMAL (NORMAL)
[2023-05-26 06:08] LABS: ANISOCYTOSIS SLIGHT; HYPOCHROMASIA SLIGHT
[2023-05-26] MEDS ORDERED: GLUCOPHAGE ONE ×2 (08:02→21:01)
[2023-05-26] MEDS ORDERED: LEXAPRO ONE (08:03)
--- NOTE | 2023-05-26 08:08 | RAD ---
EXAM:CHEST, 1 VIEWHISTORY:SOB ;COMPARISON:05/25/2023FINDINGS:Right pleural effusion appears loculated unchanged from prior study. Abnormal opacity in the right lung base probably not changed significantly; this could be atelectasis or pneumonia.Left lung clear.Cardiomegaly is present.The bones are unremarkable.Right subclavian central venous catheter is in the expected location of the superior vena cava. Median sternotomy fixation hardware is present. EKG leads are noted.IMPRESSION:1. Unchanged right basilar atelectasis or pneumonia2. Unchanged right effusion3. CardiomegalyTHIS IS AN ELECTRONICALLY VERIFIED FINAL [id number]/26/[id number] 8:04 AM - Electronically signed by Nitesh Danielle MD
[2023-05-26] MEDS: PATIENT'S HOME MEDICATION (Empagliflozin 25 mg Tablet) PO SCH (08:29)
[2023-05-26] MEDS: LINZESS PO SCH (08:30)
[2023-05-26] MEDS: NEURONTIN CAP 400 MG PO SCH ×2 (08:30→21:20)
[2023-05-26] MEDS: LOVENOX INJ 30 MG SYR SC SCH (08:30)
[2023-05-26] MEDS: PROTONIX TAB 40 MG PO SCH (08:30)
[2023-05-26] MEDS: LEVAQUIN PREMIX IV 250 MG 250 MG/50 ML BAG IV SCH (08:30)
[2023-05-26] MEDS: ASPIRIN EC 81 MG PO SCH (08:30)
[2023-05-26] MEDS: LASIX PO SCH (08:30)
[2023-05-26] MEDS: SYNTHROID 88 mcg TAB PO SCH (08:31)
[2023-05-26] MEDS: LEXAPRO PO SCH (08:31)
[2023-05-26] MEDS: KLONOPIN TAB 0.5 MG PO SCH ×2 (08:31→21:20)
[2023-05-26] MEDS: ACTOS PO SCH (08:31)
[2023-05-26] MEDS: COLACE CAP 100 MG PO SCH (08:31)
[2023-05-26] MEDS: GLUCOPHAGE PO SCH ×2 (08:31→21:20)
[2023-05-26] MEDS: WELLBUTRIN XL 150 MG (DAILY) PO SCH (08:31)
[2023-05-26] MEDS: LOPRESSOR TAB 25 MG PO SCH ×2 (08:31→21:21)
[2023-05-26] MEDS: MORPHINE SULFATE INJ 2 MG INJ IVP PRN ×2 (08:37→18:13)
[2023-05-26] MEDS: PULMICORT NEB TX 0.5 MG NEB SCH ×2 (09:05→21:00)
[2023-05-26] MEDS: FLONASE NASAL SPRAY ENOSTRIL SCH (09:53)
[2023-05-26] MEDS: VOLTAREN 1 % GEL MULTI DOSE TUBE TOP SCH ×2 (09:54→21:22)
[2023-05-26] MEDS: D5 1/2 NS 1,000 ML 1,000 ML IV SCH ×2 (10:29→21:16)
--- NOTE | 2023-05-26 16:08 | PCM.PROG ---
Progress Note - Progress Note for Day of Date of Exam: 05/26/23 - Subjective Subjective: IS CURRENTLY INPATIENT STATUS FOR TREATMENT OF PNEUMONIA, COPD EXACERBATION, RESPIRATORY FAILURE WITH HYPOXIA AND HYPERCAPNIA. SHE HAS A PMH OF COPD, DM II, HYPERLIPIDEMIA, RLS, GERD, ALLERGIC RHINITIS, HTN, HYPOTHYROIDISM, CHF, DEPRESSION. SHE IS A RESIDENT OF [facility]. TODAY, SHE IS LYING IN BED WITH EYES CLOSED ON MORNING ROUNDS. SHE AWAKENS AND RESPONDS APPROPRIATELY TO VERBAL STIMULI. SHE CONTINUES TO COMPLAIN OF SHORTNESS OF BREATH THIS MORNING, BUT DOES ADMIT TO SLIGHT IMPROVEMENT IN SYMPTOMS THIS MORNING. SHE REMAINS ON OXYGEN VIA NASAL CANNULA AT 4 LPM THIS MORNING. HER OXYGEN SATURATIONS HAVE REMAINED IN THE 90s THIS MORNING. UPON EXAMINATION, HEART IS REGULAR IN RATE AND RHYTHM. BILATERAL LUNGS ARE NOTED WITH SCATTERED WHEEZING THROUGHOUT. ABDOMEN IS ROUND, SOFT, AND NON-TENDER WITH NORMAL BOWEL SOUNDS NOTED IN ALL QUADRANTS. GOOD RANGE OF MOTION NOTED TO UPPER AND LOWER EXTREMITIES WITH NO EDEMA NOTED. HER VITALS THIS MORNING ARE: 97.7-72-24-98%- 152/61. LABS WERE OBTAINED. WBC 9.0, RBC 3.48, HGB 9.4, HCT 29.9, PLT COUNT 401, SODIUM 139, POTASSIUM 5.6, CHLORIDE 102, CARBON DIOXIDE 35.1, BUN 26, CREATININE 1.15, GLUCOSE 362, CALCIUM 8.3, TOTAL BILI 0.20, AST 23, ALT 19, ALK PHOS 139, TOTAL PROTEIN 7.3, ALBUMIN 2.3. ABG WAS REPEATED THIS MORNING. IT REVEALED: 7.360, PC02 69, P02 95, HC03 39, 02 SAT 97, BASE EXCESS 10.9, A-A GRADIENT 104, FI02 40. RESPIRATORY VIRAL PANEL AND BLOOD CULTURES ARE PENDING. CHEST XRAY WAS REPEATED THIS MORNING AND REVEALED: 1. Unchanged right basilar atelectasis or pneumonia 2. Unchanged right effusion 3. Cardiomegaly. SHE IS CURRENTLY RECEIVING D51/2 NS AT KVO, LEVAQUIN 500MG IV DAILY, FORTAZ 1 G IV Q8H, SOLU- MEDROL 80MG IV Q8H, MORPHINE SULFATE 2MG IV Q4H PRN, DUONEBS Q6H, PULMICORT NEBS BID, LOVENOX 30MG SC DAILY, OTBS ACHS, HUMULIN R SLIDING SCALE, KLONOPIN 0.5MG BID. WE RESUMED HER HOME MEDICATIONS OF ROSUVASTATIN, PIOGLITAZONE, PANTOPRAZOLE, MONTELUKAST, MYRBETRIQ, METOPROLOL, METFORMIN, LINZESS, LEVOTHYROXINE, LACTULOSE, NORCO, LEVEMIR, GABAPENTIN, FUROSEMIDE, FLONASE, ESCITALOPRAM, EMPAGLIFLOZIN, COLACE, DICLOFENAC, BUSPIRONE, BUPROPION, AND ASPIRIN. WE WILL CONTINUE WITH CURRENT PLAN OF CARE TODAY. OTHERWISE, WE PLAN TO FOLLOW-UP WITH AM LABS AND CHEST XRAY AND CONTINUE TO MONITOR. TIME SPENT ON CLINICAL ASSESSMENT, REVIEWING LABS AND IMAGING, DECISION MAKING, AND DOCUMENTATION GREATER THAN 45 MINUTES. - Past Medical Family Social History Past Med/Fam/Surg Hx: No changes since H&P Allergies: Allergies No Known Allergies [NKA] Allergy (Verified 01/28/22 09:59) - Review of Systems ROS: No change since H&P - Vital Signs and I&O's Vital Signs: Vital Signs Temperature 97.9 F Pulse Rate 64 Pulse Rate 64 Pulse Rate 63 Pulse Rate 67 Pulse Rate 63 Pulse Rate 63 Pulse Rate 67 Pulse Rate 66 Pulse Rate 67 Pulse Rate 68 Pulse Rate 70 Respiratory Rate 23 Respiratory Rate 16 Respiratory Rate 22 Respiratory Rate 17 Respiratory Rate 22 Respiratory Rate 12 Respiratory Rate 18 Respiratory Rate 21 Respiratory Rate 21 Respiratory Rate 18 Blood Pressure 105/49 Blood Pressure 102/56 Blood Pressure 122/59 Blood Pressure 131/58 Blood Pressure 110/55 Blood Pressure 107/51 O2 Sat by Pulse Oximetry 100 O2 Sat by Pulse Oximetry 85 O2 Sat by Pulse Oximetry 88 O2 Sat by Pulse Oximetry 86 O2 Sat by Pulse Oximetry 90 O2 Sat by Pulse Oximetry 94 O2 Sat by Pulse Oximetry 99 O2 Sat by Pulse Oximetry 99 O2 Sat by Pulse Oximetry 90 O2 Sat by Pulse Oximetry 100 Intake and Output: Intake & Output 05/24/23 05/25/23 05/26/23 05/27/23 11:59 11:59 11:59 11:59 Intake Total 1183 / 1183 1567 / 1567 389 / 389 Balance 1183 / 1183 1567 / 1567 389 / 389 - Physical Exam Oriented: Normal Eyes: Normal Ear: Normal Nose: Normal Throat: Normal Respiratory: Generalized, Wheezes Cardiovascular: Normal : Normal Auscultation: Bowel Sounds: Normal Palpation: Normal Tenderness: Normal Skin: Normal Musculoskeletal: Normal Psychiatric: Normal Mood Description: Flat Affect: Flat Speech Pattern: Clear, Appropriate - Laboratory and Diagnostics Result Diagrams: 05/26/23 04:10 05/26/23 04:10 Labs: 05/24/23 12:20 Blood Blood Culture Gram Stain - Final 05/24/23 12:20 Blood Blood Culture - Preliminary 05/24/23 12:27 Blood Blood Culture Gram Stain - Final 05/24/23 12:27 Blood Blood Culture - Preliminary Laboratory WBC 9.0 X10^3/uL (3.6-10.0) 05/26/23 04:10 RBC 3.48 X10^6/uL (3.5-5.4) L 05/26/23 04:10 Hgb 9.4 g/dL (12.0-16.0) L 05/26/23 04:10 Hct 29.9 % (36.0-47.0) L 05/26/23 04:10 MCV 86.0 fL (80.0-100.0) 05/26/23 04:10 MCH 27.0 pg (27.0-34.0) 05/26/23 04:10 MCHC 31.4 g/dL (33.0-35.0) L 05/26/23 04:10 RDW 18.5 % (11.6-16.5) H 05/26/23 04:10 Plt Count 401 X10^3/uL (150.0-450.0) 05/26/23 04:10 Plt Count Comment Adequate (ADEQUATE) 05/26/23 04:10 MPV 9.0 fL (7.4-11.0) 05/26/23 04:10 Neut % (Auto) 93.1 % (42.0-75.0) H 05/26/23 04:10 Lymph % (Auto) 3.2 % (21.0-51.0) L 05/26/23 04:10 Williamson % (Auto) 3.6 % (0.0-13.0) 05/26/23 04:10 Eos % (Auto) 0.0 % (0.9-2.9) L 05/26/23 04:10 Baso % (Auto) 0.1 % (0.2-1.0) L 05/26/23 04:10 Neut # (Auto) 8.4 x10^3/uL (2.2-4.8) H 05/26/23 04:10 Lymph # (Auto) 0.3 X10^3/uL (1.3-2.9) L 05/26/23 04:10 Williamson # (Auto) 0.3 x10^3/uL (0.3-0.8) 05/26/23 04:10 Eos # (Auto) 0.0 x10^3/uL (0.0-0.2) 05/26/23 04:10 Baso # (Auto) 0.0 X10^3/uL (0.0-0.1) 05/26/23 04:10 Absolute Nucleated RBC 0.0 /100WBC 05/26/23 04:10 Total Counted 100 05/26/23 04:10 Neutrophils % (Manual) 91 % (39-76) H 05/26/23 04:10 Lymphocytes % (Manual) 3 % (13-43) L 05/26/23 04:10 Monocytes % (Manual) 6 % (4-9) 05/26/23 04:10 Plt Morphology Comment Normal (NORMAL) 05/26/23 04:10 RBC Morphology Abnormal (NORMAL) A 05/26/23 04:10 Hypochromasia Slight A 05/26/23 04:10 Anisocytosis Slight A 05/26/23 04:10 Sample Site Lb 05/26/23 05:12 ABG pH 7.360 (7.35-7.45) 05/26/23 05:12 ABG pCO2 69.0 mmHg (35.0-45.0) H* 05/26/23 05:12 ABG pO2 95.0 mmHg (80.0-100.0) 05/26/23 05:12 ABG HCO3 39.0 mmol/L (22-26) H* 05/26/23 05:12 ABG O2 Saturation 97.0 % (90-100) 05/26/23 05:12 ABG Base Excess 10.9 mmol/L (-2.0-2.0) H 05/26/23 05:12 Nikolay Test N/a 05/26/23 05:12 A-a Gradient 104.0 mmHg 05/26/23 05:12 FiO2 40.0 05/26/23 05:12 Blood Gas Comments Caden well ae 05/26/23 05:12 Sodium 139 mmol/L (136-145) 05/26/23 04:10 Corrected Sodium 145 mmol/L (136-145) 05/26/23 04:10 Potassium 5.6 mmol/L (3.5-5.1) H 05/26/23 04:10 Chloride 102 mmol/L (98-107) 05/26/23 04:10 Carbon Dioxide 35.1 mmol/L (21-32) H 05/26/23 04:10 BUN 26 mg/dL (7-18) H 05/26/23 04:10 Creatinine 1.15 mg/dL (0.55-1.02) H 05/26/23 04:10 Est GFR (MDRD) Af Amer > 60 (>60) 05/26/23 04:10 Est GFR (MDRD) Non-Af 50 (>60) L 05/26/23 04:10 Glucose 362 mg/dL (65-99) H 05/26/23 04:10 POC Glucose (mg/dL) 196 mg/dL (65-99) H 05/26/23 16:04 Lactic Acid 0.8 mmol/L (0.4-2.0) 05/24/23 12:27 Calcium 8.3 mg/dL (8.5-10.1) L 05/26/23 04:10 Corrected Calcium 9.7 mg/dL (8.5-10.1) 05/26/23 04:10 Magnesium 2.3 mg/dL (2.0-2.9) 05/25/23 04:04 Total Bilirubin 0.20 mg/dL (0.2-1.0) 05/26/23 04:10 AST 23 Units/L (15-37) 05/26/23 04:10 ALT 19 Units/L (12-78) 05/26/23 04:10 Alkaline Phosphatase 139 Units/L (46-116) H 05/26/23 04:10 Total Protein 7.3 g/dL (6.4-8.2) 05/26/23 04:10 Albumin 2.3 g/dL (3.4-5.0) L 05/26/23 04:10 Globulin 5.0 g/dL (2.5-4.5) H 05/26/23 04:10 Albumin/Globulin Ratio 0.5 Ratio (1.1-2.1) L 05/26/23 04:10 Specimen Type Catherized urine 05/24/23 14:20 Urine Color Yellow (YELLOW) 05/24/23 14:20 Urine Appearance Clear (CLEAR) 05/24/23 14:20 Urine pH 6.0 (5.0 - 8.0) 05/24/23 14:20 Ur Specific [place] 1.020 (1.000-1.030) 05/24/23 14:20 Urine Protein 2+ (NEGATIVE) 05/24/23 14:20 Urine Glucose (UA) 4+ (NEGATIVE) 05/24/23 14:20 Urine Ketones Negative (NEGATIVE) 05/24/23 14:20 Urine Blood 1+ (NEGATIVE) 05/24/23 14:20 Urine Nitrite Negative (NEGATIVE) 05/24/23 14:20 Urine Bilirubin Negative (NEGATIVE) 05/24/23 14:20 Urine Urobilinogen Normal (NORMAL) 05/24/23 14:20 Ur Leukocyte Esterase 2+ (NEGATIVE) 05/24/23 14:20 Urine RBC 0-2 /HPF (0-3) 05/24/23 14:20 Urine WBC 3-5 /HPF (0-5) 05/24/23 14:20 Ur Squamous Epith Cells Rare /HPF (NEGATIVE) 05/24/23 14:20 Ur Renal Epithelial Cell Rare /HPF (NEGATIVE) 05/24/23 14:20 Amorphous Sediment Trace /HPF (NEGATIVE) 05/24/23 14:20 Urine Bacteria Trace /HPF (NEGATIVE) 05/24/23 14:20 Hyaline Casts Moderate /LPF (NEGATIVE) 05/24/23 14:20 Granular Casts Rare /LPF (NEGATIVE) 05/24/23 14:20 Ur Culture Indicated? No/not indicated 05/24/23 14:20 - Plan (1) Pneumonia Status: Acute Qualifiers: Pneumonia type: due to unspecified organism Laterality: right Lung location: lower lobe of lung Qualified Code(s): J18.9 - Pneumonia, unspecified organism Plan: RESPIRATORY THERAPY, BIPAP/SUPPLEMENTAL OXYGEN, D51/2 NS AT KVO, LEVAQUIN 500MG IV DAILY, FORTAZ 1 G IV Q8H, SOLU-MEDROL 80MG IV Q8H, MORPHINE SULFATE 2MG IV Q4H PRN, DUONEBS Q6H, PULMICORT NEBS BID, LOVENOX 30MG SC DAILY, OTBS ACHS, HUMULIN R SLIDING SCALE, KLONOPIN 0.5MG BID. RESUME HOME MEDS (2) COPD exacerbation Status: Acute (3) Respiratory failure with hypoxia and hypercapnia Status: Acute (4) Altered mental status Status: Acute Qualifiers: Altered mental status type: transient alteration of awareness Qualified Code(s): R40.4 - Transient alteration of awareness (5) GERD (gastroesophageal reflux disease) Status: Chronic Qualifiers: Esophagitis presence: esophagitis presence not specified Qualified Code(s): K21.9 - Gastro-esophageal reflux disease without esophagitis (6) Diabetes mellitus, type 2 Status: Chronic Qualifiers: Diabetes mellitus usp insulin use: with terminal makeup operator use Diabetes mellitus complication status: with hyperglycemia Qualified Code(s): E11.65 - Type 2 diabetes mellitus with hyperglycemia; Z79.4 - terminal makeup operator (current) use of insulin (7) Depressive disorder Status: Chronic (8) Essential hypertension Status: Chronic (9) Hypothyroidism Status: Chronic Qualifiers: Hypothyroidism type: acquired Qualified Code(s): E03.9 - Hypothyroidism, unspecified
[2023-05-26] MEDS: SINGULAIR TAB 10 MG PO SCH (21:21)
[2023-05-26] MEDS: CRESTOR TAB 10 MG PO SCH (21:22)
[2023-05-26] MEDS: LEVEMIR SC SCH (21:24)
[2023-05-26] MEDS: SNACK - Diabetic Appropriate PO SCH (21:40)
[2023-05-27] MEDS: DUONEB 0.5 MG/3 MG (3 mL) NEB SCH ×5 (00:05→17:02)
[2023-05-27 05:19] LABS: ALANINE AMINOTRANSFERASE 24 Units/L (12-78); ALBUMIN 2.2 g/dL (3.4-5.0); ALKALINE PHOSPHATASE 129 Units/L (46-116); ASPARTATE AMINO TRANSFERASE 24 Units/L (15-37); BLOOD UREA NITROGEN 34 mg/dL (7-18); CALCIUM 8.2 mg/dL (8.5-10.1); CARBON DIOXIDE 36.8 mmol/L (21-32); CHLORIDE 104 mmol/L (98-107); COR CA(FOR HYPOALB) 9.6 mg/dL (8.5-10.1); COR NA(FOR HYPERGLY) 145 mmol/L (136-145); CREATININE 1.08 mg/dL (0.55-1.02); GLUCOSE 285 mg/dL (65-99); SODIUM 141 mmol/L (136-145); TOTAL PROTEIN 6.8 g/dL (6.4-8.2); eGFR NON BLACK RACES 53 (>60)
[2023-05-27 05:23] LABS: POTASSIUM 5.2 mmol/L (3.5-5.1)
[2023-05-27 05:33] LABS: BASOPHILS % (AUTO) 0.1 % (0.2-1.0); HEMATOCRIT 29.7 % (36.0-47.0); HEMOGLOBIN 9.1 g/dL (12.0-16.0); LYMPHOCYTES # (AUTO) 0.5 X10^3/uL (1.3-2.9); LYMPHOCYTES % (AUTO) 4.7 % (21.0-51.0); MEAN CORPUSCULAR HEMOGLOBIN 26.5 pg (27.0-34.0); MEAN CORPUSCULAR HGB CONC 30.7 g/dL (33.0-35.0); MEAN CORPUSCULAR VOLUME 86.2 fL (80.0-100.0); MEAN PLATELET VOLUME 8.9 fL (7.4-11.0); MONOCYTES # (AUTO) 0.3 x10^3/uL (0.3-0.8); MONOCYTES % (AUTO) 2.9 % (0.0-13.0); NEUTROPHILS % (AUTO) 92.3 % (42.0-75.0); PLATELET COUNT 334 X10^3/uL (150.0-450.0); RED BLOOD COUNT 3.45 X10^6/uL (3.5-5.4); RED CELL DISTRIBUTION WIDTH 18.5 % (11.6-16.5); WHITE BLOOD COUNT 9.8 X10^3/uL (3.6-10.0)
[2023-05-27] MEDS: BUSPAR PO SCH ×3 (05:39→21:18)
[2023-05-27] MEDS: SOLU-Medrol 40 MG VIAL IVP SCH ×3 (05:39→21:16)
[2023-05-27] MEDS: NovoLIN R (or HumuLIN R) SUBCUT PRN ×3 (05:40→21:19)
[2023-05-27 05:48] LABS: ANISOCYTOSIS SLIGHT; HYPOCHROMASIA SLIGHT; PLATELET MORPHOLOGY COMMENT NORMAL (NORMAL)
[2023-05-27 05:54] LABS: ABG HCO3 35.3 mmol/L (22-26)
--- NOTE | 2023-05-27 07:43 | RAD ---
EXAM:CHEST, 1 VIEWHISTORY:SOB ;COMPARISON:1 day prior.TECHNIQUE:AP view of the chestFINDINGS:Right chest wall port with tip in good position. Status post median sternotomy. Cardiac silhouette is mildly enlarged but stable. Stable moderate right pleural effusion. Small left pleural effusion. Associated bibasilar opacities appears similar. No pneumothorax.IMPRESSION:No significant change compared to prior radiograph. Right worse than left pleural effusions. Associated opacities may represent atelectasis or infiltrate.THIS IS AN ELECTRONICALLY VERIFIED FINAL [id number]/[id number] 7:39 AM - Electronically signed by Law Obando MD
[2023-05-27] MEDS ORDERED: GLUCOPHAGE ONE ×2 (08:05→20:49)
[2023-05-27] MEDS ORDERED: LEXAPRO ONE (08:06)
[2023-05-27] MEDS: FORTAZ or TAZICEF VIAL INJ 1 G in NS 100 ML IV 100 ML IV SCH ×2 (08:11→21:16)
[2023-05-27] MEDS: LEVAQUIN PREMIX IV 250 MG 250 MG/50 ML BAG IV SCH (08:12)
[2023-05-27] MEDS: NORCO 10/325 TAB PO PRN ×2 (08:12→21:18)
[2023-05-27] MEDS: KLONOPIN TAB 0.5 MG PO SCH ×2 (08:12→21:15)
[2023-05-27] MEDS: NEURONTIN CAP 400 MG PO SCH ×2 (08:13→21:14)
[2023-05-27] MEDS: LOPRESSOR TAB 25 MG PO SCH ×2 (08:13→21:30)
[2023-05-27] MEDS: PROTONIX TAB 40 MG PO SCH (08:13)
[2023-05-27] MEDS: ACTOS PO SCH (08:13)
[2023-05-27] MEDS: LEXAPRO PO SCH (08:13)
[2023-05-27] MEDS: LINZESS PO SCH (08:13)
[2023-05-27] MEDS: GLUCOPHAGE PO SCH ×2 (08:14→21:18)
[2023-05-27] MEDS: ASPIRIN EC 81 MG PO SCH (08:14)
[2023-05-27] MEDS: LASIX PO SCH (08:14)
[2023-05-27] MEDS: COLACE CAP 100 MG PO SCH (08:14)
[2023-05-27] MEDS: SYNTHROID 88 mcg TAB PO SCH (08:14)
[2023-05-27] MEDS: WELLBUTRIN XL 150 MG (DAILY) PO SCH (08:14)
[2023-05-27] MEDS: PATIENT'S HOME MEDICATION (Empagliflozin 25 mg Tablet) PO SCH (08:15)
[2023-05-27] MEDS: LOVENOX INJ 30 MG SYR SC SCH (08:15)
[2023-05-27] MEDS: FLONASE NASAL SPRAY ENOSTRIL SCH (08:17)
[2023-05-27] MEDS: VOLTAREN 1 % GEL MULTI DOSE TUBE TOP SCH ×2 (08:17→21:29)
[2023-05-27] MEDS: PULMICORT NEB TX 0.5 MG NEB SCH ×2 (08:39→21:50)
[2023-05-27] MEDS: D5 1/2 NS 1,000 ML 1,000 ML IV SCH (09:05)
--- NOTE | 2023-05-27 14:36 | PCM.PROG ---
Progress Note Progress Note for Day of Date of Exam: 05/27/23 Subjective Subjective: IS CURRENTLY INPATIENT STATUS FOR TREATMENT OF PNEUMONIA, COPD EXACERBATION, RESPIRATORY FAILURE WITH HYPOXIA AND HYPERCAPNIA. SHE HAS A PMH OF COPD, DM II, HYPERLIPIDEMIA, RLS, GERD, ALLERGIC RHINITIS, HTN, HYPOTHYROIDISM, CHF, DEPRESSION. SHE IS A RESIDENT OF [facility]. TODAY, SHE IS LYING IN BED WITH EYES CLOSED ON MORNING ROUNDS. SHE AWAKENS AND RESPONDS APPROPRIATELY TO VERBAL STIMULI. SHE CONTINUES TO COMPLAIN OF SHORTNESS OF BREATH THIS MORNING, BUT DOES ADMIT TO SLIGHT IMPROVEMENT IN SYMPTOMS THIS MORNING. SHE REMAINS ON OXYGEN VIA NASAL CANNULA AT 4 LPM THIS MORNING. HER OXYGEN SATURATIONS HAVE REMAINED IN THE 90s THIS MORNING. BUN/CREAT 34/1.08 ON AM LABS. PT IS ON IV LEVAQUIN AND FORTAZ. Past Medical Family Social History Past Med/Fam/Surg Hx: No changes since H&P Allergies: Allergies No Known Allergies [NKA] Allergy (Verified 01/28/22 09:59) Review of Systems ROS: No change since H&P Vital Signs and I&O's Vital Signs: Vital Signs Temperature 97.9 F Pulse Rate 62 Pulse Rate 61 Pulse Rate 59 Pulse Rate 59 Pulse Rate 62 Pulse Rate 63 Pulse Rate 63 Pulse Rate 63 Pulse Rate 63 Pulse Rate 65 Pulse Rate 59 Respiratory Rate 20 Respiratory Rate 23 Respiratory Rate 21 Respiratory Rate 21 Respiratory Rate 16 Respiratory Rate 15 Respiratory Rate 18 Respiratory Rate 16 Respiratory Rate 16 Respiratory Rate 18 Respiratory Rate 23 Respiratory Rate 23 Blood Pressure 146/67 Blood Pressure 141/65 Blood Pressure 142/67 Blood Pressure 142/67 Blood Pressure 142/67 Blood Pressure 142/64 Blood Pressure 159/72 Blood Pressure 118/63 Blood Pressure 118/63 Blood Pressure 118/63 Blood Pressure 124/59 O2 Sat by Pulse Oximetry 89 O2 Sat by Pulse Oximetry 94 O2 Sat by Pulse Oximetry 91 O2 Sat by Pulse Oximetry 95 O2 Sat by Pulse Oximetry 100 O2 Sat by Pulse Oximetry 100 O2 Sat by Pulse Oximetry 100 O2 Sat by Pulse Oximetry 95 O2 Sat by Pulse Oximetry 99 O2 Sat by Pulse Oximetry 97 O2 Sat by Pulse Oximetry 100 Intake and Output: Intake & Output 05/25/23 05/26/23 05/27/23 05/28/23 11:59 11:59 11:59 11:59 Intake Total 1183 / 1183 1567 / 1567 1649 / 1649 Output Total 800 / 800 Balance 1183 / 1183 1567 / 1567 849 / 849 Physical Exam Oriented: Normal Eyes: Normal Ear: Normal Nose: Normal Throat: Normal Respiratory: Generalized and Wheezes Cardiovascular: Normal : Normal Auscultation: Bowel Sounds: Normal Tenderness: Normal Skin: Normal Musculoskeletal: Normal and Motor Deficit (MILD DIFFUSE MUSCLE WEAKNESS) Psychiatric: Normal Mood Description: Flat Affect: Flat Speech Pattern: Clear and Appropriate Laboratory and Diagnostics 05/27/23 04:28 05/27/23 04:28 Labs: 05/24/23 12:27 Blood Blood Culture Gram Stain - Final 05/24/23 12:27 Blood Blood Culture - Final Staphylococcus Epidermidis 05/24/23 12:20 Blood Blood Culture Gram Stain - Final 05/24/23 12:20 Blood Blood Culture - Final Staphylococcus Epidermidis Laboratory WBC 9.8 X10^3/uL (3.6-10.0) 05/27/23 04:28 RBC 3.45 X10^6/uL (3.5-5.4) L 05/27/23 04:28 Hgb 9.1 g/dL (12.0-16.0) L 05/27/23 04:28 Hct 29.7 % (36.0-47.0) L 05/27/23 04:28 MCV 86.2 fL (80.0-100.0) 05/27/23 04:28 MCH 26.5 pg (27.0-34.0) L 05/27/23 04:28 MCHC 30.7 g/dL (33.0-35.0) L 05/27/23 04:28 RDW 18.5 % (11.6-16.5) H 05/27/23 04:28 Plt Count 334 X10^3/uL (150.0-450.0) 05/27/23 04:28 Plt Count Comment Adequate (ADEQUATE) 05/27/23 04:28 MPV 8.9 fL (7.4-11.0) 05/27/23 04:28 Neut % (Auto) 92.3 % (42.0-75.0) H 05/27/23 04:28 Lymph % (Auto) 4.7 % (21.0-51.0) L 05/27/23 04:28 [place] % (Auto) 2.9 % (0.0-13.0) 05/27/23 04:28 Eos % (Auto) 0.0 % (0.9-2.9) L 05/27/23 04:28 Baso % (Auto) 0.1 % (0.2-1.0) L 05/27/23 04:28 Neut # (Auto) 9.0 x10^3/uL (2.2-4.8) H 05/27/23 04:28 Lymph # (Auto) 0.5 X10^3/uL (1.3-2.9) L 05/27/23 04:28 [place] # (Auto) 0.3 x10^3/uL (0.3-0.8) 05/27/23 04:28 Eos # (Auto) 0.0 x10^3/uL (0.0-0.2) 05/27/23 04:28 Baso # (Auto) 0.0 X10^3/uL (0.0-0.1) 05/27/23 04:28 Absolute Nucleated RBC 0.1 /100WBC 05/27/23 04:28 Total Counted 100 05/27/23 04:28 Neutrophils % (Manual) 87 % (39-76) H 05/27/23 04:28 Lymphocytes % (Manual) 9 % (13-43) L 05/27/23 04:28 Monocytes % (Manual) 3 % (4-9) L 05/27/23 04:28 Eosinophils % (Manual) 1 % (0-6) 05/27/23 04:28 Plt Morphology Comment Normal (NORMAL) 05/27/23 04:28 RBC Morphology Abnormal (NORMAL) A 05/27/23 04:28 Hypochromasia Slight A 05/27/23 04:28 Anisocytosis Slight A 05/27/23 04:28 Sample Site Lb 05/27/23 05:00 ABG pH 7.370 (7.35-7.45) 05/27/23 05:00 ABG pCO2 61.0 mmHg (35.0-45.0) H* 05/27/23 05:00 ABG pO2 69.0 mmHg (80.0-100.0) L 05/27/23 05:00 ABG HCO3 35.3 mmol/L (22-26) H* 05/27/23 05:00 ABG O2 Saturation 93.0 % (90-100) 05/27/23 05:00 ABG Base Excess 8.0 mmol/L (-2.0-2.0) H 05/27/23 05:00 Nikolay Test Na 05/27/23 05:00 A-a Gradient 111.0 mmHg 05/27/23 05:00 FiO2 36.0 05/27/23 05:00 Blood Gas Comments Caden well ssw 05/27/23 05:00 Sodium 141 mmol/L (136-145) 05/27/23 04:28 Corrected Sodium 145 mmol/L (136-145) 05/27/23 04:28 Potassium 5.2 mmol/L (3.5-5.1) H 05/27/23 04:28 Chloride 104 mmol/L (98-107) 05/27/23 04:28 Carbon Dioxide 36.8 mmol/L (21-32) H 05/27/23 04:28 BUN 34 mg/dL (7-18) H 05/27/23 04:28 Creatinine 1.08 mg/dL (0.55-1.02) H 05/27/23 04:28 Est GFR (MDRD) Af Amer > 60 (>60) 05/27/23 04:28 Est GFR (MDRD) Non-Af 53 (>60) L 05/27/23 04:28 Glucose 285 mg/dL (65-99) H 05/27/23 04:28 POC Glucose (mg/dL) 321 mg/dL (65-99) H 05/27/23 11:46 Lactic Acid 0.8 mmol/L (0.4-2.0) 05/24/23 12:27 Calcium 8.2 mg/dL (8.5-10.1) L 05/27/23 04:28 Corrected Calcium 9.6 mg/dL (8.5-10.1) 05/27/23 04:28 Magnesium 2.3 mg/dL (2.0-2.9) 05/25/23 04:04 Total Bilirubin 0.20 mg/dL (0.2-1.0) 05/27/23 04:28 AST 24 Units/L (15-37) 05/27/23 04:28 ALT 24 Units/L (12-78) 05/27/23 04:28 Alkaline Phosphatase 129 Units/L (46-116) H 05/27/23 04:28 Total Protein 6.8 g/dL (6.4-8.2) 05/27/23 04:28 Albumin 2.2 g/dL (3.4-5.0) L 05/27/23 04:28 Globulin 4.6 g/dL (2.5-4.5) H 05/27/23 04:28 Albumin/Globulin Ratio 0.5 Ratio (1.1-2.1) L 05/27/23 04:28 Specimen Type Catherized urine 05/24/23 14:20 Urine Color Yellow (YELLOW) 05/24/23 14:20 Urine Appearance Clear (CLEAR) 05/24/23 14:20 Urine pH 6.0 (5.0 - 8.0) 05/24/23 14:20 Ur Specific [place] 1.020 (1.000-1.030) 05/24/23 14:20 Urine Protein 2+ (NEGATIVE) 05/24/23 14:20 Urine Glucose (UA) 4+ (NEGATIVE) 05/24/23 14:20 Urine Ketones Negative (NEGATIVE) 05/24/23 14:20 Urine Blood 1+ (NEGATIVE) 05/24/23 14:20 Urine Nitrite Negative (NEGATIVE) 05/24/23 14:20 Urine Bilirubin Negative (NEGATIVE) 05/24/23 14:20 Urine Urobilinogen Normal (NORMAL) 05/24/23 14:20 Ur Leukocyte Esterase 2+ (NEGATIVE) 05/24/23 14:20 Urine RBC 0-2 /HPF (0-3) 05/24/23 14:20 Urine WBC 3-5 /HPF (0-5) 05/24/23 14:20 Ur Squamous Epith Cells Rare /HPF (NEGATIVE) 05/24/23 14:20 Ur Renal Epithelial Cell Rare /HPF (NEGATIVE) 05/24/23 14:20 Amorphous Sediment Trace /HPF (NEGATIVE) 05/24/23 14:20 Urine Bacteria Trace /HPF (NEGATIVE) 05/24/23 14:20 Hyaline Casts Moderate /LPF (NEGATIVE) 05/24/23 14:20 Granular Casts Rare /LPF (NEGATIVE) 05/24/23 14:20 Ur Culture Indicated? No/not indicated 05/24/23 14:20 Plan (1) Pneumonia: Status: Acute Qualifiers: Pneumonia type: due to unspecified organism Laterality: right Lung location: lower lobe of lung Qualified Code(s): J18.9 - Pneumonia, unspecified organism Plan: RESPIRATORY THERAPY, BIPAP/SUPPLEMENTAL OXYGEN, D51/2 NS AT KVO, LEVAQUIN 500MG IV DAILY, FORTAZ 1 G IV Q8H, SOLU-MEDROL 80MG IV Q8H, MORPHINE SULFATE 2MG IV Q4H PRN, DUONEBS Q6H, PULMICORT NEBS BID, LOVENOX 30MG SC DAILY, OTBS ACHS, HUMULIN R SLIDING SCALE, KLONOPIN 0.5MG BID. RESUME HOME MEDS (2) COPD exacerbation: Status: Acute (3) Respiratory failure with hypoxia and hypercapnia: Status: Acute (4) Altered mental status: Status: Acute Qualifiers: Altered mental status type: transient alteration of awareness Qualified Code(s): R40.4 - Transient alteration of awareness (5) GERD (gastroesophageal reflux disease): Status: Chronic Qualifiers: Esophagitis presence: esophagitis presence not specified Qualified Code(s): K21.9 - Gastro-esophageal reflux disease without esophagitis (6) Diabetes mellitus, type 2: Status: Chronic Qualifiers: Diabetes mellitus alf insulin use: with alf use Diabetes mellitus complication status: with hyperglycemia Qualified Code(s): E11.65 - Type 2 diabetes mellitus with hyperglycemia; 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
[2023-05-27] MEDS: CRESTOR TAB 10 MG PO SCH (21:14)
[2023-05-27] MEDS: SINGULAIR TAB 10 MG PO SCH (21:15)
[2023-05-27] MEDS: LEVEMIR SC SCH (21:20)
[2023-05-27] MEDS: SNACK - Diabetic Appropriate PO SCH (21:27)
[2023-05-28] MEDS: DUONEB 0.5 MG/3 MG (3 mL) NEB SCH ×4 (00:25→16:22)
[2023-05-28 05:20] LABS: BASOPHILS % (AUTO) 0.1 % (0.2-1.0); HEMATOCRIT 28.3 % (36.0-47.0); HEMOGLOBIN 8.9 g/dL (12.0-16.0); LYMPHOCYTES # (AUTO) 0.3 X10^3/uL (1.3-2.9); LYMPHOCYTES % (AUTO) 2.5 % (21.0-51.0); MEAN CORPUSCULAR HEMOGLOBIN 27.2 pg (27.0-34.0); MEAN CORPUSCULAR HGB CONC 31.4 g/dL (33.0-35.0); MEAN CORPUSCULAR VOLUME 86.5 fL (80.0-100.0); MEAN PLATELET VOLUME 8.5 fL (7.4-11.0); MONOCYTES # (AUTO) 0.5 x10^3/uL (0.3-0.8); MONOCYTES % (AUTO) 4.5 % (0.0-13.0); NEUTROPHILS # (AUTO) 10.5 x10^3/uL (2.2-4.8); NEUTROPHILS % (AUTO) 92.9 % (42.0-75.0); PLATELET COUNT 358 X10^3/uL (150.0-450.0); RED BLOOD COUNT 3.27 X10^6/uL (3.5-5.4); RED CELL DISTRIBUTION WIDTH 18.8 % (11.6-16.5); WHITE BLOOD COUNT 11.3 X10^3/uL (3.6-10.0)
[2023-05-28 05:40] LABS: ALANINE AMINOTRANSFERASE 30 Units/L (12-78); ALBUMIN 2.2 g/dL (3.4-5.0); ALKALINE PHOSPHATASE 136 Units/L (46-116); ASPARTATE AMINO TRANSFERASE 20 Units/L (15-37); BLOOD UREA NITROGEN 33 mg/dL (7-18); CARBON DIOXIDE 36.3 mmol/L (21-32); CHLORIDE 103 mmol/L (98-107); COR CA(FOR HYPOALB) 9.4 mg/dL (8.5-10.1); COR NA(FOR HYPERGLY) 147 mmol/L (136-145); CREATININE 1.04 mg/dL (0.55-1.02); GLUCOSE 295 mg/dL (65-99); POTASSIUM 4.8 mmol/L (3.5-5.1); SODIUM 142 mmol/L (136-145); TOTAL PROTEIN 6.8 g/dL (6.4-8.2); eGFR NON BLACK RACES 56 (>60)
[2023-05-28] MEDS: BUSPAR PO SCH ×3 (05:40→21:19)
[2023-05-28] MEDS: SOLU-Medrol 40 MG VIAL IVP SCH ×3 (05:40→21:19)
[2023-05-28 05:41] LABS: ANISOCYTOSIS SLIGHT; PLATELET MORPHOLOGY COMMENT NORMAL (NORMAL)
[2023-05-28] MEDS: NovoLIN R (or HumuLIN R) SUBCUT PRN ×4 (05:41→20:36)
[2023-05-28] MEDS ORDERED: LEXAPRO ONE (08:32)
[2023-05-28] MEDS ORDERED: GLUCOPHAGE ONE ×2 (08:32→19:54)
[2023-05-28] MEDS: PULMICORT NEB TX 0.5 MG NEB SCH ×2 (08:35→21:19)
[2023-05-28] MEDS: MORPHINE SULFATE INJ 2 MG INJ IVP PRN (09:02)
[2023-05-28] MEDS: ASPIRIN EC 81 MG PO SCH (09:05)
[2023-05-28] MEDS: NEURONTIN CAP 400 MG PO SCH ×2 (09:05→20:35)
[2023-05-28] MEDS: LINZESS PO SCH (09:06)
[2023-05-28] MEDS: COLACE CAP 100 MG PO SCH (09:07)
[2023-05-28] MEDS: ACTOS PO SCH (09:08)
[2023-05-28] MEDS: LEXAPRO PO SCH ×2 (09:08→09:09)
[2023-05-28] MEDS: LASIX PO SCH (09:10)
[2023-05-28] MEDS: KLONOPIN TAB 0.5 MG PO SCH ×2 (09:10→20:33)
[2023-05-28] MEDS: PROTONIX TAB 40 MG PO SCH (09:10)
[2023-05-28] MEDS: SYNTHROID 88 mcg TAB PO SCH (09:10)
[2023-05-28] MEDS: LOPRESSOR TAB 25 MG PO SCH ×2 (09:10→20:34)
[2023-05-28] MEDS: FORTAZ or TAZICEF VIAL INJ 1 G in NS 100 ML IV 100 ML IV SCH ×2 (09:13→20:31)
[2023-05-28] MEDS: LEVAQUIN PREMIX IV 250 MG 250 MG/50 ML BAG IV SCH (09:14)
[2023-05-28] MEDS: FLONASE NASAL SPRAY ENOSTRIL SCH (09:14)
[2023-05-28] MEDS: LOVENOX INJ 30 MG SYR SC SCH (09:15)
[2023-05-28] MEDS: GLUCOPHAGE PO SCH ×2 (09:15→20:33)
[2023-05-28] MEDS: VOLTAREN 1 % GEL MULTI DOSE TUBE TOP SCH ×2 (09:16→21:19)
[2023-05-28] MEDS: WELLBUTRIN XL 150 MG (DAILY) PO SCH (09:17)
[2023-05-28] MEDS: PATIENT'S HOME MEDICATION (Empagliflozin 25 mg Tablet) PO SCH (10:00)
--- NOTE | 2023-05-28 10:20 | RAD ---
EXAM:AP chestHISTORY:Short of breathCOMPARISON:05/27/2023FINDINGS:Estefani lar appearance of cardiomegaly/sternal wires, asymmetric pleural effusions right larger than left. Underlying airspace disease may be present in the obscured right lower lobe. No change in position of the right-sided port.IMPRESSION:No change/no new abnormality since 1 day prior.THIS IS AN ELECTRONICALLY VERIFIED FINAL [id number]/28/2023 10:16 AM - Electronically signed by Vladimir Ag MD
[2023-05-28] MEDS: MICRO K EXTEN CAP 10 MEQ PO SCH ×2 (10:22→20:34)
[2023-05-28] MEDS: LASIX IVP SCH ×2 (10:22→16:47)
[2023-05-28 11:23] LABS: BILIRUBIN,URINE NEGATIVE (NEGATIVE); BLOOD/HEMOGLOBIN,URINE 1+ (NEGATIVE); GLUCOSE, URINE 4+ (NEGATIVE); KETONES,URINE NEGATIVE (NEGATIVE); LEUKOCYTE ESTERASE ,URINE NEGATIVE (NEGATIVE); NITRITES,URINE NEGATIVE (NEGATIVE); PROTEIN,URINE 2+ (NEGATIVE); UROBILINOGEN,URINE NORMAL (NORMAL)
[2023-05-28 11:32] LABS: APPEARANCE,URINE CLEAR (CLEAR); COLOR,URINE PALE YELLOW (YELLOW)
[2023-05-28 11:33] LABS: BACTERIA,URINE TRACE /HPF (NEGATIVE); RBC,URINE 0-2 /HPF (0-3); SQUAMOUS EPITHELIAL CELL,UR RARE /HPF (NEGATIVE)
[2023-05-28] MEDS: D5 1/2 NS 1,000 ML 1,000 ML IV SCH ×3 (12:18→16:08)
[2023-05-28] MEDS: SNACK - Diabetic Appropriate PO SCH (20:05)
[2023-05-28] MEDS: CRESTOR TAB 10 MG PO SCH (20:30)
[2023-05-28] MEDS: LEVEMIR SC SCH (20:33)
[2023-05-28] MEDS: SINGULAIR TAB 10 MG PO SCH (20:35)
[2023-05-29] MEDS: DUONEB 0.5 MG/3 MG (3 mL) NEB SCH ×4 (00:42→17:36)
[2023-05-29] MEDS: SOLU-Medrol 40 MG VIAL IVP SCH ×3 (05:06→21:19)
[2023-05-29] MEDS: BUSPAR PO SCH ×3 (05:06→21:19)
[2023-05-29 05:23] LABS: BASOPHILS # (AUTO) 0.1 X10^3/uL (0.0-0.1); EOSINOPHILS % (AUTO) 0.2 % (0.9-2.9); HEMATOCRIT 28.9 % (36.0-47.0); HEMOGLOBIN 9.2 g/dL (12.0-16.0); LYMPHOCYTES # (AUTO) 0.4 X10^3/uL (1.3-2.9); LYMPHOCYTES % (AUTO) 4.1 % (21.0-51.0); MEAN CORPUSCULAR HGB CONC 31.8 g/dL (33.0-35.0); MEAN CORPUSCULAR VOLUME 84.9 fL (80.0-100.0); MEAN PLATELET VOLUME 8.8 fL (7.4-11.0); MONOCYTES # (AUTO) 0.3 x10^3/uL (0.3-0.8); MONOCYTES % (AUTO) 2.6 % (0.0-13.0); NEUTROPHILS # (AUTO) 9.3 x10^3/uL (2.2-4.8); NEUTROPHILS % (AUTO) 92.1 % (42.0-75.0); PLATELET COUNT 330 X10^3/uL (150.0-450.0); RED CELL DISTRIBUTION WIDTH 18.2 % (11.6-16.5); WHITE BLOOD COUNT 10.1 X10^3/uL (3.6-10.0)
[2023-05-29] MEDS: NovoLIN R (or HumuLIN R) SUBCUT PRN ×2 (05:31→16:48)
[2023-05-29 05:35] LABS: ALANINE AMINOTRANSFERASE 52 Units/L (12-78); ALKALINE PHOSPHATASE 128 Units/L (46-116); ASPARTATE AMINO TRANSFERASE 57 Units/L (15-37); BLOOD UREA NITROGEN 36 mg/dL (7-18); CARBON DIOXIDE 38.8 mmol/L (21-32); CHLORIDE 100 mmol/L (98-107); COR CA(FOR HYPOALB) 9.6 mg/dL (8.5-10.1); COR NA(FOR HYPERGLY) 145 mmol/L (136-145); CREATININE 1.08 mg/dL (0.55-1.02); GLUCOSE 238 mg/dL (65-99); POTASSIUM 4.4 mmol/L (3.5-5.1); SODIUM 142 mmol/L (136-145); TOTAL PROTEIN 6.3 g/dL (6.4-8.2); eGFR NON BLACK RACES 53 (>60)
[2023-05-29 05:46] LABS: PLATELET MORPHOLOGY COMMENT NORMAL (NORMAL)
[2023-05-29 05:47] LABS: ANISOCYTOSIS SLIGHT
--- NOTE | 2023-05-29 06:07 | RAD ---
EXAM:CHEST, 1 VIEWHISTORY:chf, pneumonia; copdCOMPARISON:05/28/2023FINDINGS:Stable cardiomediastinal silhouette and right subclavian Port-A-Cath. Large right pleural effusion with increased right lung opacity. Decreased left pleural effusion. No visible pneumothorax.IMPRESSION:Increasing right lung opacity with large right pleural effusion.THIS IS AN ELECTRONICALLY VERIFIED FINAL [id number]/29/2023 6:03 AM - Electronically signed by Juan Luis Joel MD
[2023-05-29] MEDS ORDERED: GLUCOPHAGE ONE ×2 (08:09→19:43)
[2023-05-29] MEDS ORDERED: LEXAPRO ONE (08:10)
--- NOTE | 2023-05-29 08:16 | RAD ---
EXAM:AP chestHISTORY:Short of breathCOMPARISON:05/28/2023FINDINGS:Hear t size remains prominent with no change in extent or distribution of large right pleural effusion obscuring the right base. Stable position of subclavian port. No new abnormality noted.IMPRESSION:No change.THIS IS AN ELECTRONICALLY VERIFIED FINAL [id number]/29/2023 8:06 AM - Electronically signed by Vladimir Ag MD
[2023-05-29] MEDS: PATIENT'S HOME MEDICATION (Empagliflozin 25 mg Tablet) PO SCH (08:34)
[2023-05-29] MEDS: NEURONTIN CAP 400 MG PO SCH ×2 (08:34→21:18)
[2023-05-29] MEDS: LOVENOX INJ 30 MG SYR SC SCH (08:34)
[2023-05-29] MEDS: LINZESS PO SCH (08:34)
[2023-05-29] MEDS: LEVAQUIN PREMIX IV 250 MG 250 MG/50 ML BAG IV SCH (08:35)
[2023-05-29] MEDS: LEXAPRO PO SCH (08:35)
[2023-05-29] MEDS: GLUCOPHAGE PO SCH ×2 (08:35→21:18)
[2023-05-29] MEDS: LASIX PO SCH (08:36)
[2023-05-29] MEDS: KLONOPIN TAB 0.5 MG PO SCH ×2 (08:36→21:18)
[2023-05-29] MEDS: SYNTHROID 88 mcg TAB PO SCH (08:36)
[2023-05-29] MEDS: COLACE CAP 100 MG PO SCH (08:36)
[2023-05-29] MEDS: ASPIRIN EC 81 MG PO SCH (08:36)
[2023-05-29] MEDS: FORTAZ or TAZICEF VIAL INJ 1 G in NS 100 ML IV 100 ML IV SCH ×2 (08:36→21:19)
[2023-05-29] MEDS: WELLBUTRIN XL 150 MG (DAILY) PO SCH (08:36)
[2023-05-29] MEDS: PROTONIX TAB 40 MG PO SCH (08:36)
[2023-05-29] MEDS: LOPRESSOR TAB 25 MG PO SCH ×2 (08:36→21:15)
[2023-05-29] MEDS: ACTOS PO SCH (08:36)
[2023-05-29] MEDS: FLONASE NASAL SPRAY ENOSTRIL SCH (08:37)
[2023-05-29] MEDS: VOLTAREN 1 % GEL MULTI DOSE TUBE TOP SCH ×2 (08:38→21:15)
[2023-05-29] MEDS: PULMICORT NEB TX 0.5 MG NEB SCH ×2 (09:28→20:10)
[2023-05-29] MEDS: LASIX IVP SCH ×2 (11:31→16:48)
[2023-05-29] MEDS: D5 1/2 NS 1,000 ML 1,000 ML IV SCH (16:45)
[2023-05-29] MEDS: SNACK - Diabetic Appropriate PO SCH (20:00)
[2023-05-29] MEDS: LEVEMIR SC SCH (21:00)
[2023-05-29] MEDS: CRESTOR TAB 10 MG PO SCH (21:17)
[2023-05-29] MEDS: SINGULAIR TAB 10 MG PO SCH (21:17)
[2023-05-30] MEDS: DUONEB 0.5 MG/3 MG (3 mL) NEB SCH ×5 (00:01→17:22)
[2023-05-30 04:49] LABS: BASOPHILS % (AUTO) 0 % (0.2-1.0); HEMATOCRIT 31.3 % (36.0-47.0); LYMPHOCYTES # (AUTO) 0.5 X10^3/uL (1.3-2.9); LYMPHOCYTES % (AUTO) 4.3 % (21.0-51.0); MEAN CORPUSCULAR HGB CONC 31.9 g/dL (33.0-35.0); MEAN CORPUSCULAR VOLUME 84.7 fL (80.0-100.0); MEAN PLATELET VOLUME 8.8 fL (7.4-11.0); MONOCYTES # (AUTO) 0.2 x10^3/uL (0.3-0.8); MONOCYTES % (AUTO) 2.3 % (0.0-13.0); NEUTROPHILS # (AUTO) 10.1 x10^3/uL (2.2-4.8); NEUTROPHILS % (AUTO) 93.4 % (42.0-75.0); PLATELET COUNT 331 X10^3/uL (150.0-450.0); RED CELL DISTRIBUTION WIDTH 17.9 % (11.6-16.5); WHITE BLOOD COUNT 10.8 X10^3/uL (3.6-10.0)
[2023-05-30 05:00] LABS: ALANINE AMINOTRANSFERASE 41 Units/L (12-78); ALBUMIN 2.1 g/dL (3.4-5.0); ALKALINE PHOSPHATASE 132 Units/L (46-116); ASPARTATE AMINO TRANSFERASE 22 Units/L (15-37); BLOOD UREA NITROGEN 39 mg/dL (7-18); CALCIUM 7.9 mg/dL (8.5-10.1); CARBON DIOXIDE 42.4 mmol/L (21-32); CHLORIDE 100 mmol/L (98-107); COR CA(FOR HYPOALB) 9.4 mg/dL (8.5-10.1); COR NA(FOR HYPERGLY) 146 mmol/L (136-145); CREATININE 1.06 mg/dL (0.55-1.02); GLUCOSE 306 mg/dL (65-99); POTASSIUM 4.4 mmol/L (3.5-5.1); SODIUM 141 mmol/L (136-145); TOTAL PROTEIN 6.4 g/dL (6.4-8.2); eGFR NON BLACK RACES 55 (>60)
[2023-05-30 05:16] LABS: ANISOCYTOSIS SLIGHT; PLATELET MORPHOLOGY COMMENT NORMAL (NORMAL); STOMATOCYTES PRESENT
[2023-05-30] MEDS: NovoLIN R (or HumuLIN R) SUBCUT PRN ×4 (05:21→20:47)
[2023-05-30] MEDS: BUSPAR PO SCH ×3 (05:35→21:11)
[2023-05-30] MEDS: SOLU-Medrol 40 MG VIAL IVP SCH ×3 (05:36→21:11)
[2023-05-30] MEDS ORDERED: OMNIPAQUE 350 mg/mL 100 mL BTL 100 ML ONE (07:00)
--- NOTE | 2023-05-30 08:21 | CT ---
EXAM:CHEST WITH CONTRASTHISTORY:hypoxia, resp failure; Exacerbation copdCOMPARISON:Chest CT 09/28/2022, chest radiograph 05/29/2023TECHNIQUE:Multiple CT axial images of the chest were obtained with IV contrast. Coronal and sagittal images were reconstructed. Dose reduction techniques included Automated Exposure Control (AEC) and adjustment of mA and kV.FINDINGS:Cardiomegaly is present. Atherosclerotic calcification is present in the coronary arteries. The pulmonary artery and aorta have a normal caliber. No mediastinal mass or significant lymphadenopathy.The thyroid has a normal size and configuration. No axillary mass or significant axillary lymphadenopathy is identified.Moderate right and small left pleural effusions are present. Left effusion is slightly smaller. Right pleural fluid volume may be slightly larger and now has a loculated appearance as there are non dependent locations.Airspace opacity in the lungs mostly lies adjacent to the effusions and could be passive or compressive atelectasis. But there is an area of ground-glass opacity in the posterior right upper lobe which could be pneumonia.Surgical clips are present in the gallbladder fossa from a cholecystectomy.New compression fractures are present at T12 and T10. The T10 compression fracture measures about 10-20% of the height of the vertebra with no retropulsion of any bone fragment. The T12 compression fracture measures about 80% of the height of the vertebra and could be acute. Very slight retropulsion of the posterosuperior corner of the vertebra is identified but the AP canal at this location measures 10 mm.Median sternotomy fixation hardware is present.IMPRESSION:1. Larger right pleural effusion, now loculated2. Right upper lobe pneumonia3. Smaller left effusion4. New T10 and T12 compression fracturesTHIS IS AN ELECTRONICALLY VERIFIED FINAL REPORT05/30/2023 8:18 AM - Electronically signed by Nitesh Danielle MD
[2023-05-30] MEDS: PULMICORT NEB TX 0.5 MG NEB SCH ×2 (08:37→21:15)
[2023-05-30] MEDS ORDERED: GLUCOPHAGE ONE ×2 (08:59→19:56)
[2023-05-30] MEDS ORDERED: LEXAPRO ONE (09:00)
[2023-05-30] MEDS: FLONASE NASAL SPRAY ENOSTRIL SCH (09:12)
[2023-05-30] MEDS: ASPIRIN EC 81 MG PO SCH (09:14)
[2023-05-30] MEDS: ACTOS PO SCH (09:15)
[2023-05-30] MEDS: LASIX IVP SCH ×2 (09:20→16:32)
[2023-05-30] MEDS: LOVENOX INJ 30 MG SYR SC SCH (09:20)
[2023-05-30] MEDS: COLACE CAP 100 MG PO SCH (09:28)
[2023-05-30] MEDS: PROTONIX TAB 40 MG PO SCH (09:28)
[2023-05-30] MEDS: SYNTHROID 88 mcg TAB PO SCH (09:28)
[2023-05-30] MEDS: VOLTAREN 1 % GEL MULTI DOSE TUBE TOP SCH ×2 (09:29→21:10)
[2023-05-30] MEDS: FORTAZ or TAZICEF VIAL INJ 1 G in NS 100 ML IV 100 ML IV SCH ×2 (09:30→20:37)
[2023-05-30] MEDS: PATIENT'S HOME MEDICATION (Empagliflozin 25 mg Tablet) PO SCH (09:30)
[2023-05-30] MEDS: GLUCOPHAGE PO SCH ×2 (09:31→20:40)
[2023-05-30] MEDS: KLONOPIN TAB 0.5 MG PO SCH ×2 (09:31→20:41)
[2023-05-30] MEDS: LEXAPRO PO SCH (09:32)
[2023-05-30] MEDS: LASIX PO SCH (09:32)
[2023-05-30] MEDS: LEVAQUIN PREMIX IV 250 MG 250 MG/50 ML BAG IV SCH (09:32)
[2023-05-30] MEDS: LOPRESSOR TAB 25 MG PO SCH ×2 (09:33→20:44)
[2023-05-30] MEDS: LINZESS PO SCH (09:33)
[2023-05-30] MEDS: WELLBUTRIN XL 150 MG (DAILY) PO SCH (09:34)
[2023-05-30] MEDS: NS 1,000 ML IV 1,000 ML IV SCH (11:11)
[2023-05-30] MEDS: CRESTOR TAB 10 MG PO SCH (20:39)
[2023-05-30] MEDS: SINGULAIR TAB 10 MG PO SCH (20:43)
[2023-05-30] MEDS: SNACK - Diabetic Appropriate PO SCH (20:50)
[2023-05-30] MEDS: LEVEMIR SC SCH (21:10)
[2023-05-31] MEDS: DUONEB 0.5 MG/3 MG (3 mL) NEB SCH ×4 (00:10→17:38)
[2023-05-31 04:52] LABS: BASOPHILS % (AUTO) 0.1 % (0.2-1.0); EOSINOPHILS % (AUTO) 0.1 % (0.9-2.9); HEMATOCRIT 29.4 % (36.0-47.0); HEMOGLOBIN 9.3 g/dL (12.0-16.0); LYMPHOCYTES # (AUTO) 0.4 X10^3/uL (1.3-2.9); MEAN CORPUSCULAR HEMOGLOBIN 26.7 pg (27.0-34.0); MEAN CORPUSCULAR HGB CONC 31.8 g/dL (33.0-35.0); MEAN CORPUSCULAR VOLUME 83.8 fL (80.0-100.0); MEAN PLATELET VOLUME 8.7 fL (7.4-11.0); MONOCYTES # (AUTO) 0.6 x10^3/uL (0.3-0.8); MONOCYTES % (AUTO) 4.5 % (0.0-13.0); NEUTROPHILS # (AUTO) 11.4 x10^3/uL (2.2-4.8); NEUTROPHILS % (AUTO) 92.3 % (42.0-75.0); PLATELET COUNT 304 X10^3/uL (150.0-450.0); RED BLOOD COUNT 3.51 X10^6/uL (3.5-5.4); WHITE BLOOD COUNT 12.4 X10^3/uL (3.6-10.0)
[2023-05-31 04:59] LABS: ALANINE AMINOTRANSFERASE 69 Units/L (12-78); ALBUMIN 2.1 g/dL (3.4-5.0); ALKALINE PHOSPHATASE 127 Units/L (46-116); ASPARTATE AMINO TRANSFERASE 70 Units/L (15-37); BLOOD UREA NITROGEN 36 mg/dL (7-18); CALCIUM 7.8 mg/dL (8.5-10.1); CHLORIDE 98 mmol/L (98-107); COR CA(FOR HYPOALB) 9.3 mg/dL (8.5-10.1); COR NA(FOR HYPERGLY) 141 mmol/L (136-145); CREATININE 0.94 mg/dL (0.55-1.02); GLUCOSE 198 mg/dL (65-99); POTASSIUM 3.7 mmol/L (3.5-5.1); SODIUM 139 mmol/L (136-145); TOTAL PROTEIN 6.3 g/dL (6.4-8.2); eGFR NON BLACK RACES > 60 (>60)
[2023-05-31] MEDS: SOLU-Medrol 40 MG VIAL IVP SCH (05:00)
[2023-05-31] MEDS: BUSPAR PO SCH ×3 (05:21→21:58)
[2023-05-31] MEDS: NovoLIN R (or HumuLIN R) SUBCUT PRN ×3 (05:22→20:45)
[2023-05-31 05:37] LABS: ANISOCYTOSIS SLIGHT; HYPOCHROMASIA 1+; PLATELET MORPHOLOGY COMMENT NORMAL (NORMAL); STOMATOCYTES PRESENT
[2023-05-31] MEDS ORDERED: CONSULT PHARMACY - POTASSIUM & MAGNESIUM XX SCH (06:00)
--- NOTE | 2023-05-31 07:36 | RAD ---
EXAM:Portable chestHISTORY:Shortness of breathCOMPARISON:05/29/2023 chest x-ray, 05/30/2023 CT chestFINDINGS:Patient is status post median sternotomy and CABG. There is a right-sided port present. Heart is enlarged. No congestive heart failure is noted. Large right pleural effusion is unchanged. It obscures the lung markings in the right lower lobe. The left pleural effusion noted on the recent CT is not well-visualized on plain film. Right upper lung field and left lung appear clear. Bony thorax is unremarkable.IMPRESSION:Continued cardiomegaly without congestive heart failureNo change large right pleural effusion obscuring the lung markings in the right lower lobeRemainder of the lung marie appear clearTHIS IS AN ELECTRONICALLY VERIFIED FINAL REPORT05/31/2023 7:33 AM - Electronically signed by Gil Healy MD
[2023-05-31] MEDS ORDERED: K-DUR TAB 20 MEQ PO SCH (09:00)
[2023-05-31] MEDS ORDERED: GLUCOPHAGE ONE ×2 (09:03→20:09)
[2023-05-31] MEDS ORDERED: LEXAPRO ONE (09:04)
[2023-05-31] MEDS: LEVAQUIN PREMIX IV 250 MG 250 MG/50 ML BAG IV SCH (09:10)
[2023-05-31] MEDS: LOVENOX INJ 30 MG SYR SC SCH (09:10)
[2023-05-31] MEDS: KLONOPIN TAB 0.5 MG PO SCH ×2 (09:10→20:21)
[2023-05-31] MEDS: FORTAZ or TAZICEF VIAL INJ 1 G in NS 100 ML IV 100 ML IV SCH ×2 (09:10→20:22)
[2023-05-31] MEDS: LEXAPRO PO SCH (09:11)
[2023-05-31] MEDS: WELLBUTRIN XL 150 MG (DAILY) PO SCH (09:11)
[2023-05-31] MEDS: LASIX IVP SCH (09:11)
[2023-05-31] MEDS: COLACE CAP 100 MG PO SCH (09:11)
[2023-05-31] MEDS: ACTOS PO SCH (09:11)
[2023-05-31] MEDS: PROTONIX TAB 40 MG PO SCH (09:11)
[2023-05-31] MEDS: LOPRESSOR TAB 25 MG PO SCH ×2 (09:12→20:21)
[2023-05-31] MEDS: GLUCOPHAGE PO SCH ×2 (09:13→20:21)
[2023-05-31] MEDS: SYNTHROID 88 mcg TAB PO SCH (09:13)
[2023-05-31] MEDS: ASPIRIN EC 81 MG PO SCH (09:13)
[2023-05-31] MEDS: LINZESS PO SCH (09:14)
[2023-05-31] MEDS: VOLTAREN 1 % GEL MULTI DOSE TUBE TOP SCH ×2 (09:15→20:22)
[2023-05-31] MEDS: PATIENT'S HOME MEDICATION (Empagliflozin 25 mg Tablet) PO SCH (09:15)
[2023-05-31] MEDS: NORCO 10/325 TAB PO PRN ×2 (09:24→20:22)
[2023-05-31] MEDS: FLONASE NASAL SPRAY ENOSTRIL SCH (09:34)
[2023-05-31] MEDS: PULMICORT NEB TX 0.5 MG NEB SCH ×2 (09:45→20:25)
[2023-05-31] MEDS: PREDNISONE TAB 10 MG PO SCH (10:51)
[2023-05-31 10:56] LABS: ABG BASE EXCESS 19.5 mmol/L (-2.0-2.0)
[2023-05-31 10:57] LABS: ABG HCO3 46.9 mmol/L (22-26)
[2023-05-31] MEDS: NS 1,000 ML IV 1,000 ML IV SCH (13:38)
[2023-05-31] MEDS: SINGULAIR TAB 10 MG PO SCH (20:21)
[2023-05-31] MEDS: CRESTOR TAB 10 MG PO SCH (20:21)
[2023-05-31] MEDS: SNACK - Diabetic Appropriate PO SCH (20:22)
[2023-05-31] MEDS: LEVEMIR SC SCH (20:44)
[2023-06-01] MEDS: DUONEB 0.5 MG/3 MG (3 mL) NEB SCH ×5 (00:10→17:16)
[2023-06-01 05:24] LABS: BASOPHILS % (AUTO) 0.2 % (0.2-1.0); EOSINOPHILS # (AUTO) 0.1 x10^3/uL (0.0-0.2); EOSINOPHILS % (AUTO) 0.7 % (0.9-2.9); HEMATOCRIT 29.3 % (36.0-47.0); HEMOGLOBIN 9.3 g/dL (12.0-16.0); LYMPHOCYTES # (AUTO) 1.2 X10^3/uL (1.3-2.9); LYMPHOCYTES % (AUTO) 11.1 % (21.0-51.0); MEAN CORPUSCULAR HEMOGLOBIN 26.9 pg (27.0-34.0); MEAN CORPUSCULAR HGB CONC 31.7 g/dL (33.0-35.0); MEAN CORPUSCULAR VOLUME 84.9 fL (80.0-100.0); MEAN PLATELET VOLUME 8.9 fL (7.4-11.0); MONOCYTES # (AUTO) 1.1 x10^3/uL (0.3-0.8); MONOCYTES % (AUTO) 9.7 % (0.0-13.0); NEUTROPHILS # (AUTO) 8.5 x10^3/uL (2.2-4.8); NEUTROPHILS % (AUTO) 78.3 % (42.0-75.0); PLATELET COUNT 274 X10^3/uL (150.0-450.0); RED BLOOD COUNT 3.45 X10^6/uL (3.5-5.4); RED CELL DISTRIBUTION WIDTH 18.2 % (11.6-16.5); WHITE BLOOD COUNT 10.9 X10^3/uL (3.6-10.0)
[2023-06-01] MEDS: BUSPAR PO SCH ×3 (05:28→22:27)
[2023-06-01 05:43] LABS: ALANINE AMINOTRANSFERASE 77 Units/L (12-78); ALBUMIN 1.9 g/dL (3.4-5.0); ALKALINE PHOSPHATASE 116 Units/L (46-116); ASPARTATE AMINO TRANSFERASE 81 Units/L (15-37); BLOOD UREA NITROGEN 33 mg/dL (7-18); CALCIUM 7.5 mg/dL (8.5-10.1); CARBON DIOXIDE 41.5 mmol/L (21-32); CHLORIDE 101 mmol/L (98-107); COR CA(FOR HYPOALB) 9.2 mg/dL (8.5-10.1); COR NA(FOR HYPERGLY) 143 mmol/L (136-145); GLUCOSE 142 mg/dL (65-99); POTASSIUM 3.8 mmol/L (3.5-5.1); SODIUM 142 mmol/L (136-145); eGFR NON BLACK RACES > 60 (>60)
[2023-06-01] MEDS: LEVAQUIN PREMIX IV 250 MG 250 MG/50 ML BAG IV SCH (08:45)
[2023-06-01] MEDS: LOPRESSOR TAB 25 MG PO SCH ×2 (08:45→20:37)
[2023-06-01] MEDS: PULMICORT NEB TX 0.5 MG NEB SCH ×2 (09:11→21:32)
[2023-06-01] MEDS: VOLTAREN 1 % GEL MULTI DOSE TUBE TOP SCH ×2 (09:15→20:38)
[2023-06-01] MEDS: LOVENOX INJ 30 MG SYR SC SCH (09:20)
--- NOTE | 2023-06-01 09:32 | RAD ---
EXAM:CHEST, 1 VIEWHISTORY:SOB;COMPARISON:05/31/2023 r.br.br.br from yesterday. No new findings in the lungs. No pneumothorax.Cardiomegaly is present. There are calcifications in the arteries consistent with atherosclerosis.Degenerative changes are present in the spine.Median sternotomy fixation hardware is present. EKG leads are noted. Right subclavian central venous MediPort catheter is in the expected location of the superior vena cava.IMPRESSION:1. Unchanged right pleural effusionTHIS IS AN ELECTRONICALLY VERIFIED FINAL REPORT06/01/2023 9:29 AM - Electronically signed by Nitesh Danielle MD
[2023-06-01] MEDS: FORTAZ or TAZICEF VIAL INJ 1 G in NS 100 ML IV 100 ML IV SCH ×2 (09:55→20:35)
[2023-06-01] MEDS ORDERED: FARXIGA PO SCH (10:00)
[2023-06-01] MEDS: FLONASE NASAL SPRAY ENOSTRIL SCH (11:14)
[2023-06-01] MEDS ORDERED: DIPRIVAN VIAL 20 ML ONE (12:03)
[2023-06-01] MEDS: GLUCOPHAGE PO SCH ×2 (13:58→20:35)
[2023-06-01] MEDS: NS 1,000 ML IV 1,000 ML IV SCH ×2 (13:58→18:45)
[2023-06-01] MEDS: APRESOLINE TAB 25 MG PO SCH ×4 (13:59→20:35)
[2023-06-01] MEDS ORDERED: LEXAPRO ONE (14:18)
[2023-06-01] MEDS: LEXAPRO PO SCH (14:25)
[2023-06-01] MEDS: WELLBUTRIN XL 150 MG (DAILY) PO SCH (14:25)
[2023-06-01] MEDS: PREDNISONE TAB 10 MG PO SCH (14:26)
[2023-06-01] MEDS: LINZESS PO SCH (14:26)
[2023-06-01] MEDS: PROTONIX TAB 40 MG PO SCH (14:26)
[2023-06-01] MEDS: SYNTHROID 88 mcg TAB PO SCH (14:26)
[2023-06-01] MEDS: PATIENT'S HOME MEDICATION (Empagliflozin 25 mg Tablet) PO SCH (14:27)
[2023-06-01] MEDS: COLACE CAP 100 MG PO SCH (14:27)
[2023-06-01] MEDS: LASIX PO SCH (14:27)
[2023-06-01] MEDS: ACTOS PO SCH (14:28)
[2023-06-01] MEDS: ASPIRIN EC 81 MG PO SCH (14:28)
[2023-06-01] MEDS: NORCO 10/325 TAB PO PRN ×2 (15:18→23:48)
--- NOTE | 2023-06-01 17:02 | RAD ---
EXAM:CHEST x-ray, 1 VIEWHISTORY:CHEST TUBE PLACEMENT -COMPARISON:X-ray 06/01/2023FINDINGS:A right-sided chest tube has been placed. There is decrease in right pleural fluid since prior study. Possible tiny right basilar pneumothorax is present. Areas of atelectasis are suspected in the right lower lung, also.Probable CHF persists. Port catheter is unchanged in position. Small left pleural effusion is likely unchanged.IMPRESSION:Decreased right pleural effusion status post chest tube placement. There may be a small associated right basilar pneumothorax.THIS IS AN ELECTRONICALLY VERIFIED FINAL REPORT06/01/2023 4:58 PM - Electronically signed by Nain Lees MD
[2023-06-01] MEDS: NovoLIN R (or HumuLIN R) SUBCUT PRN ×2 (17:29→20:37)
[2023-06-01] MEDS: MORPHINE SULFATE INJ 2 MG INJ IVP PRN (18:32)
[2023-06-01] MEDS: SNACK - Diabetic Appropriate PO SCH (19:15)
[2023-06-01] MEDS ORDERED: GLUCOPHAGE ONE (19:48)
[2023-06-01] MEDS: CRESTOR TAB 10 MG PO SCH (20:35)
[2023-06-01] MEDS: LEVEMIR SC SCH (20:36)
[2023-06-01] MEDS: KLONOPIN TAB 0.5 MG PO SCH (20:38)
[2023-06-01] MEDS: SINGULAIR TAB 10 MG PO SCH (20:38)
[2023-06-02] MEDS: DUONEB 0.5 MG/3 MG (3 mL) NEB SCH ×5 (00:40→17:21)
[2023-06-02 05:10] LABS: BASOPHILS % (AUTO) 0.1 % (0.2-1.0); EOSINOPHILS # (AUTO) 0.1 x10^3/uL (0.0-0.2); EOSINOPHILS % (AUTO) 0.6 % (0.9-2.9); HEMATOCRIT 29.9 % (36.0-47.0); HEMOGLOBIN 9.5 g/dL (12.0-16.0); LYMPHOCYTES # (AUTO) 0.8 X10^3/uL (1.3-2.9); LYMPHOCYTES % (AUTO) 7.4 % (21.0-51.0); MEAN CORPUSCULAR HGB CONC 31.7 g/dL (33.0-35.0); MEAN CORPUSCULAR VOLUME 85.2 fL (80.0-100.0); MONOCYTES # (AUTO) 1.1 x10^3/uL (0.3-0.8); MONOCYTES % (AUTO) 10.7 % (0.0-13.0); NEUTROPHILS # (AUTO) 8.4 x10^3/uL (2.2-4.8); NEUTROPHILS % (AUTO) 81.2 % (42.0-75.0); PLATELET COUNT 227 X10^3/uL (150.0-450.0); RED BLOOD COUNT 3.51 X10^6/uL (3.5-5.4); RED CELL DISTRIBUTION WIDTH 18.5 % (11.6-16.5); WHITE BLOOD COUNT 10.3 X10^3/uL (3.6-10.0)
[2023-06-02 05:14] LABS: ALANINE AMINOTRANSFERASE 68 Units/L (12-78); ALBUMIN 1.9 g/dL (3.4-5.0); ALKALINE PHOSPHATASE 109 Units/L (46-116); ASPARTATE AMINO TRANSFERASE 42 Units/L (15-37); BLOOD UREA NITROGEN 20 mg/dL (7-18); CALCIUM 7.5 mg/dL (8.5-10.1); CARBON DIOXIDE 41.5 mmol/L (21-32); CHLORIDE 100 mmol/L (98-107); COR CA(FOR HYPOALB) 9.2 mg/dL (8.5-10.1); COR NA(FOR HYPERGLY) 144 mmol/L (136-145); CREATININE 0.76 mg/dL (0.55-1.02); GLUCOSE 180 mg/dL (65-99); SODIUM 142 mmol/L (136-145); TOTAL PROTEIN 5.7 g/dL (6.4-8.2); eGFR NON BLACK RACES > 60 (>60)
--- NOTE | 2023-06-02 06:11 | RAD ---
EXAM:CHEST, 1 VIEWHISTORY:SOB;COMPARISON:06/01/2023. br.br.br.br chestFINDINGS:Right chest wall port with tip in good position. Right thoracostomy tube with tip in stable position. Status post median sternotomy. Series stable blunted costophrenic sulci. Moderate right and small left pleural effusions suspected. The right effusion is worse than prior. There are associated right base opacities that may represent atelectasis or infiltrate. No pneumothorax.IMPRESSION:Moderate right and small left pleural effusions. Right-sided effusion is worse than prior. Associated right base opacity may represent atelectasis or infiltrate.THIS IS AN ELECTRONICALLY VERIFIED FINAL REPORT06/02/2023 6:08 AM - Electronically signed by Law Obando MD
[2023-06-02] MEDS: BUSPAR PO SCH ×3 (06:26→21:36)
[2023-06-02] MEDS ORDERED: GLUCOPHAGE ONE ×2 (08:01→20:46)
[2023-06-02] MEDS ORDERED: LEXAPRO ONE (08:02)
--- NOTE | 2023-06-02 08:12 | DR.PROGNOT ---
HOSPITAL PROGRESS NOTE Progress Note for Day of: Progress Note Date: 06/02/23 Chief Complaint Chief Complaint: Patient looks comfortable today, denies any chest pain or shortness of breath. Repeated x-ray showed some atelectasis right lower lobe with blunting of the costal margin, the rest of the lung is clear and the chest tube is in good position. Normal white count. Patient is afebrile. Past Medical Family Social History Past Med/Fam/Surg Hx: No changes since H&P Allergies: Allergies No Known Allergies [NKA] Allergy (Verified 01/28/22 09:59) Review Of Systems ROS: No change since H&P Vital Signs Vital Signs: Vital Signs Pulse Rate 72 Pulse Rate 73 Pulse Rate 71 Pulse Rate 71 Pulse Rate 71 Pulse Rate 72 Pulse Rate 68 Pulse Rate 69 Pulse Rate 68 Pulse Rate 68 Pulse Rate 71 Pulse Rate 67 Pulse Rate 69 Pulse Rate 70 Pulse Rate 70 Pulse Rate 69 Pulse Rate 71 Pulse Rate 70 Pulse Rate 74 Pulse Rate 73 Pulse Rate 74 Pulse Rate 74 Pulse Rate 75 Pulse Rate 74 Pulse Rate 75 Pulse Rate 75 Pulse Rate 75 Pulse Rate 76 Pulse Rate 76 Pulse Rate 74 Pulse Rate 72 Respiratory Rate 10 Respiratory Rate 12 Respiratory Rate 15 Respiratory Rate 8 Respiratory Rate 9 Respiratory Rate 9 Respiratory Rate 13 Respiratory Rate 12 Respiratory Rate 9 Respiratory Rate 11 Respiratory Rate 10 Respiratory Rate 10 Respiratory Rate 9 Respiratory Rate 21 Respiratory Rate 9 Respiratory Rate 11 Respiratory Rate 8 Respiratory Rate 13 Respiratory Rate 17 Respiratory Rate 8 Respiratory Rate 8 Respiratory Rate 9 Respiratory Rate 9 Respiratory Rate 9 Respiratory Rate 15 Respiratory Rate 9 Respiratory Rate 13 Respiratory Rate 12 Respiratory Rate 15 Respiratory Rate 12 Respiratory Rate 12 Blood Pressure 117/52 Blood Pressure 127/63 Blood Pressure 111/53 Blood Pressure 114/55 Blood Pressure 122/58 Blood Pressure 100/71 Blood Pressure 135/61 Blood Pressure 131/63 Blood Pressure 145/63 Blood Pressure 118/59 Blood Pressure 114/55 Blood Pressure 118/50 Blood Pressure 112/57 Blood Pressure 106/55 Blood Pressure 98/49 Blood Pressure 98/49 Blood Pressure 112/57 Blood Pressure 110/53 Blood Pressure 115/54 Blood Pressure 120/55 Blood Pressure 120/55 Blood Pressure 114/54 Blood Pressure 114/54 Blood Pressure 108/55 Blood Pressure 99/52 Blood Pressure 100/50 Blood Pressure 100/50 Blood Pressure 108/51 Blood Pressure 109/53 Blood Pressure 116/57 Blood Pressure 116/54 Blood Pressure 116/54 O2 Sat by Pulse Oximetry 100 O2 Sat by Pulse Oximetry 100 O2 Sat by Pulse Oximetry 99 O2 Sat by Pulse Oximetry 100 O2 Sat by Pulse Oximetry 100 O2 Sat by Pulse Oximetry 100 O2 Sat by Pulse Oximetry 100 O2 Sat by Pulse Oximetry 100 O2 Sat by Pulse Oximetry 100 O2 Sat by Pulse Oximetry 100 O2 Sat by Pulse Oximetry 100 O2 Sat by Pulse Oximetry 100 O2 Sat by Pulse Oximetry 100 O2 Sat by Pulse Oximetry 100 O2 Sat by Pulse Oximetry 100 O2 Sat by Pulse Oximetry 100 O2 Sat by Pulse Oximetry 100 O2 Sat by Pulse Oximetry 100 O2 Sat by Pulse Oximetry 97 O2 Sat by Pulse Oximetry 100 O2 Sat by Pulse Oximetry 100 O2 Sat by Pulse Oximetry 100 O2 Sat by Pulse Oximetry 100 O2 Sat by Pulse Oximetry 100 O2 Sat by Pulse Oximetry 100 O2 Sat by Pulse Oximetry 100 O2 Sat by Pulse Oximetry 100 O2 Sat by Pulse Oximetry 99 O2 Sat by Pulse Oximetry 93 O2 Sat by Pulse Oximetry 99 O2 Sat by Pulse Oximetry 97 Physical Exam Oriented: Normal Eyes: Normal Ear: Normal Nose: Normal Throat: Normal Respiratory: Generalized and Wheezes Cardiovascular: Normal : Normal GI:Auscultation: Normal GI:Palpation: Normal GI: Tenderness: Normal Skin: Normal Musculoskeletal: Normal and Motor Deficit (MILD DIFFUSE MUSCLE WEAKNESS) Psychiatric: Normal Mood Description: Calm Affect: Flat Speech Pattern: Clear and Appropriate Laboratory and Diagnostics 06/02/23 04:10 06/02/23 04:10 Labs: 05/24/23 12:27 Blood Blood Culture Gram Stain - Final 05/24/23 12:27 Blood Blood Culture - Final Staphylococcus Epidermidis 05/24/23 12:20 Blood Blood Culture Gram Stain - Final 05/24/23 12:20 Blood Blood Culture - Final Staphylococcus Epidermidis Laboratory WBC 10.3 X10^3/uL (3.6-10.0) H 06/02/23 04:10 RBC 3.51 X10^6/uL (3.5-5.4) 06/02/23 04:10 Hgb 9.5 g/dL (12.0-16.0) L 06/02/23 04:10 Hct 29.9 % (36.0-47.0) L 06/02/23 04:10 MCV 85.2 fL (80.0-100.0) 06/02/23 04:10 MCH 27.0 pg (27.0-34.0) 06/02/23 04:10 MCHC 31.7 g/dL (33.0-35.0) L 06/02/23 04:10 RDW 18.5 % (11.6-16.5) H 06/02/23 04:10 Plt Count 227 X10^3/uL (150.0-450.0) 06/02/23 04:10 Plt Count Comment Adequate (ADEQUATE) 05/31/23 04:26 MPV 9.0 fL (7.4-11.0) 06/02/23 04:10 Neut % (Auto) 81.2 % (42.0-75.0) H 06/02/23 04:10 Lymph % (Auto) 7.4 % (21.0-51.0) L 06/02/23 04:10 [place] % (Auto) 10.7 % (0.0-13.0) 06/02/23 04:10 Eos % (Auto) 0.6 % (0.9-2.9) L 06/02/23 04:10 Baso % (Auto) 0.1 % (0.2-1.0) L 06/02/23 04:10 Neut # (Auto) 8.4 x10^3/uL (2.2-4.8) H 06/02/23 04:10 Lymph # (Auto) 0.8 X10^3/uL (1.3-2.9) L 06/02/23 04:10 [place] # (Auto) 1.1 x10^3/uL (0.3-0.8) H 06/02/23 04:10 Eos # (Auto) 0.1 x10^3/uL (0.0-0.2) 06/02/23 04:10 Baso # (Auto) 0.0 X10^3/uL (0.0-0.1) 06/02/23 04:10 Absolute Nucleated RBC 0.1 /100WBC 06/02/23 04:10 Total Counted 100 05/31/23 04:26 Neutrophils % (Manual) 92 % (39-76) H 05/31/23 04:26 Lymphocytes % (Manual) 4 % (13-43) L 05/31/23 04:26 Monocytes % (Manual) 3 % (4-9) L 05/31/23 04:26 Eosinophils % (Manual) 1 % (0-6) 05/31/23 04:26 Plt Morphology Comment Normal (NORMAL) 05/31/23 04:26 RBC Morphology Abnormal (NORMAL) A 05/31/23 04:26 Hypochromasia 1+ A 05/31/23 04:26 Anisocytosis Slight A 05/31/23 04:26 Stomatocytes Present 05/31/23 04:26 Sample Site Rbr 05/31/23 10:52 ABG pH 7.460 (7.35-7.45) H 05/31/23 10:52 ABG pCO2 66.0 mmHg (35.0-45.0) H* 05/31/23 10:52 ABG pO2 73.0 mmHg (80.0-100.0) L 05/31/23 10:52 ABG HCO3 46.9 mmol/L (22-26) H* 05/31/23 10:52 ABG O2 Saturation 95.0 % (90-100) 05/31/23 10:52 ABG Base Excess 19.5 mmol/L (-2.0-2.0) H 05/31/23 10:52 Nikolay Test Na 05/31/23 10:52 A-a Gradient 130.0 mmHg 05/31/23 10:52 FiO2 40.0 05/31/23 10:52 Blood Gas Comments Pt sunil well. kg/eb 05/31/23 10:52 Sodium 142 mmol/L (136-145) 06/02/23 04:10 Corrected Sodium 144 mmol/L (136-145) 06/02/23 04:10 Potassium 4.0 mmol/L (3.5-5.1) 06/02/23 04:10 Chloride 100 mmol/L (98-107) 06/02/23 04:10 Carbon Dioxide 41.5 mmol/L (21-32) H 06/02/23 04:10 BUN 20 mg/dL (7-18) H 06/02/23 04:10 Creatinine 0.76 mg/dL (0.55-1.02) 06/02/23 04:10 Est GFR (MDRD) Af Amer > 60 (>60) 06/02/23 04:10 Est GFR (MDRD) Non-Af > 60 (>60) 06/02/23 04:10 Glucose 180 mg/dL (65-99) H 06/02/23 04:10 POC Glucose (mg/dL) 142 mg/dL (65-99) H 06/02/23 05:25 Lactic Acid 0.8 mmol/L (0.4-2.0) 05/24/23 12:27 Calcium 7.5 mg/dL (8.5-10.1) L 06/02/23 04:10 Corrected Calcium 9.2 mg/dL (8.5-10.1) 06/02/23 04:10 Magnesium 2.0 mg/dL (2.0-2.9) 05/31/23 04:26 Total Bilirubin 0.30 mg/dL (0.2-1.0) 06/02/23 04:10 AST 42 Units/L (15-37) H 06/02/23 04:10 ALT 68 Units/L (12-78) 06/02/23 04:10 Alkaline Phosphatase 109 Units/L (46-116) 06/02/23 04:10 Total Protein 5.7 g/dL (6.4-8.2) L 06/02/23 04:10 Albumin 1.9 g/dL (3.4-5.0) L 06/02/23 04:10 Globulin 3.8 g/dL (2.5-4.5) 06/02/23 04:10 Albumin/Globulin Ratio 0.5 Ratio (1.1-2.1) L 06/02/23 04:10 Specimen Type Clean catch urine 05/28/23 10:50 Urine Color Pale yellow (YELLOW) 05/28/23 10:50 Urine Appearance Clear (CLEAR) 05/28/23 10:50 Urine pH 5.0 (5.0 - 8.0) 05/28/23 10:50 Ur Specific [place] 1.010 (1.000-1.030) 05/28/23 10:50 Urine Protein 2+ (NEGATIVE) 05/28/23 10:50 Urine Glucose (UA) 4+ (NEGATIVE) 05/28/23 10:50 Urine Ketones Negative (NEGATIVE) 05/28/23 10:50 Urine Blood 1+ (NEGATIVE) 05/28/23 10:50 Urine Nitrite Negative (NEGATIVE) 05/28/23 10:50 Urine Bilirubin Negative (NEGATIVE) 05/28/23 10:50 Urine Urobilinogen Normal (NORMAL) 05/28/23 10:50 Ur Leukocyte Esterase Negative (NEGATIVE) 05/28/23 10:50 Urine RBC 0-2 /HPF (0-3) 05/28/23 10:50 Urine WBC 0-2 /HPF (0-5) 05/28/23 10:50 Ur Squamous Epith Cells Rare /HPF (NEGATIVE) 05/28/23 10:50 Ur Renal Epithelial Cell Rare /HPF (NEGATIVE) 05/24/23 14:20 Amorphous Sediment Trace /HPF (NEGATIVE) 05/28/23 10:50 Urine Bacteria Trace /HPF (NEGATIVE) 05/28/23 10:50 Hyaline Casts Moderate /LPF (NEGATIVE) 05/24/23 14:20 Granular Casts Rare /LPF (NEGATIVE) 05/24/23 14:20 Urine Mucus Few /HPF (NEGATIVE) 05/28/23 10:50 Ur Culture Indicated? No/not indicated 05/28/23 10:50 Resp Viral Panel (PCR) See scanned report 05/25/23 16:35 Assessment and Plan 1: Right pleural effusion, status postplacement of chest tube. To continue Dickel care, respiratory therapy, incentive spirometer, and out of bed.. Problem Patient Problems: Patient Problems GERD (gastroesophageal reflux disease) (Chronic) K21.9 Diabetes mellitus, type 2 (Chronic) E11.9 Depressive disorder (Chronic) F32.9 Essential hypertension (Chronic) I10 Hypothyroidism (Chronic) E03.9 COPD exacerbation (Acute) J44.1 COPD exacerbation (Acute) J44.1 Altered mental status (Acute) R41.82 Pneumonia (Acute) J18.9 Respiratory failure with hypoxia and hypercapnia (Acute) J96.91, J96.92
[2023-06-02] MEDS: PULMICORT NEB TX 0.5 MG NEB SCH ×2 (08:32→21:05)
[2023-06-02] MEDS: LASIX PO SCH (08:38)
[2023-06-02] MEDS: ACTOS PO SCH (08:38)
[2023-06-02] MEDS: LEXAPRO PO SCH (08:38)
[2023-06-02] MEDS: SYNTHROID 88 mcg TAB PO SCH (08:38)
[2023-06-02] MEDS: COLACE CAP 100 MG PO SCH (08:38)
[2023-06-02] MEDS: ASPIRIN EC 81 MG PO SCH (08:38)
[2023-06-02] MEDS: NORCO 10/325 TAB PO PRN ×2 (08:38→16:56)
[2023-06-02] MEDS: LINZESS PO SCH (08:38)
[2023-06-02] MEDS: PREDNISONE TAB 10 MG PO SCH (08:38)
[2023-06-02] MEDS: PROTONIX TAB 40 MG PO SCH (08:39)
[2023-06-02] MEDS: GLUCOPHAGE PO SCH ×2 (08:39→20:54)
[2023-06-02] MEDS: LOVENOX INJ 30 MG SYR SC SCH (08:39)
[2023-06-02] MEDS: WELLBUTRIN XL 150 MG (DAILY) PO SCH (08:39)
[2023-06-02] MEDS: LEVAQUIN PREMIX IV 250 MG 250 MG/50 ML BAG IV SCH (08:39)
[2023-06-02] MEDS: FLONASE NASAL SPRAY ENOSTRIL SCH (08:40)
[2023-06-02] MEDS: PATIENT'S HOME MEDICATION (Empagliflozin 25 mg Tablet) PO SCH (08:54)
[2023-06-02] MEDS: VOLTAREN 1 % GEL MULTI DOSE TUBE TOP SCH ×2 (09:15→20:57)
[2023-06-02] MEDS: FORTAZ or TAZICEF VIAL INJ 1 G in NS 100 ML IV 100 ML IV SCH ×2 (10:05→20:57)
[2023-06-02] MEDS: LOPRESSOR TAB 25 MG PO SCH ×2 (10:07→20:54)
[2023-06-02] MEDS: APRESOLINE TAB 25 MG PO SCH ×4 (10:07→20:54)
[2023-06-02] MEDS: NS 1,000 ML IV 1,000 ML IV SCH (12:24)
[2023-06-02] MEDS: KLONOPIN TAB 0.5 MG PO SCH (20:53)
[2023-06-02] MEDS: CRESTOR TAB 10 MG PO SCH (20:53)
[2023-06-02] MEDS: MORPHINE SULFATE INJ 2 MG INJ IVP PRN (20:53)
[2023-06-02] MEDS: SINGULAIR TAB 10 MG PO SCH (20:56)
[2023-06-02] MEDS: SNACK - Diabetic Appropriate PO SCH (21:00)
[2023-06-02] MEDS: LEVEMIR SC SCH (21:30)
[2023-06-02] MEDS: NovoLIN R (or HumuLIN R) SUBCUT PRN (21:33)
[2023-06-03] MEDS: DUONEB 0.5 MG/3 MG (3 mL) NEB SCH ×4 (00:45→17:30)
[2023-06-03] MEDS: NORCO 10/325 TAB PO PRN ×3 (00:45→20:47)
[2023-06-03 04:48] LABS: BASOPHILS % (AUTO) 0.1 % (0.2-1.0); EOSINOPHILS # (AUTO) 0.2 x10^3/uL (0.0-0.2); EOSINOPHILS % (AUTO) 2.6 % (0.9-2.9); HEMATOCRIT 31.1 % (36.0-47.0); HEMOGLOBIN 9.9 g/dL (12.0-16.0); MEAN CORPUSCULAR HEMOGLOBIN 27.1 pg (27.0-34.0); MEAN CORPUSCULAR HGB CONC 31.9 g/dL (33.0-35.0); MEAN CORPUSCULAR VOLUME 85.1 fL (80.0-100.0); MONOCYTES # (AUTO) 1.3 x10^3/uL (0.3-0.8); MONOCYTES % (AUTO) 13.7 % (0.0-13.0); NEUTROPHILS # (AUTO) 6.8 x10^3/uL (2.2-4.8); NEUTROPHILS % (AUTO) 72.6 % (42.0-75.0); PLATELET COUNT 212 X10^3/uL (150.0-450.0); RED BLOOD COUNT 3.65 X10^6/uL (3.5-5.4); RED CELL DISTRIBUTION WIDTH 18.7 % (11.6-16.5); WHITE BLOOD COUNT 9.4 X10^3/uL (3.6-10.0)
[2023-06-03 04:55] LABS: ALANINE AMINOTRANSFERASE 99 Units/L (12-78); ALBUMIN 1.8 g/dL (3.4-5.0); ALKALINE PHOSPHATASE 120 Units/L (46-116); ASPARTATE AMINO TRANSFERASE 73 Units/L (15-37); BLOOD UREA NITROGEN 17 mg/dL (7-18); CALCIUM 7.8 mg/dL (8.5-10.1); CARBON DIOXIDE 41.6 mmol/L (21-32); CHLORIDE 101 mmol/L (98-107); COR CA(FOR HYPOALB) 9.6 mg/dL (8.5-10.1); COR NA(FOR HYPERGLY) 143 mmol/L (136-145); CREATININE 0.87 mg/dL (0.55-1.02); GLUCOSE 176 mg/dL (65-99); POTASSIUM 3.8 mmol/L (3.5-5.1); SODIUM 141 mmol/L (136-145); TOTAL PROTEIN 5.6 g/dL (6.4-8.2); eGFR NON BLACK RACES > 60 (>60)
[2023-06-03] MEDS: BUSPAR PO SCH ×3 (06:25→21:14)
[2023-06-03] MEDS ORDERED: CONSULT PHARMACY - POTASSIUM & MAGNESIUM XX SCH (07:00)
--- NOTE | 2023-06-03 07:46 | RAD ---
EXAM:Portable AP chestHISTORY:Short of breathCOMPARISON:06/02/2023FINDINGS:Ther e is no change in appearance of heart, lungs mediastinum. Right chest tube is unchanged in position without pneumothorax identified. Asymmetric pleural effusions are similar with infiltrate/atelectasis unchanged at the right base.IMPRESSION:No interval change or new abnormality since 1 day prior.THIS IS AN ELECTRONICALLY VERIFIED FINAL REPORT06/03/2023 7:43 AM - Electronically signed by Vladimir Ag MD
[2023-06-03] MEDS ORDERED: K-DUR TAB 20 MEQ PO SCH (09:00)
[2023-06-03] MEDS ORDERED: GLUCOPHAGE ONE ×2 (09:03→19:22)
[2023-06-03] MEDS ORDERED: LEXAPRO ONE (09:03)
[2023-06-03] MEDS: PREDNISONE TAB 10 MG PO SCH (09:17)
[2023-06-03] MEDS: LINZESS PO SCH (09:17)
[2023-06-03] MEDS: PROTONIX TAB 40 MG PO SCH (09:17)
[2023-06-03] MEDS: SYNTHROID 88 mcg TAB PO SCH (09:17)
[2023-06-03] MEDS: LASIX PO SCH (09:18)
[2023-06-03] MEDS: APRESOLINE TAB 25 MG PO SCH ×4 (09:18→20:31)
[2023-06-03] MEDS: LEXAPRO PO SCH (09:18)
[2023-06-03] MEDS: COLACE CAP 100 MG PO SCH (09:18)
[2023-06-03] MEDS: WELLBUTRIN XL 150 MG (DAILY) PO SCH (09:18)
[2023-06-03] MEDS: ACTOS PO SCH (09:18)
[2023-06-03] MEDS: GLUCOPHAGE PO SCH ×2 (09:18→20:33)
[2023-06-03] MEDS: ASPIRIN EC 81 MG PO SCH (09:19)
[2023-06-03] MEDS: LOPRESSOR TAB 25 MG PO SCH ×2 (09:19→20:34)
[2023-06-03] MEDS: LOVENOX INJ 30 MG SYR SC SCH (09:20)
[2023-06-03] MEDS: FORTAZ or TAZICEF VIAL INJ 1 G in NS 100 ML IV 100 ML IV SCH ×2 (09:20→20:28)
[2023-06-03] MEDS: FLONASE NASAL SPRAY ENOSTRIL SCH (09:20)
[2023-06-03] MEDS: VOLTAREN 1 % GEL MULTI DOSE TUBE TOP SCH ×2 (09:26→20:44)
[2023-06-03] MEDS: PATIENT'S HOME MEDICATION (Empagliflozin 25 mg Tablet) PO SCH (09:27)
[2023-06-03] MEDS: LEVAQUIN PREMIX IV 500 MG 500 MG/100 ML BAG IV SCH (09:55)
[2023-06-03] MEDS: PULMICORT NEB TX 0.5 MG NEB SCH ×2 (10:08→20:04)
--- NOTE | 2023-06-03 11:22 | DR.PROGNOT ---
HOSPITAL PROGRESS NOTE Progress Note for Day of: Progress Note Date: 06/03/23 Chief Complaint Chief Complaint: no changes ,looks comfortable today, denies any chest pain or shortness of breath. Repeated x-ray showed some atelectasis right lower lobe with blunting of the costophrenic margin, the rest of the lung is clear and the chest tube is in good position. Normal white count. Patient is afebrile. Past Medical Family Social History Past Med/Fam/Surg Hx: No changes since H&P Allergies: Allergies No Known Allergies [NKA] Allergy (Verified 01/28/22 09:59) Review Of Systems ROS: No change since H&P Vital Signs Vital Signs: Vital Signs Temperature 97.9 F Pulse Rate 63 Pulse Rate 69 Pulse Rate 67 Pulse Rate 69 Respiratory Rate 20 Respiratory Rate 20 Respiratory Rate 13 Respiratory Rate 17 Blood Pressure 130/59 Blood Pressure 103/51 Blood Pressure 103/52 O2 Sat by Pulse Oximetry 95 O2 Sat by Pulse Oximetry 96 O2 Sat by Pulse Oximetry 99 O2 Sat by Pulse Oximetry 96 Physical Exam Oriented: Normal Eyes: Normal Ear: Normal Nose: Normal Throat: Normal Respiratory: Generalized and Wheezes Cardiovascular: Normal : Normal GI:Auscultation: Normal GI:Palpation: Normal GI: Tenderness: Normal Skin: Normal Musculoskeletal: Normal and Motor Deficit (MILD DIFFUSE MUSCLE WEAKNESS) Psychiatric: Normal Mood Description: Calm Affect: Flat Speech Pattern: Clear and Appropriate Laboratory and Diagnostics 06/03/23 04:25 06/03/23 04:25 Labs: 06/02/23 17:18 Pleural Fluid - Preliminary 05/24/23 12:27 Blood Blood Culture Gram Stain - Final 05/24/23 12:27 Blood Blood Culture - Final Staphylococcus Epidermidis 05/24/23 12:20 Blood Blood Culture Gram Stain - Final 05/24/23 12:20 Blood Blood Culture - Final Staphylococcus Epidermidis Laboratory WBC 9.4 X10^3/uL (3.6-10.0) 06/03/23 04:25 RBC 3.65 X10^6/uL (3.5-5.4) 06/03/23 04:25 Hgb 9.9 g/dL (12.0-16.0) L 06/03/23 04:25 Hct 31.1 % (36.0-47.0) L 06/03/23 04:25 MCV 85.1 fL (80.0-100.0) 06/03/23 04:25 MCH 27.1 pg (27.0-34.0) 06/03/23 04:25 MCHC 31.9 g/dL (33.0-35.0) L 06/03/23 04:25 RDW 18.7 % (11.6-16.5) H 06/03/23 04:25 Plt Count 212 X10^3/uL (150.0-450.0) 06/03/23 04:25 Plt Count Comment Adequate (ADEQUATE) 05/31/23 04:26 MPV 9.0 fL (7.4-11.0) 06/03/23 04:25 Neut % (Auto) 72.6 % (42.0-75.0) 06/03/23 04:25 Lymph % (Auto) 11.0 % (21.0-51.0) L 06/03/23 04:25 [place] % (Auto) 13.7 % (0.0-13.0) H 06/03/23 04:25 Eos % (Auto) 2.6 % (0.9-2.9) 06/03/23 04:25 Baso % (Auto) 0.1 % (0.2-1.0) L 06/03/23 04:25 Neut # (Auto) 6.8 x10^3/uL (2.2-4.8) H 06/03/23 04:25 Lymph # (Auto) 1.0 X10^3/uL (1.3-2.9) L 06/03/23 04:25 [place] # (Auto) 1.3 x10^3/uL (0.3-0.8) H 06/03/23 04:25 Eos # (Auto) 0.2 x10^3/uL (0.0-0.2) 06/03/23 04:25 Baso # (Auto) 0.0 X10^3/uL (0.0-0.1) 06/03/23 04:25 Absolute Nucleated RBC 0.0 /100WBC 06/03/23 04:25 Total Counted 100 05/31/23 04:26 Neutrophils % (Manual) 92 % (39-76) H 05/31/23 04:26 Lymphocytes % (Manual) 4 % (13-43) L 05/31/23 04:26 Monocytes % (Manual) 3 % (4-9) L 05/31/23 04:26 Eosinophils % (Manual) 1 % (0-6) 05/31/23 04:26 Plt Morphology Comment Normal (NORMAL) 05/31/23 04:26 RBC Morphology Abnormal (NORMAL) A 05/31/23 04:26 Hypochromasia 1+ A 05/31/23 04:26 Anisocytosis Slight A 05/31/23 04:26 Stomatocytes Present 05/31/23 04:26 Sample Site Rbr 05/31/23 10:52 ABG pH 7.460 (7.35-7.45) H 05/31/23 10:52 ABG pCO2 66.0 mmHg (35.0-45.0) H* 05/31/23 10:52 ABG pO2 73.0 mmHg (80.0-100.0) L 05/31/23 10:52 ABG HCO3 46.9 mmol/L (22-26) H* 05/31/23 10:52 ABG O2 Saturation 95.0 % (90-100) 05/31/23 10:52 ABG Base Excess 19.5 mmol/L (-2.0-2.0) H 05/31/23 10:52 Nikolay Test Na 05/31/23 10:52 A-a Gradient 130.0 mmHg 05/31/23 10:52 FiO2 40.0 05/31/23 10:52 Blood Gas Comments Pt sunil well. kg/eb 05/31/23 10:52 Sodium 141 mmol/L (136-145) 06/03/23 04:25 Corrected Sodium 143 mmol/L (136-145) 06/03/23 04:25 Potassium 3.8 mmol/L (3.5-5.1) 06/03/23 04:25 Chloride 101 mmol/L (98-107) 06/03/23 04:25 Carbon Dioxide 41.6 mmol/L (21-32) H 06/03/23 04:25 BUN 17 mg/dL (7-18) 06/03/23 04:25 Creatinine 0.87 mg/dL (0.55-1.02) 06/03/23 04:25 Est GFR (MDRD) Af Amer > 60 (>60) 06/03/23 04:25 Est GFR (MDRD) Non-Af > 60 (>60) 06/03/23 04:25 Glucose 176 mg/dL (65-99) H 06/03/23 04:25 POC Glucose (mg/dL) 144 mg/dL (65-99) H 06/03/23 06:23 Lactic Acid 0.8 mmol/L (0.4-2.0) 05/24/23 12:27 Calcium 7.8 mg/dL (8.5-10.1) L 06/03/23 04:25 Corrected Calcium 9.6 mg/dL (8.5-10.1) 06/03/23 04:25 Magnesium 1.8 mg/dL (2.0-2.9) L 06/03/23 04:25 Total Bilirubin 0.30 mg/dL (0.2-1.0) 06/03/23 04:25 AST 73 Units/L (15-37) H 06/03/23 04:25 ALT 99 Units/L (12-78) H 06/03/23 04:25 Alkaline Phosphatase 120 Units/L (46-116) H 06/03/23 04:25 Total Protein 5.6 g/dL (6.4-8.2) L 06/03/23 04:25 Albumin 1.8 g/dL (3.4-5.0) L 06/03/23 04:25 Globulin 3.8 g/dL (2.5-4.5) 06/03/23 04:25 Albumin/Globulin Ratio 0.5 Ratio (1.1-2.1) L 06/03/23 04:25 Specimen Type Clean catch urine 05/28/23 10:50 Urine Color Pale yellow (YELLOW) 05/28/23 10:50 Urine Appearance Clear (CLEAR) 05/28/23 10:50 Urine pH 5.0 (5.0 - 8.0) 05/28/23 10:50 Ur Specific [place] 1.010 (1.000-1.030) 05/28/23 10:50 Urine Protein 2+ (NEGATIVE) 05/28/23 10:50 Urine Glucose (UA) 4+ (NEGATIVE) 05/28/23 10:50 Urine Ketones Negative (NEGATIVE) 05/28/23 10:50 Urine Blood 1+ (NEGATIVE) 05/28/23 10:50 Urine Nitrite Negative (NEGATIVE) 05/28/23 10:50 Urine Bilirubin Negative (NEGATIVE) 05/28/23 10:50 Urine Urobilinogen Normal (NORMAL) 05/28/23 10:50 Ur Leukocyte Esterase Negative (NEGATIVE) 05/28/23 10:50 Urine RBC 0-2 /HPF (0-3) 05/28/23 10:50 Urine WBC 0-2 /HPF (0-5) 05/28/23 10:50 Ur Squamous Epith Cells Rare /HPF (NEGATIVE) 05/28/23 10:50 Ur Renal Epithelial Cell Rare /HPF (NEGATIVE) 05/24/23 14:20 Amorphous Sediment Trace /HPF (NEGATIVE) 05/28/23 10:50 Urine Bacteria Trace /HPF (NEGATIVE) 05/28/23 10:50 Hyaline Casts Moderate /LPF (NEGATIVE) 05/24/23 14:20 Granular Casts Rare /LPF (NEGATIVE) 05/24/23 14:20 Urine Mucus Few /HPF (NEGATIVE) 05/28/23 10:50 Ur Culture Indicated? No/not indicated 05/28/23 10:50 Resp Viral Panel (PCR) See scanned report 05/25/23 16:35 Assessment and Plan 1: Right pleural effusion, status post placement of chest tube. To continue same care, respiratory therapy, incentive spirometer, and out of bed.. Problem Patient Problems: Patient Problems GERD (gastroesophageal reflux disease) (Chronic) K21.9 Diabetes mellitus, type 2 (Chronic) E11.9 Depressive disorder (Chronic) F32.9 Essential hypertension (Chronic) I10 Hypothyroidism (Chronic) E03.9 COPD exacerbation (Acute) J44.1 COPD exacerbation (Acute) J44.1 Altered mental status (Acute) R41.82 Pneumonia (Acute) J18.9 Respiratory failure with hypoxia and hypercapnia (Acute) J96.91, J96.92
[2023-06-03] MEDS: NS 1,000 ML IV 1,000 ML IV SCH (14:28)
[2023-06-03] MEDS: CRESTOR TAB 10 MG PO SCH (20:32)
[2023-06-03] MEDS: KLONOPIN TAB 0.5 MG PO SCH (20:33)
[2023-06-03] MEDS: SINGULAIR TAB 10 MG PO SCH (20:34)
[2023-06-03] MEDS: LEVEMIR SC SCH (20:36)
[2023-06-03] MEDS: SNACK - Diabetic Appropriate PO SCH (20:44)
[2023-06-03] MEDS: MORPHINE SULFATE INJ 2 MG INJ IVP PRN (23:51)
[2023-06-04] MEDS: DUONEB 0.5 MG/3 MG (3 mL) NEB SCH ×4 (01:30→17:45)
[2023-06-04] MEDS: BUSPAR PO SCH ×3 (05:00→21:20)
[2023-06-04] MEDS: NS 1,000 ML IV 1,000 ML IV SCH ×2 (05:06→14:06)
[2023-06-04 05:27] LABS: BASOPHILS % (AUTO) 0.3 % (0.2-1.0); EOSINOPHILS # (AUTO) 0.2 x10^3/uL (0.0-0.2); EOSINOPHILS % (AUTO) 2.5 % (0.9-2.9); HEMATOCRIT 29.8 % (36.0-47.0); HEMOGLOBIN 9.6 g/dL (12.0-16.0); LYMPHOCYTES # (AUTO) 1.2 X10^3/uL (1.3-2.9); LYMPHOCYTES % (AUTO) 14.2 % (21.0-51.0); MEAN CORPUSCULAR HEMOGLOBIN 27.1 pg (27.0-34.0); MEAN CORPUSCULAR HGB CONC 32.1 g/dL (33.0-35.0); MEAN CORPUSCULAR VOLUME 84.5 fL (80.0-100.0); MEAN PLATELET VOLUME 9.4 fL (7.4-11.0); MONOCYTES # (AUTO) 1.1 x10^3/uL (0.3-0.8); MONOCYTES % (AUTO) 13.5 % (0.0-13.0); NEUTROPHILS # (AUTO) 5.9 x10^3/uL (2.2-4.8); NEUTROPHILS % (AUTO) 69.5 % (42.0-75.0); PLATELET COUNT 225 X10^3/uL (150.0-450.0); RED BLOOD COUNT 3.53 X10^6/uL (3.5-5.4); RED CELL DISTRIBUTION WIDTH 18.1 % (11.6-16.5); WHITE BLOOD COUNT 8.4 X10^3/uL (3.6-10.0)
[2023-06-04 05:36] LABS: ALANINE AMINOTRANSFERASE 83 Units/L (12-78); ALKALINE PHOSPHATASE 123 Units/L (46-116); ASPARTATE AMINO TRANSFERASE 45 Units/L (15-37); BLOOD UREA NITROGEN 18 mg/dL (7-18); CARBON DIOXIDE 38.8 mmol/L (21-32); CHLORIDE 101 mmol/L (98-107); COR CA(FOR HYPOALB) 9.6 mg/dL (8.5-10.1); COR NA(FOR HYPERGLY) 142 mmol/L (136-145); CREATININE 0.96 mg/dL (0.55-1.02); GLUCOSE 135 mg/dL (65-99); MAGNESIUM 1.8 mg/dL (2.0-2.9); POTASSIUM 3.6 mmol/L (3.5-5.1); SODIUM 141 mmol/L (136-145); eGFR NON BLACK RACES > 60 (>60)
[2023-06-04] MEDS ORDERED: CONSULT PHARMACY - POTASSIUM & MAGNESIUM XX SCH (06:00)
[2023-06-04] MEDS ORDERED: GLUCOPHAGE ONE ×2 (08:46→20:19)
[2023-06-04] MEDS ORDERED: LEXAPRO ONE (08:47)
[2023-06-04] MEDS ORDERED: K-DUR TAB 20 MEQ PO SCH (09:00)
[2023-06-04] MEDS: LEVAQUIN PREMIX IV 500 MG 500 MG/100 ML BAG IV SCH (09:06)
--- NOTE | 2023-06-04 09:20 | RAD ---
EXAM:Portable AP chestHISTORY:Short of breathCOMPARISON:06/03/2023FINDINGS:Hear t size remains unchanged and there is no new abnormality noted. Stable pleural-parenchymal abnormality at the right base with right chest tube. No definite pneumothorax or other extrapulmonary air. Right subclavian port remains in the SVC.IMPRESSION:No change/new abnormality since 1 day prior.THIS IS AN ELECTRONICALLY VERIFIED FINAL REPORT06/04/2023 9:17 AM - Electronically signed by Vladimir Ag MD
[2023-06-04] MEDS: FORTAZ or TAZICEF VIAL INJ 1 G in NS 100 ML IV 100 ML IV SCH ×2 (09:24→21:20)
[2023-06-04] MEDS: SYNTHROID 88 mcg TAB PO SCH (09:26)
[2023-06-04] MEDS: LOVENOX INJ 30 MG SYR SC SCH (09:26)
[2023-06-04] MEDS: LINZESS PO SCH (09:27)
[2023-06-04] MEDS: WELLBUTRIN XL 150 MG (DAILY) PO SCH (09:27)
[2023-06-04] MEDS: LEXAPRO PO SCH (09:28)
[2023-06-04] MEDS: GLUCOPHAGE PO SCH ×2 (09:28→21:20)
[2023-06-04] MEDS: PROTONIX TAB 40 MG PO SCH (09:29)
[2023-06-04] MEDS: LASIX PO SCH (09:29)
[2023-06-04] MEDS: APRESOLINE TAB 25 MG PO SCH ×5 (09:29→21:19)
[2023-06-04] MEDS: MAG-OX TAB PO SCH ×2 (09:29→10:30)
[2023-06-04] MEDS: ACTOS PO SCH (09:29)
[2023-06-04] MEDS: PREDNISONE TAB 10 MG PO SCH (09:29)
[2023-06-04] MEDS: LOPRESSOR TAB 25 MG PO SCH ×2 (09:30→21:21)
[2023-06-04] MEDS: ASPIRIN EC 81 MG PO SCH (09:30)
[2023-06-04] MEDS: COLACE CAP 100 MG PO SCH (09:30)
[2023-06-04] MEDS: FLONASE NASAL SPRAY ENOSTRIL SCH (09:45)
[2023-06-04] MEDS: PULMICORT NEB TX 0.5 MG NEB SCH ×2 (09:46→20:21)
[2023-06-04] MEDS: PATIENT'S HOME MEDICATION (Empagliflozin 25 mg Tablet) PO SCH (10:00)
[2023-06-04] MEDS: VOLTAREN 1 % GEL MULTI DOSE TUBE TOP SCH ×2 (10:22→21:21)
--- NOTE | 2023-06-04 14:15 | DR.PROGNOT ---
HOSPITAL PROGRESS NOTE Progress Note for Day of: Progress Note Date: 06/04/23 Chief Complaint Chief Complaint: no changes ,looks comfortable today, denies any chest pain or shortness of breath. Repeated x-ray showed some atelectasis right lower lobe with blunting of the costophrenic margin, the rest of the lung is clear and the chest tube is in good position. Normal white count. Patient is afebrile. Past Medical Family Social History Past Med/Fam/Surg Hx: No changes since H&P Allergies: Allergies No Known Allergies [NKA] Allergy (Verified 01/28/22 09:59) Review Of Systems ROS: No change since H&P Vital Signs Vital Signs: Vital Signs Temperature 97.3 F Temperature 97.7 F Pulse Rate 75 Pulse Rate 76 Pulse Rate 75 Pulse Rate 76 Pulse Rate 73 Pulse Rate 72 Pulse Rate 72 Pulse Rate 73 Respiratory Rate 15 Respiratory Rate 15 Respiratory Rate 14 Respiratory Rate 12 Respiratory Rate 11 Respiratory Rate 11 Respiratory Rate 13 Blood Pressure 119/58 Blood Pressure 137/61 Blood Pressure 125/60 Blood Pressure 132/62 Blood Pressure 122/58 Blood Pressure 122/58 Blood Pressure 119/55 O2 Sat by Pulse Oximetry 95 O2 Sat by Pulse Oximetry 97 O2 Sat by Pulse Oximetry 100 O2 Sat by Pulse Oximetry 97 O2 Sat by Pulse Oximetry 100 O2 Sat by Pulse Oximetry 99 O2 Sat by Pulse Oximetry 99 O2 Sat by Pulse Oximetry 97 Physical Exam Oriented: Normal Eyes: Normal Ear: Normal Nose: Normal Throat: Normal Respiratory: Generalized and Wheezes Cardiovascular: Normal : Normal GI:Auscultation: Normal GI:Palpation: Normal GI: Tenderness: Normal Skin: Normal Musculoskeletal: Normal and Motor Deficit (MILD DIFFUSE MUSCLE WEAKNESS) Psychiatric: Normal Mood Description: Calm Affect: Flat Speech Pattern: Clear and Appropriate Laboratory and Diagnostics 06/04/23 04:20 06/04/23 04:20 Labs: 06/02/23 17:18 Pleural Fluid - Preliminary 05/24/23 12:27 Blood Blood Culture Gram Stain - Final 05/24/23 12:27 Blood Blood Culture - Final Staphylococcus Epidermidis 05/24/23 12:20 Blood Blood Culture Gram Stain - Final 05/24/23 12:20 Blood Blood Culture - Final Staphylococcus Epidermidis Laboratory WBC 8.4 X10^3/uL (3.6-10.0) 06/04/23 04:20 RBC 3.53 X10^6/uL (3.5-5.4) 06/04/23 04:20 Hgb 9.6 g/dL (12.0-16.0) L 06/04/23 04:20 Hct 29.8 % (36.0-47.0) L 06/04/23 04:20 MCV 84.5 fL (80.0-100.0) 06/04/23 04:20 MCH 27.1 pg (27.0-34.0) 06/04/23 04:20 MCHC 32.1 g/dL (33.0-35.0) L 06/04/23 04:20 RDW 18.1 % (11.6-16.5) H 06/04/23 04:20 Plt Count 225 X10^3/uL (150.0-450.0) 06/04/23 04:20 Plt Count Comment Adequate (ADEQUATE) 05/31/23 04:26 MPV 9.4 fL (7.4-11.0) 06/04/23 04:20 Neut % (Auto) 69.5 % (42.0-75.0) 06/04/23 04:20 Lymph % (Auto) 14.2 % (21.0-51.0) L 06/04/23 04:20 [place] % (Auto) 13.5 % (0.0-13.0) H 06/04/23 04:20 Eos % (Auto) 2.5 % (0.9-2.9) 06/04/23 04:20 Baso % (Auto) 0.3 % (0.2-1.0) 06/04/23 04:20 Neut # (Auto) 5.9 x10^3/uL (2.2-4.8) H 06/04/23 04:20 Lymph # (Auto) 1.2 X10^3/uL (1.3-2.9) L 06/04/23 04:20 [place] # (Auto) 1.1 x10^3/uL (0.3-0.8) H 06/04/23 04:20 Eos # (Auto) 0.2 x10^3/uL (0.0-0.2) 06/04/23 04:20 Baso # (Auto) 0.0 X10^3/uL (0.0-0.1) 06/04/23 04:20 Absolute Nucleated RBC 0.0 /100WBC 06/04/23 04:20 Total Counted 100 05/31/23 04:26 Neutrophils % (Manual) 92 % (39-76) H 05/31/23 04:26 Lymphocytes % (Manual) 4 % (13-43) L 05/31/23 04:26 Monocytes % (Manual) 3 % (4-9) L 05/31/23 04:26 Eosinophils % (Manual) 1 % (0-6) 05/31/23 04:26 Plt Morphology Comment Normal (NORMAL) 05/31/23 04:26 RBC Morphology Abnormal (NORMAL) A 05/31/23 04:26 Hypochromasia 1+ A 05/31/23 04:26 Anisocytosis Slight A 05/31/23 04:26 Stomatocytes Present 05/31/23 04:26 Sample Site Rbr 05/31/23 10:52 ABG pH 7.460 (7.35-7.45) H 05/31/23 10:52 ABG pCO2 66.0 mmHg (35.0-45.0) H* 05/31/23 10:52 ABG pO2 73.0 mmHg (80.0-100.0) L 05/31/23 10:52 ABG HCO3 46.9 mmol/L (22-26) H* 05/31/23 10:52 ABG O2 Saturation 95.0 % (90-100) 05/31/23 10:52 ABG Base Excess 19.5 mmol/L (-2.0-2.0) H 05/31/23 10:52 Nikolay Test Na 05/31/23 10:52 A-a Gradient 130.0 mmHg 05/31/23 10:52 FiO2 40.0 05/31/23 10:52 Blood Gas Comments Pt sunil well. kg/eb 05/31/23 10:52 Sodium 141 mmol/L (136-145) 06/04/23 04:20 Corrected Sodium 142 mmol/L (136-145) 06/04/23 04:20 Potassium 3.6 mmol/L (3.5-5.1) 06/04/23 04:20 Chloride 101 mmol/L (98-107) 06/04/23 04:20 Carbon Dioxide 38.8 mmol/L (21-32) H 06/04/23 04:20 BUN 18 mg/dL (7-18) 06/04/23 04:20 Creatinine 0.96 mg/dL (0.55-1.02) 06/04/23 04:20 Est GFR (MDRD) Af Amer > 60 (>60) 06/04/23 04:20 Est GFR (MDRD) Non-Af > 60 (>60) 06/04/23 04:20 Glucose 135 mg/dL (65-99) H 06/04/23 04:20 POC Glucose (mg/dL) 123 mg/dL (65-99) H 06/04/23 13:08 Lactic Acid 0.8 mmol/L (0.4-2.0) 05/24/23 12:27 Calcium 8.0 mg/dL (8.5-10.1) L 06/04/23 04:20 Corrected Calcium 9.6 mg/dL (8.5-10.1) 06/04/23 04:20 Magnesium 1.8 mg/dL (2.0-2.9) L 06/04/23 04:20 Total Bilirubin 0.30 mg/dL (0.2-1.0) 06/04/23 04:20 AST 45 Units/L (15-37) H 06/04/23 04:20 ALT 83 Units/L (12-78) H 06/04/23 04:20 Alkaline Phosphatase 123 Units/L (46-116) H 06/04/23 04:20 Total Protein 6.0 g/dL (6.4-8.2) L 06/04/23 04:20 Albumin 2.0 g/dL (3.4-5.0) L 06/04/23 04:20 Globulin 4.0 g/dL (2.5-4.5) 06/04/23 04:20 Albumin/Globulin Ratio 0.5 Ratio (1.1-2.1) L 06/04/23 04:20 Specimen Type Clean catch urine 05/28/23 10:50 Urine Color Pale yellow (YELLOW) 05/28/23 10:50 Urine Appearance Clear (CLEAR) 05/28/23 10:50 Urine pH 5.0 (5.0 - 8.0) 05/28/23 10:50 Ur Specific [place] 1.010 (1.000-1.030) 05/28/23 10:50 Urine Protein 2+ (NEGATIVE) 05/28/23 10:50 Urine Glucose (UA) 4+ (NEGATIVE) 05/28/23 10:50 Urine Ketones Negative (NEGATIVE) 05/28/23 10:50 Urine Blood 1+ (NEGATIVE) 05/28/23 10:50 Urine Nitrite Negative (NEGATIVE) 05/28/23 10:50 Urine Bilirubin Negative (NEGATIVE) 05/28/23 10:50 Urine Urobilinogen Normal (NORMAL) 05/28/23 10:50 Ur Leukocyte Esterase Negative (NEGATIVE) 05/28/23 10:50 Urine RBC 0-2 /HPF (0-3) 05/28/23 10:50 Urine WBC 0-2 /HPF (0-5) 05/28/23 10:50 Ur Squamous Epith Cells Rare /HPF (NEGATIVE) 05/28/23 10:50 Ur Renal Epithelial Cell Rare /HPF (NEGATIVE) 05/24/23 14:20 Amorphous Sediment Trace /HPF (NEGATIVE) 05/28/23 10:50 Urine Bacteria Trace /HPF (NEGATIVE) 05/28/23 10:50 Hyaline Casts Moderate /LPF (NEGATIVE) 05/24/23 14:20 Granular Casts Rare /LPF (NEGATIVE) 05/24/23 14:20 Urine Mucus Few /HPF (NEGATIVE) 05/28/23 10:50 Ur Culture Indicated? No/not indicated 05/28/23 10:50 Resp Viral Panel (PCR) See scanned report 05/25/23 16:35 Assessment and Plan 1: Right pleural effusion, status post placement of chest tube. To continue same care, respiratory therapy, incentive spirometer, and out of bed.. Problem Patient Problems: Patient Problems GERD (gastroesophageal reflux disease) (Chronic) K21.9 Diabetes mellitus, type 2 (Chronic) E11.9 Depressive disorder (Chronic) F32.9 Essential hypertension (Chronic) I10 Hypothyroidism (Chronic) E03.9 COPD exacerbation (Acute) J44.1 COPD exacerbation (Acute) J44.1 Altered mental status (Acute) R41.82 Pneumonia (Acute) J18.9 Respiratory failure with hypoxia and hypercapnia (Acute) J96.91, J96.92
[2023-06-04] MEDS: MORPHINE SULFATE INJ 2 MG INJ IVP PRN ×2 (19:05→23:30)
[2023-06-04] MEDS: SNACK - Diabetic Appropriate PO SCH (19:41)
[2023-06-04] MEDS: LEVEMIR SC SCH (20:14)
[2023-06-04] MEDS: KLONOPIN TAB 0.5 MG PO SCH (21:20)
[2023-06-04] MEDS: CRESTOR TAB 10 MG PO SCH (21:20)
[2023-06-04] MEDS: SINGULAIR TAB 10 MG PO SCH (21:20)
[2023-06-05] MEDS: DUONEB 0.5 MG/3 MG (3 mL) NEB SCH ×4 (00:34→17:55)
[2023-06-05 04:37] LABS: BASOPHILS % (AUTO) 0.5 % (0.2-1.0); EOSINOPHILS # (AUTO) 0.1 x10^3/uL (0.0-0.2); EOSINOPHILS % (AUTO) 1.1 % (0.9-2.9); HEMATOCRIT 30.4 % (36.0-47.0); LYMPHOCYTES # (AUTO) 1.1 X10^3/uL (1.3-2.9); LYMPHOCYTES % (AUTO) 14.1 % (21.0-51.0); MEAN CORPUSCULAR HEMOGLOBIN 27.8 pg (27.0-34.0); MEAN CORPUSCULAR HGB CONC 32.8 g/dL (33.0-35.0); MEAN CORPUSCULAR VOLUME 84.6 fL (80.0-100.0); MONOCYTES # (AUTO) 0.9 x10^3/uL (0.3-0.8); MONOCYTES % (AUTO) 10.7 % (0.0-13.0); NEUTROPHILS % (AUTO) 73.6 % (42.0-75.0); PLATELET COUNT 245 X10^3/uL (150.0-450.0); RED BLOOD COUNT 3.59 X10^6/uL (3.5-5.4); RED CELL DISTRIBUTION WIDTH 18.7 % (11.6-16.5); WHITE BLOOD COUNT 8.2 X10^3/uL (3.6-10.0)
[2023-06-05 04:48] LABS: ALANINE AMINOTRANSFERASE 62 Units/L (12-78); ALKALINE PHOSPHATASE 120 Units/L (46-116); ASPARTATE AMINO TRANSFERASE 32 Units/L (15-37); BLOOD UREA NITROGEN 18 mg/dL (7-18); CALCIUM 8.1 mg/dL (8.5-10.1); CARBON DIOXIDE 38.6 mmol/L (21-32); CHLORIDE 99 mmol/L (98-107); COR CA(FOR HYPOALB) 9.7 mg/dL (8.5-10.1); COR NA(FOR HYPERGLY) 139 mmol/L (136-145); CREATININE 0.98 mg/dL (0.55-1.02); GLUCOSE 163 mg/dL (65-99); POTASSIUM 3.8 mmol/L (3.5-5.1); SODIUM 137 mmol/L (136-145); TOTAL PROTEIN 6.2 g/dL (6.4-8.2); eGFR NON BLACK RACES 60 (>60)
[2023-06-05] MEDS: NORCO 10/325 TAB PO PRN ×2 (05:15→18:00)
[2023-06-05] MEDS: BUSPAR PO SCH ×3 (05:18→21:13)
[2023-06-05] MEDS ORDERED: CONSULT PHARMACY - POTASSIUM & MAGNESIUM XX SCH (07:00)
[2023-06-05] MEDS: APRESOLINE TAB 25 MG PO SCH ×4 (08:46→21:22)
[2023-06-05] MEDS ORDERED: K-DUR TAB 20 MEQ PO SCH (09:00)
[2023-06-05] MEDS: MAG-OX TAB PO SCH ×2 (09:00→10:00)
[2023-06-05] MEDS: PREDNISONE TAB 10 MG PO SCH (09:00)
[2023-06-05] MEDS: PULMICORT NEB TX 0.5 MG NEB SCH ×3 (09:17→19:59)
[2023-06-05] MEDS: LEVAQUIN PREMIX IV 500 MG 500 MG/100 ML BAG IV SCH (09:30)
[2023-06-05] MEDS ORDERED: LEXAPRO ONE (09:34)
[2023-06-05] MEDS ORDERED: GLUCOPHAGE ONE ×2 (09:34→20:14)
[2023-06-05] MEDS: LASIX PO SCH (10:00)
[2023-06-05] MEDS: SYNTHROID 88 mcg TAB PO SCH (10:00)
[2023-06-05] MEDS: LEXAPRO PO SCH (10:00)
[2023-06-05] MEDS: LOVENOX INJ 30 MG SYR SC SCH (10:00)
[2023-06-05] MEDS: ACTOS PO SCH (10:00)
[2023-06-05] MEDS: PROTONIX TAB 40 MG PO SCH (10:00)
[2023-06-05] MEDS: GLUCOPHAGE PO SCH ×2 (10:00→21:15)
[2023-06-05] MEDS: ASPIRIN EC 81 MG PO SCH (10:00)
[2023-06-05] MEDS: LINZESS PO SCH (10:00)
[2023-06-05] MEDS: COLACE CAP 100 MG PO SCH (10:00)
[2023-06-05] MEDS: VOLTAREN 1 % GEL MULTI DOSE TUBE TOP SCH ×2 (10:00→21:24)
[2023-06-05] MEDS: FLONASE NASAL SPRAY ENOSTRIL SCH (10:00)
[2023-06-05] MEDS: PATIENT'S HOME MEDICATION (Empagliflozin 25 mg Tablet) PO SCH (10:00)
[2023-06-05] MEDS: WELLBUTRIN XL 150 MG (DAILY) PO SCH (10:00)
[2023-06-05] MEDS: LOPRESSOR TAB 25 MG PO SCH ×3 (10:26→21:14)
[2023-06-05] MEDS: NS 1,000 ML IV 1,000 ML IV SCH (12:00)
[2023-06-05] MEDS: NovoLIN R (or HumuLIN R) SUBCUT PRN (18:01)
[2023-06-05] MEDS: SNACK - Diabetic Appropriate PO SCH (20:00)
[2023-06-05] MEDS: CRESTOR TAB 10 MG PO SCH (21:13)
[2023-06-05] MEDS: SINGULAIR TAB 10 MG PO SCH (21:15)
[2023-06-05] MEDS: LEVEMIR SC SCH (21:22)
[2023-06-05] MEDS: KLONOPIN TAB 0.5 MG PO SCH (21:22)
[2023-06-06 04:46] LABS: BASOPHILS % (AUTO) 0.2 % (0.2-1.0); EOSINOPHILS # (AUTO) 0.1 x10^3/uL (0.0-0.2); EOSINOPHILS % (AUTO) 0.9 % (0.9-2.9); HEMATOCRIT 29.6 % (36.0-47.0); HEMOGLOBIN 9.5 g/dL (12.0-16.0); LYMPHOCYTES # (AUTO) 1.6 X10^3/uL (1.3-2.9); LYMPHOCYTES % (AUTO) 17.4 % (21.0-51.0); MEAN CORPUSCULAR HEMOGLOBIN 27.1 pg (27.0-34.0); MEAN CORPUSCULAR VOLUME 84.6 fL (80.0-100.0); MEAN PLATELET VOLUME 8.9 fL (7.4-11.0); MONOCYTES # (AUTO) 0.8 x10^3/uL (0.3-0.8); MONOCYTES % (AUTO) 8.7 % (0.0-13.0); NEUTROPHILS # (AUTO) 6.6 x10^3/uL (2.2-4.8); NEUTROPHILS % (AUTO) 72.8 % (42.0-75.0); PLATELET COUNT 271 X10^3/uL (150.0-450.0); RED CELL DISTRIBUTION WIDTH 18.4 % (11.6-16.5)
[2023-06-06 05:02] LABS: ALBUMIN 1.8 g/dL (3.4-5.0); CARBON DIOXIDE 37.7 mmol/L (21-32); COR CA(FOR HYPOALB) 9.8 mg/dL (8.5-10.1); CREATININE 1.17 mg/dL (0.55-1.02); POTASSIUM 4.1 mmol/L (3.5-5.1); TOTAL PROTEIN 5.9 g/dL (6.4-8.2)
[2023-06-06] MEDS: DUONEB 0.5 MG/3 MG (3 mL) NEB SCH ×5 (05:10→17:17)
[2023-06-06] MEDS: BUSPAR PO SCH ×3 (06:49→21:04)
[2023-06-06] MEDS: PULMICORT NEB TX 0.5 MG NEB SCH ×3 (07:40→21:05)
--- NOTE | 2023-06-06 08:06 | RAD ---
EXAM:CHEST, 1 VIEWHISTORY:PLEURAL EFFUSION; HX: HTN, COPD, DM SX: STENTS, CABGCOMPARISON:06/04/2023.TECHNIQUE:AP view of the chestFINDINGS:Right chest wall port with tip in good position. Right thoracostomy tube with tip in stable position. Status post median sternotomy. There are several external wires noted. Series stable there is pulmonary vascular congestion. There is blunting of both costophrenic sulci with likely moderate right and small left pleural effusion. No pneumothorax.IMPRESSION:Suspect small left and moderate right pleural effusion. Right thoracostomy tube in similar position.THIS IS AN ELECTRONICALLY VERIFIED FINAL REPORT06/06/2023 7:48 AM - Electronically signed by Law Obando MD
[2023-06-06] MEDS ORDERED: GLUCOPHAGE ONE ×2 (08:25→20:12)
[2023-06-06] MEDS ORDERED: LEXAPRO ONE (08:26)
[2023-06-06] MEDS: PATIENT'S HOME MEDICATION (Empagliflozin 25 mg Tablet) PO SCH (08:51)
[2023-06-06] MEDS: PROTONIX TAB 40 MG PO SCH (08:52)
[2023-06-06] MEDS: LOVENOX INJ 30 MG SYR SC SCH (08:52)
[2023-06-06] MEDS: LINZESS PO SCH ×2 (08:52→08:59)
[2023-06-06] MEDS: ACTOS PO SCH (08:56)
[2023-06-06] MEDS: GLUCOPHAGE PO SCH ×2 (08:56→21:03)
[2023-06-06] MEDS: WELLBUTRIN XL 150 MG (DAILY) PO SCH (08:56)
[2023-06-06] MEDS: COLACE CAP 100 MG PO SCH (08:57)
[2023-06-06] MEDS: SYNTHROID 88 mcg TAB PO SCH (08:59)
[2023-06-06] MEDS: LOPRESSOR TAB 25 MG PO SCH ×2 (08:59→21:04)
[2023-06-06] MEDS: ASPIRIN EC 81 MG PO SCH (08:59)
[2023-06-06] MEDS: FLONASE NASAL SPRAY ENOSTRIL SCH (09:00)
[2023-06-06] MEDS ORDERED: PREDNISONE TAB 10 MG PO SCH (09:00)
[2023-06-06] MEDS: LEXAPRO PO SCH (09:00)
[2023-06-06] MEDS: LASIX PO SCH (09:01)
[2023-06-06] MEDS: NORCO 10/325 TAB PO PRN ×3 (09:01→21:05)
[2023-06-06] MEDS: PREDNISONE TAB 10 MG PO SCH (09:02)
[2023-06-06] MEDS: NS 1,000 ML IV 1,000 ML IV SCH ×2 (09:03→13:36)
--- NOTE | 2023-06-06 09:33 | RAD ---
EXAM:CHEST, 1 VIEWHISTORY:CHEST TUBE;COMPARISON:06/05/2023.TECHNIQUE:AP view of the chestFINDINGS:Status post median sternotomy. Right chest wall port with tip in good position. Right thoracostomy tube in stable position. Similar-appearing right base pleural-parenchymal opacity. No pneumothorax.IMPRESSION:No significant change compared to prior radiograph.THIS IS AN ELECTRONICALLY VERIFIED FINAL REPORT06/06/2023 9:30 AM - Electronically signed by Law Obando MD
--- NOTE | 2023-06-06 09:53 | DR.PROGNOT ---
HOSPITAL PROGRESS NOTE Progress Note for Day of: Progress Note Date: 06/06/23 Chief Complaint Chief Complaint: no changes ,looks comfortable today, denies any chest pain or shortness of breath. Repeated x-ray showed some atelectasis right lower lobe with blunting of the costophrenic margin, the rest of the lung is clear and the chest tube is in good position. chest tube was removed . Past Medical Family Social History Past Med/Fam/Surg Hx: No changes since H&P Allergies: Allergies No Known Allergies [NKA] Allergy (Verified 01/28/22 09:59) Review Of Systems ROS: No change since H&P Vital Signs Vital Signs: Vital Signs Temperature 98.2 F Pulse Rate 71 Pulse Rate 71 Pulse Rate 72 Pulse Rate 69 Pulse Rate 67 Pulse Rate 66 Pulse Rate 65 Pulse Rate 65 Pulse Rate 68 Pulse Rate 68 Pulse Rate 71 Pulse Rate 71 Pulse Rate 73 Pulse Rate 73 Respiratory Rate 16 Respiratory Rate 16 Respiratory Rate 24 Respiratory Rate 28 Respiratory Rate 15 Respiratory Rate 11 Respiratory Rate 14 Respiratory Rate 10 Respiratory Rate 12 Respiratory Rate 11 Respiratory Rate 14 Respiratory Rate 13 Respiratory Rate 16 Respiratory Rate 15 Respiratory Rate 14 Blood Pressure 119/56 Blood Pressure 98/55 Blood Pressure 111/53 Blood Pressure 111/54 Blood Pressure 111/54 Blood Pressure 92/46 Blood Pressure 92/46 Blood Pressure 101/49 Blood Pressure 101/49 Blood Pressure 93/50 Blood Pressure 93/50 Blood Pressure 100/54 Blood Pressure 100/54 O2 Sat by Pulse Oximetry 100 O2 Sat by Pulse Oximetry 96 O2 Sat by Pulse Oximetry 94 O2 Sat by Pulse Oximetry 100 O2 Sat by Pulse Oximetry 100 O2 Sat by Pulse Oximetry 100 O2 Sat by Pulse Oximetry 100 O2 Sat by Pulse Oximetry 100 O2 Sat by Pulse Oximetry 99 O2 Sat by Pulse Oximetry 100 O2 Sat by Pulse Oximetry 100 O2 Sat by Pulse Oximetry 98 O2 Sat by Pulse Oximetry 99 O2 Sat by Pulse Oximetry 100 Physical Exam Oriented: Normal Eyes: Normal Ear: Normal Nose: Normal Throat: Normal Respiratory: Generalized and Wheezes Cardiovascular: Normal : Normal GI:Auscultation: Normal GI:Palpation: Normal GI: Tenderness: Normal Skin: Normal Musculoskeletal: Normal and Motor Deficit (MILD DIFFUSE MUSCLE WEAKNESS) Psychiatric: Normal Mood Description: Calm Affect: Flat Speech Pattern: Clear and Appropriate Laboratory and Diagnostics 06/06/23 04:10 06/06/23 04:10 Labs: 06/02/23 17:18 Pleural Fluid - Final 05/24/23 12:27 Blood Blood Culture Gram Stain - Final 05/24/23 12:27 Blood Blood Culture - Final Staphylococcus Epidermidis 05/24/23 12:20 Blood Blood Culture Gram Stain - Final 05/24/23 12:20 Blood Blood Culture - Final Staphylococcus Epidermidis Laboratory WBC 9.0 X10^3/uL (3.6-10.0) 06/06/23 04:10 RBC 3.50 X10^6/uL (3.5-5.4) 06/06/23 04:10 Hgb 9.5 g/dL (12.0-16.0) L 06/06/23 04:10 Hct 29.6 % (36.0-47.0) L 06/06/23 04:10 MCV 84.6 fL (80.0-100.0) 06/06/23 04:10 MCH 27.1 pg (27.0-34.0) 06/06/23 04:10 MCHC 32.0 g/dL (33.0-35.0) L 06/06/23 04:10 RDW 18.4 % (11.6-16.5) H 06/06/23 04:10 Plt Count 271 X10^3/uL (150.0-450.0) 06/06/23 04:10 Plt Count Comment Adequate (ADEQUATE) 05/31/23 04:26 MPV 8.9 fL (7.4-11.0) 06/06/23 04:10 Neut % (Auto) 72.8 % (42.0-75.0) 06/06/23 04:10 Lymph % (Auto) 17.4 % (21.0-51.0) L 06/06/23 04:10 [place] % (Auto) 8.7 % (0.0-13.0) 06/06/23 04:10 Eos % (Auto) 0.9 % (0.9-2.9) 06/06/23 04:10 Baso % (Auto) 0.2 % (0.2-1.0) 06/06/23 04:10 Neut # (Auto) 6.6 x10^3/uL (2.2-4.8) H 06/06/23 04:10 Lymph # (Auto) 1.6 X10^3/uL (1.3-2.9) 06/06/23 04:10 [place] # (Auto) 0.8 x10^3/uL (0.3-0.8) 06/06/23 04:10 Eos # (Auto) 0.1 x10^3/uL (0.0-0.2) 06/06/23 04:10 Baso # (Auto) 0.0 X10^3/uL (0.0-0.1) 06/06/23 04:10 Absolute Nucleated RBC 0.0 /100WBC 06/06/23 04:10 Total Counted 100 05/31/23 04:26 Neutrophils % (Manual) 92 % (39-76) H 05/31/23 04:26 Lymphocytes % (Manual) 4 % (13-43) L 05/31/23 04:26 Monocytes % (Manual) 3 % (4-9) L 05/31/23 04:26 Eosinophils % (Manual) 1 % (0-6) 05/31/23 04:26 Plt Morphology Comment Normal (NORMAL) 05/31/23 04:26 RBC Morphology Abnormal (NORMAL) A 05/31/23 04:26 Hypochromasia 1+ A 05/31/23 04:26 Anisocytosis Slight A 05/31/23 04:26 Stomatocytes Present 05/31/23 04:26 Sample Site Rbr 05/31/23 10:52 ABG pH 7.460 (7.35-7.45) H 05/31/23 10:52 ABG pCO2 66.0 mmHg (35.0-45.0) H* 05/31/23 10:52 ABG pO2 73.0 mmHg (80.0-100.0) L 05/31/23 10:52 ABG HCO3 46.9 mmol/L (22-26) H* 05/31/23 10:52 ABG O2 Saturation 95.0 % (90-100) 05/31/23 10:52 ABG Base Excess 19.5 mmol/L (-2.0-2.0) H 05/31/23 10:52 Nikolay Test Na 05/31/23 10:52 A-a Gradient 130.0 mmHg 05/31/23 10:52 FiO2 40.0 05/31/23 10:52 Blood Gas Comments Pt sunil well. kg/eb 05/31/23 10:52 Sodium 138 mmol/L (136-145) 06/06/23 04:10 Corrected Sodium 138 mmol/L (136-145) 06/06/23 04:10 Potassium 4.1 mmol/L (3.5-5.1) 06/06/23 04:10 Chloride 99 mmol/L (98-107) 06/06/23 04:10 Carbon Dioxide 37.7 mmol/L (21-32) H 06/06/23 04:10 BUN 21 mg/dL (7-18) H 06/06/23 04:10 Creatinine 1.17 mg/dL (0.55-1.02) H 06/06/23 04:10 Est GFR (MDRD) Af Amer 59 (>60) 06/06/23 04:10 Est GFR (MDRD) Non-Af 49 (>60) L 06/06/23 04:10 Glucose 117 mg/dL (65-99) H 06/06/23 04:10 POC Glucose (mg/dL) 127 mg/dL (65-99) H 06/06/23 05:10 Lactic Acid 0.8 mmol/L (0.4-2.0) 05/24/23 12:27 Calcium 8.0 mg/dL (8.5-10.1) L 06/06/23 04:10 Corrected Calcium 9.8 mg/dL (8.5-10.1) 06/06/23 04:10 Magnesium 2.0 mg/dL (2.0-2.9) 06/06/23 04:10 Total Bilirubin 0.30 mg/dL (0.2-1.0) 06/06/23 04:10 AST 28 Units/L (15-37) 06/06/23 04:10 ALT 47 Units/L (12-78) 06/06/23 04:10 Alkaline Phosphatase 112 Units/L (46-116) 06/06/23 04:10 Total Protein 5.9 g/dL (6.4-8.2) L 06/06/23 04:10 Albumin 1.8 g/dL (3.4-5.0) L 06/06/23 04:10 Globulin 4.1 g/dL (2.5-4.5) 06/06/23 04:10 Albumin/Globulin Ratio 0.4 Ratio (1.1-2.1) L 06/06/23 04:10 Specimen Type Clean catch urine 05/28/23 10:50 Urine Color Pale yellow (YELLOW) 05/28/23 10:50 Urine Appearance Clear (CLEAR) 05/28/23 10:50 Urine pH 5.0 (5.0 - 8.0) 05/28/23 10:50 Ur Specific [place] 1.010 (1.000-1.030) 05/28/23 10:50 Urine Protein 2+ (NEGATIVE) 05/28/23 10:50 Urine Glucose (UA) 4+ (NEGATIVE) 05/28/23 10:50 Urine Ketones Negative (NEGATIVE) 05/28/23 10:50 Urine Blood 1+ (NEGATIVE) 05/28/23 10:50 Urine Nitrite Negative (NEGATIVE) 05/28/23 10:50 Urine Bilirubin Negative (NEGATIVE) 05/28/23 10:50 Urine Urobilinogen Normal (NORMAL) 05/28/23 10:50 Ur Leukocyte Esterase Negative (NEGATIVE) 05/28/23 10:50 Urine RBC 0-2 /HPF (0-3) 05/28/23 10:50 Urine WBC 0-2 /HPF (0-5) 05/28/23 10:50 Ur Squamous Epith Cells Rare /HPF (NEGATIVE) 05/28/23 10:50 Ur Renal Epithelial Cell Rare /HPF (NEGATIVE) 05/24/23 14:20 Amorphous Sediment Trace /HPF (NEGATIVE) 05/28/23 10:50 Urine Bacteria Trace /HPF (NEGATIVE) 05/28/23 10:50 Hyaline Casts Moderate /LPF (NEGATIVE) 05/24/23 14:20 Granular Casts Rare /LPF (NEGATIVE) 05/24/23 14:20 Urine Mucus Few /HPF (NEGATIVE) 05/28/23 10:50 Ur Culture Indicated? No/not indicated 05/28/23 10:50 Resp Viral Panel (PCR) See scanned report 05/25/23 16:35 Assessment and Plan 1: Right pleural effusion, status post removal of chest tube. To continue same care, respiratory therapy, incentive spirometer, and out of bed.. repeat chest Xray .. Problem Patient Problems: Patient Problems GERD (gastroesophageal reflux disease) (Chronic) K21.9 Diabetes mellitus, type 2 (Chronic) E11.9 Depressive disorder (Chronic) F32.9 Essential hypertension (Chronic) I10 Hypothyroidism (Chronic) E03.9 COPD exacerbation (Acute) J44.1 COPD exacerbation (Acute) J44.1 Altered mental status (Acute) R41.82 Pneumonia (Acute) J18.9 Respiratory failure with hypoxia and hypercapnia (Acute) J96.91, J96.92
[2023-06-06] MEDS: APRESOLINE TAB 25 MG PO SCH (09:55)
--- NOTE | 2023-06-06 10:14 | RAD ---
EXAM:CHEST, 1 VIEW, 9:33 a.m.HISTORY:COPD EXACERBATION, CHEST TUBE REMOVAL; COPDCOMPARISON:06/06/2023, 4:43 a.m.FINDINGS:The lungs are clear. No pneumothorax or effusion.Otherwise the lungs are clear. No change from prior study.Cardiomegaly is present. There are calcifications in the arteries consistent with atherosclerosis.The bones are unremarkable.Median sternotomy fixation hardware is present. EKG leads are noted. Right subclavian central venous catheter is in the expected location of the superior vena cava.The previously identified right chest tube has been removed. There is no pneumothorax.IMPRESSION:1. Uncomplicated right chest tube removalTHIS IS AN ELECTRONICALLY VERIFIED FINAL REPORT06/06/2023 10:10 AM - Electronically signed by Nitesh Danielle MD
[2023-06-06] MEDS: VOLTAREN 1 % GEL MULTI DOSE TUBE TOP SCH ×2 (13:38→21:04)
[2023-06-06] MEDS ORDERED: BUTT CREAM (COMPOUND) ONE (17:53)
[2023-06-06] MEDS ORDERED: BUTT CREAM (COMPOUND) TOP PRN (18:01)
[2023-06-06] MEDS: FORTAZ or TAZICEF VIAL INJ 1 G in NS 100 ML IV 100 ML IV SCH (18:54)
[2023-06-06] MEDS: SNACK - Diabetic Appropriate PO SCH (19:00)
[2023-06-06] MEDS: CRESTOR TAB 10 MG PO SCH (21:03)
[2023-06-06] MEDS: LEVEMIR SC SCH (21:03)
[2023-06-06] MEDS: SINGULAIR TAB 10 MG PO SCH (21:04)
[2023-06-06] MEDS: KLONOPIN TAB 0.5 MG PO SCH (21:04)
[2023-06-07] MEDS: DUONEB 0.5 MG/3 MG (3 mL) NEB SCH ×3 (00:57→06:00)
[2023-06-07 05:11] VITALS: O2SAT 100
[2023-06-07] MEDS: BUSPAR PO SCH (05:11)
[2023-06-07 05:28] LABS: BASOPHILS # (AUTO) 0.1 X10^3/uL (0.0-0.1); BASOPHILS % (AUTO) 0.6 % (0.2-1.0); EOSINOPHILS # (AUTO) 0.2 x10^3/uL (0.0-0.2); EOSINOPHILS % (AUTO) 2.6 % (0.9-2.9); HEMOGLOBIN 9.1 g/dL (12.0-16.0); LYMPHOCYTES # (AUTO) 1.4 X10^3/uL (1.3-2.9); LYMPHOCYTES % (AUTO) 15.4 % (21.0-51.0); MEAN CORPUSCULAR HEMOGLOBIN 27.6 pg (27.0-34.0); MEAN CORPUSCULAR HGB CONC 32.6 g/dL (33.0-35.0); MEAN CORPUSCULAR VOLUME 84.7 fL (80.0-100.0); MONOCYTES % (AUTO) 11.2 % (0.0-13.0); NEUTROPHILS # (AUTO) 6.3 x10^3/uL (2.2-4.8); NEUTROPHILS % (AUTO) 70.2 % (42.0-75.0); PLATELET COUNT 277 X10^3/uL (150.0-450.0); RED BLOOD COUNT 3.31 X10^6/uL (3.5-5.4); RED CELL DISTRIBUTION WIDTH 18.4 % (11.6-16.5)
[2023-06-07] MEDS: NORCO 10/325 TAB PO PRN (05:35)
[2023-06-07 05:40] LABS: ALBUMIN 1.8 g/dL (3.4-5.0); CALCIUM 7.9 mg/dL (8.5-10.1); CARBON DIOXIDE 37.1 mmol/L (21-32); COR CA(FOR HYPOALB) 9.7 mg/dL (8.5-10.1); CREATININE 1.32 mg/dL (0.55-1.02); POTASSIUM 3.5 mmol/L (3.5-5.1); TOTAL PROTEIN 5.7 g/dL (6.4-8.2)
[2023-06-07] MEDS ORDERED: CONSULT PHARMACY - POTASSIUM & MAGNESIUM XX SCH (07:00)
[2023-06-07] MEDS ORDERED: LEXAPRO ONE (07:59)
[2023-06-07] MEDS ORDERED: GLUCOPHAGE ONE (08:01)
--- NOTE | 2023-06-07 08:02 | RAD ---
EXAM:CHEST, 1 VIEWHISTORY:S/P CHEST TUBE REMOVAL ;COMPARISON:06/06/2023.TECHNIQUE:AP view of the chestFINDINGS:Right chest wall port with tip in good position. Post median sternotomy and CABG. Cardiac silhouette is mildly enlarged. Similar-appearing right base pleural-parenchymal opacity. Blunted left costophrenic sulcus remains. No pneumothorax.IMPRESSION:No significant change compared to prior radiograph.THIS IS AN ELECTRONICALLY VERIFIED FINAL REPORT06/07/2023 7:59 AM - Electronically signed by Law Obando MD
[2023-06-07] MEDS: LOVENOX INJ 30 MG SYR SC SCH (08:14)
[2023-06-07] MEDS: LEXAPRO PO SCH (08:15)
[2023-06-07] MEDS: SYNTHROID 88 mcg TAB PO SCH (08:15)
[2023-06-07] MEDS: LOPRESSOR TAB 25 MG PO SCH (08:15)
[2023-06-07] MEDS: LINZESS PO SCH (08:15)
[2023-06-07] MEDS: ACTOS PO SCH (08:17)
[2023-06-07] MEDS: COLACE CAP 100 MG PO SCH (08:17)
[2023-06-07] MEDS: FLONASE NASAL SPRAY ENOSTRIL SCH (08:18)
[2023-06-07] MEDS: LASIX PO SCH (08:18)
[2023-06-07] MEDS: PROTONIX TAB 40 MG PO SCH (08:18)
[2023-06-07] MEDS: PATIENT'S HOME MEDICATION (Empagliflozin 25 mg Tablet) PO SCH (08:18)
[2023-06-07] MEDS: ASPIRIN EC 81 MG PO SCH (08:18)
[2023-06-07] MEDS: PREDNISONE TAB 10 MG PO SCH (08:19)
[2023-06-07] MEDS: WELLBUTRIN XL 150 MG (DAILY) PO SCH (08:22)
[2023-06-07] MEDS: VOLTAREN 1 % GEL MULTI DOSE TUBE TOP SCH (08:24)
[2023-06-07] MEDS: PULMICORT NEB TX 0.5 MG NEB SCH (08:47)
[2023-06-07] MEDS ORDERED: K-DUR TAB 20 MEQ PO SCH (09:00)
[2023-06-07] MEDS ORDERED: GLUCOPHAGE PO SCH (09:00)
[2023-06-07 10:04] VITALS: BP 108/71; PULSE 71; RESP 37
[2023-06-07 10:22] VITALS: TEMP 97.6
== END 2023-06-07 11:45 | DRG 190 ==
LOC: ER 11:31 → ICU 16:05
PROVIDERS: ADMIT Internal Medicine; ATTEND Obstetrics & Gynecology Obstetrics